=== PATIENT | female | born 1990 | race Caucasian/White ===

== ENCOUNTER 2016-06-02 06:30 | Inpatient (IN) | payer BC, MEDICAID ==
[2016-05-30 13:14] LABS: HEMATOCRIT 35.5 % (36.0-48.0); HEMOGLOBIN 10.7 g/dL (12-16); MCH 24.5 pg (26.0-34.0); MCHC 30.1 g/dL (31.0-37.0); MCV 81.2 fL (80.0-100.0); RBC 4.37 10x6/uL (4.00-5.40); RDW 16.2 % (11.5-14.5); WBC 8.8 10x3/uL (4.8-10.8)
[2016-05-30 13:32] LABS: APTT 31.2 SECONDS (22.8-39.4); INR 1.11 (0.85-1.17); PROTIME 14.2 SECONDS (11.6-15.0)
[2016-05-30 13:37] LABS: CALC OSMOLALITY 274 mosm/kg (275-300); CALCIUM 8.3 mg/dL (8.5-10.1); CARBON DIOXIDE 30.3 mmol/L (21.0-32.0); CHLORIDE - SERUM 101 mmol/L (98-107); CREATININE - SERUM 0.6 mg/dL (0.6-1.3); GLUCOSE 91 mg/dL (74-106); POTASSIUM - SERUM 4.5 mmol/L (3.5-5.1); SODIUM 138 mmol/L (136-145); UREA NITROGEN 11 mg/dL (7-18); eGFR NON AFRICAN AMERICAN > 90 mL/min (90-120)
[2016-06-02] VITALS (12 sets, daily range): BP systolic 72–94; BP diastolic 32–46; Ht 170.2 cm; Wt 53.6 kg
[~2016-06-02] VITALS: Ht 170.2 cm; Wt 53.6 kg
[~2016-06-02 06:30] MED LIST: ACIDOPHILUS LAC1 CAP PO; ADVIL200 MG PO; ATIVAN0.5 MG PO; BYSTOLIC2.5 MG PO; CELEXA20 MG PO; DAKIN'S 0.125%480 M1 TOPICAL; DITROPAN X10 MG/BOTT PO; ENDOCET 10-3251 TAB PO; FOLIC ACID1 MG PO; FUROSEMIDE20 MG PO; KEPPRA1000 MG PO; KLOR-CON 1010 MEQ PO; LEVOTHYROXINE100 MCG PO; OMEPRAZOLE20 M1 PO; PHENERGAN25 M1 PO; SANTYL30 GM TP; VITAMIN B-1000 MCG/M IM; VITAMIN D250000 UNIT PO
[2016-06-02 07:31] LABS: HCG SERUM NEGATIVE (NEGATIVE)
--- NOTE | 2016-06-02 07:31 | NUR ---
0700 PT STATES NO CHANGES TO HEALTH HISTORY ASSESSMENT SINCE INTERVIEWED ON 05/30/16. PT DENIES ANY SEIZURE ACTIVITY OVER THE WEEKEND. LAST BM: 06/01/16. UA REPORT FROM 05/30/16 DELIVERED BY PT. POSITIVE (+) FOR NITRATE. OR, MARYCHUY FERRARA R.N. CALLED & NOTIFIED. DR. SUNG NOT PRESENT IN OR YET JOSIAS Suarez TO NOTIFY DR. SUNG. Domi SHAHID R.N. 0725 CALL RECEIVED FROM JOSIAS Suarez TO Vianey MENDOZA R.N. STATES DR. SUNG SAID TO CONTINUE THAT SURGERY WILL BE DONE +/NITRATE OKAY. Domi SHAHID R.N.
--- NOTE | 2016-06-02 09:57 | NUR ---
6153 DR. SUNG FINISHES, DR. JIMENEZ IS PAGED
--- NOTE | 2016-06-02 10:11 | NUR ---
1011 DR. JIMENEZ ARRIVES FOR PORT PLACEMENT
--- NOTE | 2016-06-02 10:25 | NUR ---
NOTIFIED PT MOTHER IN 2500 PORT PLACEMENT AT PT REQUEST. NO OBJECTIONS MADE, MOTHER ASKS FOR PROCEDURE TIME AND SAYS OK
--- NOTE | 2016-06-02 11:03 | NUR ---
OK TO TRANSFER TO FLOOR IF SBP>80 PER ANESTHESIA
--- NOTE | 2016-06-02 13:44 | NUR ---
PATIENT IS RESTING QUIETLY WITH EYES CLOSED.
--- NOTE | 2016-06-02 14:01 | NUR ---
PAGED TO NOTIFY HIM OF PATIENT'S BLOOD PRESSURES.
--- NOTE | 2016-06-02 14:05 | NUR ---
NO BAKE MOLDER ASSISTED PATIENT TURNING TO HER LEFT SIDE, POSITIONED WITH A PILLOW.
--- NOTE | 2016-06-02 18:57 | OP ---
PATIENT NAME: SANTANA PADILLA MEDICAL RECORD: [id number] :90 LOCATION:D.MS [id number] ADMISSION DATE:06/02/16 SURGEON: RENNY SUNG MD DATE OF OPERATION: 06/02/2016 PREOPERATIVE DIAGNOSIS: 1. Chronic right hip dislocation. 2. Incomplete paraplegia with paresthesia. POSTOPERATIVE DIAGNOSES: 1. Chronic right hip dislocation. 2. Incomplete paraplegia with paresthesia. SURGEON: Renny Sung MD ANESTHESIA: General. PROCEDURE: Right hip Girdlestone arthroplasty. INTRAOPERATIVE COMPLICATIONS: None. SUMMARY OF PATHOLOGIC FINDINGS: The patient had a chronic dislocated right hip causing recurring buttock wounds from under pressure. OPERATIVE SUMMARY IN DETAIL: After obtaining the appropriate preoperative orthopedic surgery consent as well as anesthetic consultation, evaluation and clearance operating room and placed on the table in supine position. After general laryngeal mask was administered, the patient was placed in a left lateral decubitus position. All pressure points were well padded to include down leg peroneal pad, she was held firmly to the operating table using the vacuum pack suction system. Right lower extremity and hip were then prepped and draped in routine sterile fashion. Posterior approach was utilized and incision was made, taken down the level of the gluteus sulma to the level ____ external rotators. Hip capsule was incised and femoral neck cut was made and the femoral head was removed. Wound was copiously irrigated. The patient did have somewhat of a heriberto-acetabulum. Having completed this irrigation, IT band was closed with #2 Ethibond followed by #1 Vicryl, 2-0 Vicryl and skin ines. Sterile dressings were applied. At this point, the patient was then placed in the supine position and then prepped and draped for port by Dr. Maza and see separate dictation. Please note that all final needle and sponge counts were correct. TRANSINT:[id number] Voice Confirmation ID: [id number] DOCUMENT ID: [id number] PINEDA GOYAL, RENNY SANDOVAL at 1857 CC: [id number] DICTATION DATE: 06/02/16 1010 SENIOR EDITOR: 06/02/16 1327 ADM IN [address] [place] [address]
--- NOTE | 2016-06-02 19:04 | NUR ---
SPOKE WITH NURSE FROM [facility]. SHE STATED "WE JUST GOT THE URINE CULTURE BACK ON SANTANA PADILLA. SHE HAS ESBL IN HER URINE." SHE STATED SHE WILL FAX THE RESULTS.
--- NOTE | 2016-06-02 19:15 | NUR ---
RECIEVED SHIFT REPORT. PT IS LYING IN BED. ALERT AND ORIENTED AND ABLE TO VERBALIZE NEEDS. IV IS PATENT AND FLUIDS ARE RUNNING PER ORDER. PT IS ABLE TO TURN SELF IN BED. COLOSTOMY NOTED TO LEFT ABDOMEN. CATHTER ATTACHED TO RIGHT ABDOMEN. DRESSING TO RIGHT HIP C/D/I. DRESSING TO BUTTOCKS C/D/I. PT STATES PAIN IS 9/10 WITH CATTLE AND WHEAT FARMER PUMP. ISOLATION PRECAUTIONS IN PLACE. NO NEEDS ARE VERBALIZD AT THIS TIME. WILL CONTINUE TO MONITOR. SIDE RAILS ARE UP X 2. BED IS IN LOWEST POSITION. CALL LIGHT IS WITHIN REACH.
--- NOTE | 2016-06-02 19:30 | NUR ---
PUT PATIENT IN CONTACT ISOLATION. EXPLAINED TO PATIENT ABOUT THE ISOLATION PRECAUTIONS. PATIENT VERBALIZED UNDERSTANDING.
--- NOTE | 2016-06-02 22:00 | NUR ---
SHIFT ASSESSMENT COMPLETED. NIGHT MEDS GIVEN WITH NO PROBLEMS. PT SELF CLEANED CATHETER AREA. NO NEEDS ARE VOICED. WILL MONITOR. SIDE RAILS X 2. BED LOW. CALL LIGHT IN REACH.
[2016-06-03] VITALS: BP 78/40
[2016-06-03 04:00] VITALS: BP 86/42
[2016-06-03 05:39] LABS: HEMATOCRIT 29.3 % (36.0-48.0); HEMOGLOBIN 8.6 g/dL (12-16); MCH 23.7 pg (26.0-34.0); MCHC 29.4 g/dL (31.0-37.0); MCV 80.7 fL (80.0-100.0); MEAN PLATELET VOLUME 8.8 fL (7.4-10.4); RBC 3.63 10x6/uL (4.00-5.40); RDW 16.2 % (11.5-14.5); WBC 6.3 10x3/uL (4.8-10.8)
[2016-06-03 08:38] VITALS: BP 84/33
[2016-06-03 13:04] VITALS: BP 86/40
--- NOTE | 2016-06-03 15:06 | NUR ---
WOUND CARE: PT HAS HX OF PRESSURE INJURIES. HER ENTIRE BOTTOM SACRUM TO PERINIUM AND NEARLY HIP TO HIP IS A STAGE 4 PRESSURE INJURY. IT DOES APPEAR TO HAVE HEALED SOME EVIDENCED BY NEW PINK TISSUE AT [facility]. THIS WOUND IS BEING TREATED WITH 0.125 DAKINS SOLUTION WET TO DRY DRESSINGS/DAILY. AFTER PACKING WOUND AND LOOSELY FILLING UNDERMINING AND THE WOUND BED, IT IS COVERED WITH 4X4S AND ABD PADS. IT IS THEN SECURED WITH MEDIPORE TAPE. THERE IS A STAGE 3// 1CM X 1CM X 0.3CM ON LEFT OUTER ANKLE. SANTYL IS BEING APPLIED TO THIS WOUND DAILY. LEFT GROIN HAS AN OPEN AREA MEASURING 4CM X 1CM X 0.5CM. SANTYL IS BEING APPLIED DAILY TO THIS WOUND. RIGHT HIP DRESSING FROM SURGERY IS DRY AND INTACT. WOUND CARE WILL MONITOR.
--- NOTE | 2016-06-03 15:45 | NUR ---
* Is the patient Alert and Oriented? Yes 0 * Preadmission Environment Flat Knitter Half-Way 0 * [facility] * ADLs Partial Dependent 0 * Partial ADLs (Assistance needed) Ambulation Bathing Dressing Medication Management Toileting 0 * Equipment Hospital Bed Abdullahi Lift Ostomy Supplies Wheelchair 0 * Additional services required to return to the preadmission environment? Yes 0 * Can the patient safely return to the preadmission environment? Yes 0 * Has this patient been hospitalized within the prior 30 days at any hospital? No 06/03/2016 15:46 DCP: Discharge Planning Patient Name: SANTANA PADILLA Admission Status: Elective Accout number: [id number] Admission Date: 06-02-2016 : 1990 Admission Diagnosis: Attending: KARI Current LOS: 1 Anticipated DC Date: 06-05-2016 Planned Disposition: Primary Insurance: BLUE CROSS [facility] Discharge Planning Comments: CM met with patient to assess dc plans/needs. Patient states she has been a resident at [facility] since August of 2015. At dc, she plans to return there. Spoke with Kaity at facility - they are going to try to get insurance auth for a skilled bed when she discharges. Referral faxed. CM will follow. Local Announcer: Rebeca Park
[2016-06-03 17:07] VITALS: BP 87/44
[2016-06-03 18:54] LABS: APPEARANCE CLOUDY (CLEAR); BILIRUBIN NEGATIVE (NEGATIVE); COLOR YELLOW (YELLOW); GLUCOSE NEGATIVE (NEGATIVE); KETONE NEGATIVE (NEGATIVE); LEUKOCYTE ESTERASE 1+ (NEGATIVE); NITRITE POSITIVE (NEGATIVE); PROTEIN TRACE mg/dL (NEGATIVE); SPECIFIC GRAVITY 1.015 (1.005-1.020); UROBILINOGEN NORMAL (NORMAL)
[2016-06-03 18:55] LABS: BACTERIA MANY /hpf (NONE SEEN); RED CELLS - URINE 0-5 /hpf (0-5)
[2016-06-03 20:00] VITALS: BP 80/32
--- NOTE | 2016-06-03 20:56 | NUR ---
PATIENT RESTING IN BED. C/O BREAK THROUGH PAIN. PRN PERCOCET GIVEN ORDERED. SCHEDULED MEDS GIVEN. ASSESSMENT COMPLETED. DENIES ANY OTHER NEEDS AT THIS TIME. BED LOW. CALL LIGHT IN REACH
--- NOTE | 2016-06-03 22:20 | NUR ---
RESTING WITH EYES CLOSED, RESP WITH EASE, IV INFUSING WITH EASE, NO DISTRESS NOTED, FALL PRECAUTIONS IN PLACE, CL IN REACH
[2016-06-04] VITALS (13 sets, daily range): BP systolic 80–96; BP diastolic 38–54
[2016-06-04 04:29] LABS: HEMATOCRIT 27.3 % (36.0-48.0); MCHC 29.3 g/dL (31.0-37.0); MEAN PLATELET VOLUME 8.8 fL (7.4-10.4); RBC 3.33 10x6/uL (4.00-5.40); RDW 16.2 % (11.5-14.5); WBC 5.5 10x3/uL (4.8-10.8)
--- NOTE | 2016-06-04 07:30 | NUR ---
PATIENT RECEIVED IN LEFT LATERAL POSITION RESTING WITH EYES CLOSED. RESPIRATIONS EVEN AND UNLABORED. SIDE RAILS UP X2. BED IN LOW POSITION. CALL LIGHT IN REACH.
--- NOTE | 2016-06-04 09:23 | NUR ---
PATIENT ALERT IN HIGH CRAWFORD POSITION EATING BREAKFAST. TOLERATING WELL. SCHEDULED MEDICATION ADMINISTERED WELL PRN PERCOCET FOR PAIN 11/23. REFUSES TO HAVE DRESSINGS CHANGED AT THIS TIME. INSTRUCTED PATIENT TO LET NURSE KNOW WHEN SHE WAS READY. STATES UNDERSTANDING. ATTEMPTED TO INSTRUCT PATIENT ON USE INCENTIVE SPIROMETER. PATIENT STATES "I WON'T USE THAT." DENIES NEEDS. SIDE RAILS UP X2. BED IN LOW POSITION. CALL LIGHT AND BONDING AGENT BUTTON IN REACH.
--- NOTE | 2016-06-04 10:54 | NUR ---
SPOKE WITH SAL JOSEPH APN FOR DR. SUNG. MRS. PADILLA IS CONCERNED ABOUT HER PAIN CONTROL DURING HER BLOOD TRANSFUSION , SHE STATES " I TAKE PERCOCET ROUTINELY AND IT WILL NOT TOUCH THIS PAIN." ORDERS RECEIVED FOR DILAUDID 2 MG IVP TIMES ONE PRIOR TO BLOOD TRANSFUSION THE FARM EQUIPMENT MECHANIC CAN NOT RUN WITH THE BLOOD.
--- NOTE | 2016-06-04 11:50 | NUR ---
PRBC INITIATED PER ORDER. VITAL SIGNS STABLE. SIDE RAILS UP X3. BED IN LOW POSITION. CALL LIGHT IN REACH.
--- NOTE | 2016-06-04 11:55 | NUR ---
DRESSINGS TO BUTTOCK, LEFT ANKLE AND LEFT GROIN CHANGED PER ORDERS. WELL TOLERATED.
--- NOTE | 2016-06-04 14:15 | NUR ---
PRBC TRANSFUSION COMPLETE. VITAL SIGNS STABLE. TOLERATED WELL. SIDE RAILS UP X2. BED IN LOW POSITION. CALL LIGHT IN REACH.
--- NOTE | 2016-06-04 17:52 | NUR ---
ALERT IN BED TALKING ON PHONE. RATES PAIN /. PERCOCET PER PRN ORDER. SIDE RAILS UP X2. BED IN LOW POSITION. CALL LIGHT IN REACH.
--- NOTE | 2016-06-04 19:00 | NUR ---
PATIENT IN BED WATCHING TV. HOB 40 DEGREES. AAOX4. RR EVEN AND UNLABORED. 0 S/S OF DISTRESS. STATES PAIN IS A 9/10. LEFT INFUSAPORT PATENT WITH DRESSING CDI. UROSTOMY AND COLOSTOMY TO ABD. DRESSINGS TO BUTTOCKS, LEFT GROIN, AND LEFT ANKLE CDI. SISTER AT BEDSIDE. SRX2. BED LOW. CALL LIGHT WITHIN REACH.
--- NOTE | 2016-06-04 22:15 | NUR ---
ASSESSMENT COMPLETE. NIGHTTIME MEDS GIVEN. PERCOCET GIVEN FOR BREAKTHROUGH PAIN. WILL REASSESS.
--- NOTE | 2016-06-05 02:10 | NUR ---
PERCOCET GIVEN FOR BREAKTHROUGH PAIN. DIGITAL MEDIA PRODUCER SYRINGE CHANGED.
[2016-06-05 04:00] VITALS: BP 81/36
[2016-06-05 06:25] LABS: HEMATOCRIT 29.3 % (36.0-48.0); HEMOGLOBIN 8.7 g/dL (12-16); MCH 24.3 pg (26.0-34.0); MCHC 29.7 g/dL (31.0-37.0); MCV 81.8 fL (80.0-100.0); MEAN PLATELET VOLUME 8.7 fL (7.4-10.4); RBC 3.58 10x6/uL (4.00-5.40); RDW 15.9 % (11.5-14.5); WBC 5.5 10x3/uL (4.8-10.8)
[2016-06-05 06:35] LABS: CALC OSMOLALITY 275 mosm/kg (275-300); CALCIUM 7.7 mg/dL (8.5-10.1); CARBON DIOXIDE 29.4 mmol/L (21.0-32.0); CHLORIDE - SERUM 105 mmol/L (98-107); CREATININE - SERUM 0.5 mg/dL (0.6-1.3); GLUCOSE 110 mg/dL (74-106); POTASSIUM - SERUM 3.9 mmol/L (3.5-5.1); SODIUM 139 mmol/L (136-145); UREA NITROGEN 5 mg/dL (7-18); eGFR NON AFRICAN AMERICAN > 90 mL/min (90-120)
--- NOTE | 2016-06-05 07:25 | NUR ---
PATIENT RECEIVED ALERT IN HIGH CRAWFORD POSITION. NO SIGNS OF DISTRESS NOTED. REQUESTING JELLO X3. C/O SORE THROAT AND STATES THE JELLO IS THE ONLY THING THAT WILL HELP. DENIES FURTHER NEEDS. SIDE RAILS UP X2. BED IN LOW POSITION. CALL LIGHT IN REACH.
[2016-06-05 08:32] VITALS: BP 81/33
[2016-06-05] MEDS ORDERED: ELIQUIS2.5 MG PO (08:55)
[2016-06-05] MEDS ORDERED: DILAUDID8 MG PO (08:56)
--- NOTE | 2016-06-05 09:15 | NUR ---
PATIENT ALERT IN BED. NO SIGNS OF DISTRESS NOTED. SCHEDULED MEDICATION ADMINISTERED. PATIENT ANTICIPATING D/C TO FACILITY TODAY. REFUSES DRESSING CHANGES SINCE SHE IS TO D/C TODAY SHE WANTS HER NORMAL WOUND CARE NURSE TO CHANGE THEM. DENIES NEEDS. SIDE RAILS UP X2. BED IN LOW POSITION. CALL LIGHT IN REACH.
--- NOTE | 2016-06-05 10:38 | NUR ---
06/05/2016 10:32 DCP: Discharge Planning Patient Name: SANTANA PADILLA Encounter No: [id number] : 1990 Primary Insurance: BLUE CROSS [facility] Anticipated DC Date: 06-05-2016 Planned Disposition: [facility] Facility External Planned Provider: [facility] DCP follow-up note: DC order rec'd. Patient will transfer back to [facility] via ambulance to a custodial bed. Nursing to call report to [phone]. Patient in agreement with discharge plan. No changes to plan. Rebeca Park
--- NOTE | 2016-06-05 10:45 | NUR ---
INFUSAPORT FLUSHED AND DEACCESSED PER PROTOCOL. SITE COVERED WITH GAUZE AND BANDAID. WELL TOLERATED.
--- NOTE | 2016-06-05 11:50 | NUR ---
PATIENT D/C TO [facility] WITH [facility]. REPORT CALLED TO [facility]. NEGRITO RECEIVED REPORT
--- NOTE | 2016-06-13 13:21 | OP ---
PATIENT NAME: SANTANA PADILLA MEDICAL RECORD: [id number] :[birth year] LOCATION:D.MS [id number] ADMISSION DATE:06/02/16 SURGEON: SANTANA JIMENEZ MD DATE OF OPERATION: 06/02/2016 PREOPERATIVE DIAGNOSES: 1. Need for chronic IV access. 2. Paraplegia. 3. Recurrent hip dislocation. POSTOPERATIVE DIAGNOSES: 1. Need for chronic IV access. 2. Paraplegia. 3. Recurrent hip dislocation. PROCEDURE: Left subclavian vein PowerPort placement with fluoroscopic interpretation. SURGEON: Santana Jimenez MD. REPORT OF PROCEDURE: The patient's left chest was prepped and draped in sterile fashion. A needle was used to cannulate the left subclavian vein. The guidewire was advanced with ease. Fluoro was then used to note that the wire was in good position in the venous system. A skin incision was made in the left lateral chest and a subcutaneous pouch was made overlying the pectoral fascia and the catheter was then tunneled between this pouch and the wire exit site. The port was sutured to the pectoral fascia using interrupted 2-0 Prolenes times 2. The catheter was then cut with a beveled tip at 19 cm. The dilator trocar device was placed over the wire and the wire and dilator were removed. The catheter tip was advanced through the trocar and the trocar was removed. The catheter tip resting in good position in the superior vena cava. The catheter aspirated nonpulsatile dark blood and flushed easily with heparinized saline. The subcutaneous pouch was reapproximated with interrupted 3-0 Vicryls and the skin was closed with running subcutaneous 5-0 Monocryl. COMPLICATIONS: None. CONDITION: Stable. ANESTHESIA: General endotracheal. BLOOD LOSS: Minimal. TRANSINT:[id number] Voice Confirmation ID: [id number] DOCUMENT ID: [id number] SANTANA JIMENEZ MD at 1321 CC: [id number] DICTATION DATE: 06/02/16 1101 FEATURES EDITOR: 06/02/16 1307 DIS IN 06/05/16 [place] [address]
== END 2016-06-05 11:50 | DRG 498 ==
LOC: D.OPS 06:30 → D.PAN 10:15 → D.OPS 10:41 → D.MS 10:41 → D.OPS 11:00 → D.PAN 11:00 → EDSTATUS 11:00 → D.MS 12:15 → D.OPS 14:50 → D.MS 14:50
PROVIDERS: Anesthesiology; Surgery; ADMIT Orthopaedic Surgery
PROC: B5181ZA Fluoroscopy of Superior Vena Cava using Low Osmolar Contrast, Guidance (ICD-10-PCS; 2016-06-02)
PROC: 0QB60ZZ Excision of Right Upper Femur, Open Approach (ICD-10-PCS; principal; 2016-06-02 08:30)
PROC: 02HV33Z Insertion of Infusion Device into Superior Vena Cava, Percutaneous Approach (ICD-10-PCS; 2016-06-02 08:30)
DX: M24.451 Recurrent dislocation, right hip (principal); G82.22 Paraplegia, incomplete; G40.909 Epilepsy, unspecified, not intractable, without status epilepticus; K21.9 Gastro-esophageal reflux disease without esophagitis; R01.1 Cardiac murmur, unspecified; F32.9 Major depressive disorder, single episode, unspecified; F41.9 Anxiety disorder, unspecified; R82.71 Bacteriuria; B96.20 Unspecified Escherichia coli [E. coli] as the cause of diseases classified elsewhere; Z72.0 Tobacco use

== ENCOUNTER → 2016-08-01 11:06 | Outpatient (CLI) | payer BC, MEDICAID ==
[2016-06-02 11:43] VITALS: BMI 18.5
[~2016-08-01 11:06] MED LIST changes: +DILAUDID8 MG PO; +ELIQUIS2.5 MG PO
== END | disposition home or self-care (01) ==
LOC: D.OPS 07-31 11:30 → D.SP 07-31 14:00 → D.OPS 11:06
DX: T85.9XXA Unspecified complication of internal prosthetic device, implant and graft, initial encounter (principal)

== ENCOUNTER 2016-08-03 03:59 | Inpatient (IN) | payer BC, MEDICAID ==
[~2016-08-03] VITALS: Ht 170.2 cm; Wt 56.8 kg
--- NOTE | ~2016-08-03 | OP ---
PATIENT NAME: SANTANA PADILLA MEDICAL RECORD: [id number] :90 LOCATION:D.M2 D.2107 ADMISSION DATE:08/03/16 SURGEON: RENE COY MD DATE OF OPERATION: 08/12/2016 DATE OF OPERATION: 08/12/2016. PREOPERATIVE DIAGNOSES: 1. Bacteremia. 2. Infected port. 3. Osteomyelitis. POSTOPERATIVE DIAGNOSES: 1. Bacteremia. 2. Infected port. 3. Osteomyelitis with occlusion of the right basilic vein and very tight stenosis of the right cephalic vein. PROCEDURE: 1. Placement of a right cephalic vein midline. 2. Nonselective cephalic venogram with immediate surgeon interpretation. 3. Nonselective right basilic venogram without immediate surgeon's interpretation. 4. Removal of infected left infraclavicular subcutaneous port and vascular catheter. 5. Immediate surgeon interpretation of the ultrasonographic and fluoroscopic interpretation. SURGEON: Rene Coy MD. MACHINIST SET UP: None. BLOOD LOSS: Minimal. ANESTHESIA: General. COMPLICATIONS: None. The patient has an infected port. Dr. Costa has asked for the port to be removed. She would like to have a nonpermanent vascular access placed at this time because the patient does have a fungemia. OPERATIVE COURSE: The patient was conveyed to the operating room electively on 08/12/2016. General anesthesia was induced by the anesthesia staff. The right upper extremity was sterilely prepped and draped. It was abducted at 90 degrees to the patient's trunk. A Venice tourniquet was placed in the upper arm. Ultrasonographic images were obtained and one of these was placed in the chart. The surgeon interpreted the ultrasonographic images. No radiologist was present for this procedure. The ultrasonographic images and radiographic images were interpreted by the surgeon and are dictated within the body of this operative note. I identified a compressible basilic vein. The ultrasound transducer was placed in an axial orientation. I percutaneously accessed the basilic vein in an axial orientation. A guidewire passed for a short period of time, but as the basilic OPERATIVE REPORT [id number] SANTANA PADILLA vein joined the brachial vein to become the axillary vein in the chest, I would not pass any further. Through the needle, a venogram was performed. This revealed some back flow of dye from the basilic vein into the brachial vein. There was a tiny wisp of dye that went antegrade up the basilic vein and then stopped. Therefore, placement of a PICC line was not going to be a reasonable option in this case. I wanted to avoid placing a PICC catheter in the brachial vein for fear of injury to nervous structure. I identified the cephalic vein, which was compressible. It was placed in an axial orientation. The cephalic vein was percutaneously accessed with the guidewire advanced. Advanced to about the level of the shoulder, it would not advance any further. The guidewire was removed. I injected dye through the needle. The venogram revealed that there was a wisp of dye that advanced up the cephalic vein into the subclavian venous system; however, it was very narrow and it was going to require balloon angioplasty in order to advance a catheter through this very narrowed area. I elected instead to place a midline. I shortened the PICC catheter. The dilator introducer was placed over the guidewire. The dilator was removed. Over the guidewire, the shortened mid catheter was advanced. The peel-away introducer was removed. The mid catheter was then sutured in placed, and then also affixed to the underlying skin with the PICC adhesive device. I then injected some dye through the midline. It revealed that the midline was well placed, there was no extravasation of contrast and contract flowed freely through this narrowed area of the cephalic vein and into the subclavian venous system. Attention was then turned to removal of the left side of subcutaneous port and vascular catheter. This area was sterilely prepped and draped. I incised through the patient's scar. I dissected down to the port and vascular catheter. I cut up the sutures from the port to the underlying pseudo bursa. A pursestring suture was placed around the fibrous sheath into the vascular system. This was a 3-0 Vicryl suture. The port and vascular catheter were then removed in their entireties. The cultures were obtained within the port pocket. I cauterized the port pocket. The subdermis was approximated with interrupted 3-0 Vicryl sutures. A sterile dressing was applied. The patient was then extubated and conveyed to post-anesthesia care unit where she was in stable condition. The tip of the vascular catheter was sent for culture. TRANSINT:[id number] Voice Confirmation ID: [id number] DOCUMENT ID: [id number] RENE COY MD CC: Eve COSTA [id number] DICTATION DATE: 08/12/16 1733 PICKING MACHINE OPERATOR: 08/13/16 0128 ADM IN [facility] [address] [id number]
[2016-08-03 04:46] LABS: HEMATOCRIT 28.2 % (36.0-48.0); HEMOGLOBIN 8.1 g/dL (12-16); MCH 22.5 pg (26.0-34.0); MCHC 28.7 g/dL (31.0-37.0); MCV 78.3 fL (80.0-100.0); MEAN PLATELET VOLUME 9.5 fL (7.4-10.4); PLATELET COUNT 359 10x3/uL (130-400); RDW 17.6 % (11.5-14.5); WBC 28.9 10x3/uL (4.8-10.8)
[2016-08-03 05:02] LABS: ALBUMIN 1.6 g/dL (3.4-5.0); ANION GAP 11.2 mmol/L (8-16); BILIRUBIN - TOTAL 0.19 mg/dL (0.2-1.3); CALCIUM 8.4 mg/dL (8.5-10.1); CARBON DIOXIDE 29.1 mmol/L (21.0-32.0); CREATININE - SERUM 1.2 mg/dL (0.6-1.3); POTASSIUM - SERUM 3.3 mmol/L (3.5-5.1); PROTEIN - SERUM 7.2 g/dL (6.4-8.2)
[2016-08-03 05:11] LABS: BASOPHILS 1 % (0-2); EOSINOPHILS 2 % (0-7); LYMPHOCYTES 24 % (15-50); MONOCYTES 5 % (2-11); NEUTROPHILS 68 % (40-80)
[2016-08-03 05:12] LABS: APPEARANCE HAZY (CLEAR); BACTERIA MANY /hpf (NONE SEEN); BILIRUBIN NEGATIVE (NEGATIVE); COLOR YELLOW (YELLOW); EPITHELIAL CELLS NSEEN /hpf (0-5); GLUCOSE NEGATIVE (NEGATIVE); KETONE NEGATIVE (NEGATIVE); LEUKOCYTE ESTERASE 2+ (NEGATIVE); NITRITE POSITIVE (NEGATIVE); PROTEIN 1+ mg/dL (NEGATIVE); SPECIFIC GRAVITY 1.015 (1.005-1.020); UROBILINOGEN NORMAL (NORMAL); WHITE CELLS - URINE >50 /hpf (0-5)
[2016-08-03 05:12] LABS: PLATELET ESTIMATE NORMAL
[2016-08-03 07:23] VITALS: BP 91/37
--- NOTE | 2016-08-03 07:30 | NUR ---
ALERT AND ORIENTED X4. ARRIVE TO ROOM AT 0630. QUICK START COMPLETED BY ALEXEI ELAINE. COMPLAINS OF ABDOMINAL PAIN 12/23. INITIATE PAIN MANAGEMENT ORDERED. SELF CARES FOR COLOSTOMY. UROSTOMY DRAINING INTO DEGROOT BAG. DENIES SOB. ABLE TO REPOSITION UPPER BODY IN BED INDEPENDENTLY. CONTINUE PLAN OF CARE AND ADMISSION PROCESS. BED LOCKED AND LOW. CALL LIGHT IN REACH. TWO SIDERAILS UP.
[2016-08-03 12:09] VITALS: BP 87/35
[2016-08-03 16:10] VITALS: BP 87/41
[2016-08-03 18:21] VITALS: BP 91/37; BMI 18.8
--- NOTE | 2016-08-03 21:34 | NUR ---
REC'D. AT [facility]. OF SHIFT IN BED WATCHING TV.DRINKING PUNCH/EATING JELLO. C/O NAUSEA AND PAIN STILL.INSTRUCTED NOT TIME FOR NAUSEA OR PAIN MEDS. AT PRESENT TIME.WILL CONTINUE TO MONITOR FOR ANY CHGES. AND FOLLOW CURRENT PLAN OF CARE
[2016-08-03 21:38] VITALS: BP 89/56
--- NOTE | 2016-08-04 00:28 | NUR ---
ASSOCIATE DIRECTOR REGULATORY AFFAIRS AT BEDSIDE FOR VS. NEEDS ADDRESSED AT THIS TIME. CALL LIGHT IN REACH. WILL CONT TO MONITOR.
[2016-08-04 03:13] VITALS: BP 80/29
[2016-08-04 06:06] LABS: CARBON DIOXIDE 29.2 mmol/L (21.0-32.0); CHLORIDE - SERUM 105 mmol/L (98-107); GLUCOSE 84 mg/dL (74-106); SODIUM 141 mmol/L (136-145)
--- NOTE | 2016-08-04 06:13 | NUR ---
BLOOD PRESSURE 0515 PERCOCET CRUSHED AND GIVEN PER REQUEST. AT 0600 REQUESTING LOLA ENCOURAGED TO PLEASE TAKE DECREASE IN BLOOD PRESSURE READINGS SERIOUSLY 80/29.STATES DURING THE DAY SHIFT THEY ONLY MAKE ME WAIT 30 MINUTES BETWEEN IV AND PO PAIN MEDS.
[2016-08-04 06:20] LABS: CALC OSMOLALITY 279 mosm/kg (275-300); CREATININE - SERUM 0.6 mg/dL (0.6-1.3); POTASSIUM - SERUM 4.2 mmol/L (3.5-5.1); UREA NITROGEN 13 mg/dL (7-18); eGFR NON AFRICAN AMERICAN > 90 mL/min (90-120)
[2016-08-04 06:26] LABS: BASOPHILS 0.2 % (0-2); EOSINOPHILS 1.1 % (0-7); HEMATOCRIT 25.2 % (36.0-48.0); IMMATURE GRANULOCYTES 0.8 % (0-5); LYMPHOCYTES 27.2 % (15-50); MCH 22.3 pg (26.0-34.0); MCHC 27.8 g/dL (31.0-37.0); MEAN PLATELET VOLUME 9.5 fL (7.4-10.4); MONOCYTES 3.1 % (2-11); NEUTROPHILS 67.6 % (40-80); PLATELET COUNT 374 10x3/uL (130-400); RBC 3.14 10x6/uL (4.00-5.40)
[2016-08-04 06:46] VITALS: BP 85/49
[2016-08-04 06:49] LABS: WBC 11.6 10x3/uL (4.8-10.8)
[2016-08-04 06:50] LABS: MCV 80.3 fL (80.0-100.0)
--- NOTE | 2016-08-04 08:08 | NUR ---
AM ROUNDS - PT IS AWAKE AND ALERT. LEFT CHEST INFUSAPORT, NS @ 100CC/HR. PT IS A PARAPALIGIC. PT IS REQUESTING DILAUDID. EXPLAINED TO PT THAT HER BP IS VERY LOW AND IT CONCERNS ME. WILL CONTINUR TO MONITOR.
[2016-08-04 08:24] LABS: % SATURATION 39 % (15-55); IRON 29 ug/dl (35-150); TOTAL IRON BIND CAPACITY 74 ug/dl (260-445)
[2016-08-04 08:25] VITALS: BP 81/33
[2016-08-04 08:26] LABS: UNSAT IRON BIND CAPACITY 45 ug/dl (150-375)
[2016-08-04 13:03] VITALS: BP 81/34
--- NOTE | 2016-08-04 16:47 | NUR ---
SCD'S ON MAURO LE
[2016-08-04 17:08] VITALS: BP 90/43
[2016-08-04 21:27] VITALS: BP 88/49
--- NOTE | 2016-08-05 00:56 | NUR ---
NURSE ROUNDS 08/04/16 @ 22:00 - PT AWAKE, ALERT, ORIENTED, VISITOR AT BEDSIDE WHO IDENTIFIES HERSELF PTS WOUND NURSE AT [facility]. PT IS REQUESTING HER PRN DILAUDID. I DID ADMINISTER WITH THE CAREFUL CONSIDERATION OF PTS B/P RUNNING LOW. PT STATES SHE USUALLY DOES NOT GO ABOVE 90'S OVER 60'S, AND HAS BEEN LOW 60'S OVER 30'S. I DID GIVE PT 4 CONTAINERS OF APPLEJUICE PER HER REQUEST AND A GRAPE POPSICLE. PT DENIES ANY FURTHER NEEDS. WE DISCUSSED HER NEED FOR BLOOD, IN WHICH PT STATES SHE HAS HAD MANY TRANSFUSIONS WITHOUT ANY REACTIONS THUS FAR. I AM WAITING FOR ANTIBIOTICS TO COMPLETE BEFORE TRANSFUSING THE PRN PRBC'S. WILL CONTINUE TO MONITOR CLOSELY. BED LOW, CALL LIGHT IN REACH, SIDE RAILS X 2, HOB 30 DEGREES.
[2016-08-05 01:46] VITALS: BP 95/36
--- NOTE | 2016-08-05 02:22 | NUR ---
PT REQUESTING PAIN MEDICINE, WANTING DILAUDID. PTS B/P IS TOO LOW AT THIS TIME. PT IS REQUESTING TO HAVE IT RECHECKED. WILL DO THAT AND CONTINUE TO MONITOR CLOSELY. VANC IS ALMOST DONE INFUSING, SO WILL START BLOOD TRANSFUSION SOON.
--- NOTE | 2016-08-05 03:49 | NUR ---
PT AWAKE, ALERT, ORIENTED, CALL FOR ASSISTANCE, HER COLOSTOMY BAG HAD BUST. PT RECEIVED A COMPLETE BED BATH, LINEN CHANGE, GOWN CHANGE, SOILED SHORTS WERE PLACED IN A ZIP LOCK BAGGIE AND PLACED IN A PTS BELONGINGS BAG. PT HAS DEEP, TUNNELED SACRAL DECUBS THAT ALSO REQUIRED CLEAN DRESSING CHANGES. PT IS ABLE TO ASSIST GREATLY WITH HER OWN PERSONAL CARE, AND IS KNOWLEDGEABLE ABOUT HER MEDICATIONS AND WOUND CARE TX SHE RECEIVES FROM [facility]. PRN DILAUDED GIVEN HER B/P DID RISE TO AN ACCEPTABLE LEVEL. AFTER PT CARE WAS COMPLETE, THE FIRST UNIT OF PRBC'S WAS STARTED AT 0330 VIA PTS INFUSAPORT AFTER BLOOD CONSENT WAS SIGNED. PT STATES SHE HAS HAD MULTIPLE TRANSFUSIONS AND HAS NEVER HAD A REACTION. WILL CONTINUE TO MONITOR CLOSELY. STOOL COLLECTED PER ORDER. BED LOW, CALL LIGHT IN REACH, SIDE RAILS X 2, HOB 30 DEGREES.
[2016-08-05 06:24] VITALS: BP 107/49
--- NOTE | 2016-08-05 07:30 | NUR ---
AM ROUNDS- PT IN BED, JEN INSPECTOR OF WEIGHTS AND MEASURESMANAGING ATTORNEY NURSE AT BEDSIDE TO HANG VANCOMYCIN AT THIS TIME. PT DENIES ANY NEEDS, CALL LIGHT IN REACH, NAD NOTED, WILL CONTINUE TO MONITOR.
[2016-08-05 08:22] LABS: FOLATE (FOLIC ACID) - SERUM 5.7 ng/mL (>3.0)
[2016-08-05 09:00] VITALS: BP 112/70; BP 81/32
--- NOTE | 2016-08-05 10:00 | NUR ---
ADMINISTERED MORNING MEDICATIONS, IVPB VANC STILL INFUSING. PT IN BED, DENIES ANY NEEDS AT THIS TIME. CALL LIGHT IN REACH, NAD NOTED, WILL CONTINUE TO MONITOR.
--- NOTE | 2016-08-05 11:45 | NUR ---
Wound Care Consult: Pt is resident of [facility]. Noted numerous pressure injuries: 1- Left Ischial STAGE 4 PRESSURE INJURY 20cm x 20cm x 1.5cm x 3cm from 5-7 oclock. Muscle and tendon is exposed and bone can be felt. The wound bed is pale pink with macerated edges. There is large amount of serous drainage. 2- Right ischial STAGE 4 PRESSURE INJURY 9cm x 9cm x 2cm muscle and tendon exposed. Wound bed is archuleta colored with macerated edges. Large serous drainage. 3- Right lateral ankle DEEP TISSUE INJURY 2CM X 2CM 4- Right lateral foot DEEP TISSUE INJURY 2CM X 1CM 5- Right met head STAGE 3 PRESSURE INJURY 2CM X 2CM X 0.3CM 6- Right great toe STAGE 1 PRESSURE INJURY 1cm x 0.7cm Non-blanchable redness 7- Left lateral ankle UNSTAGEABLE PRESSURE INJURY 3.5cm x 3cm x 0.5cm x black escar. 8- Left lateral lower leg STAGE 3 PRESSURE INJURY 2cm x 2cm x 0.2cm Redressed all open wounds with 4x4s saturated with normal saline/covered with 4x4s and ABD pads on Ischial wounds/ secured with medipore tape and bilateral feet and ankles were wrapped with kerlix. Will order air overlay mattress. Pt needs to be turned (or reminded to turn) every 2 hours. Surgical consult has been placed by Dr. Conway. Wound care will continue to monitor.
[2016-08-05 12:30] VITALS: BP 152/59
--- NOTE | 2016-08-05 15:32 | NUR ---
SECOND UNIT OF PRBC'S STARTED INFUSING AT THIS TIME. BP IS A LITTLE LOW 88/44, ALL OTHER VITAL STABLE. PT STATES PAIN LEVEL OF 8/10, NOT ABLE TO HAVE PAIN MED YET. PT DENIES ANY OTHER NEEDS AT THIS TIME. CALL LIGHT IN REACH, NAD NOTED, WILL CONTINUE TO MONITOR.
[2016-08-05 16:05] VITALS: BP 95/41
--- NOTE | 2016-08-05 16:33 | NUR ---
ADMINISTERED 2MG OF DILAUDID FOR PAIN LEVEL OF 8/10, BP A LITTLE LOW WILL MONITOR. PT DENIES ANY OTHER NEEDS AT THIS TIME, CALL LIGHT IN REACH, NAD NOTED, WILL CONTINUE TO MONITOR.
--- NOTE | 2016-08-05 18:53 | NUR ---
SECOND UNIT OF PRBC'S DONE INFUSING AT THIS TIME, BP A STILL A LITTLE LOW, PT DENIES ANY OTHER NEEDS AT THIS TIME. CALL LIGHT IN REACH, SISTER AT BEDSIDE, NAD NOTED, WILL CONTINUE TO MONITOR.
[2016-08-05 21:07] VITALS: BP 88/50
[2016-08-06] VITALS (7 sets, daily range): BP systolic 76–120; BP diastolic 27–53; Ht 170.2 cm; Wt 56.8 kg
--- NOTE | 2016-08-06 05:59 | NUR ---
NURSE ROUNDS 08/05/16 21:00 - PT LYING IN BED, AWAKE, ALERT, ORIENTED, VISITING WITH HER SISTER AT BEDSIDE. PT REQUESTING PRN DILAUDID, OTHER ROBISON DENIES ANY NEEDS. CONTINUE TO MONITOR CLOSELY. BED LOW, CALL LIGHT IN REACH, SIDE RAILS X 2, HOB 40 DEGREES, BED ALARM ON.
--- NOTE | 2016-08-06 07:45 | NUR ---
PATIENT IS RESTING WITH BLANKETS PULLED UP TO HER NOSE. SHE NODDED HEAD WHEN SPOKEN TO. DENIES DISCOMFORT AT THIS TIME. SHE IS TURNED TO THE RIGHT SIDE. 1ST STEP OVERLAY BED IS AIRED UP. HER IVF ARE INFUSING TO HER LEFT SUBCLAVIAN PORT. REMAINS IN CONTACT ISOLATION.
--- NOTE | 2016-08-06 09:00 | NUR ---
PATIENT GIVEN HER MORNING MEDICATIONS. SHE REFUSES HER BREAKFAST AT THIS TIME AND HASN'T EATEN OR DRANK ANY OF IT TO THIS POINT. HER CATHETER IS PATENT WITH PALE URINE TO BEDSIDE COLLECTION BAG. RECEIVED NOTIFICATION THAT THE PATIENT IS TO GO FOR A WOUND DEBRIDEMENT IN SURGERY TODAY. INFORMED HER THAT SHE IS TO REMAIN NPO. SHE STATES THAT SHE DOESN'T WANT ANYONE EXCEPT HER WOUND CARE DOCTOR TO DEBRID HER WOUNDS. PAGED DR. SAEZ TO NOTIFY HIM.
--- NOTE | 2016-08-06 10:45 | NUR ---
ACCOMPANIED DR. ALBERTO FOR CONVERSATION WITH PATIENT REGARDING NEED FOR BONE BX TO IDENTIFY MICRORGANISMS PRESENT THAT ARE CAUSING HER INFECTION. PATIENT VOICES UNDERSTANDING FOR NEED, AGREES TO HAVE THE DEBRIDMENT. PAGED DR. SAEZ TO NOTIFY HIM. HE RETURNED CALL AND WAS NOTIFIED.
[2016-08-06 13:55] LABS: BASOPHILS 0.2 % (0-2); EOSINOPHILS 1.5 % (0-7); HEMATOCRIT 35.6 % (36.0-48.0); HEMOGLOBIN 10.6 g/dL (12-16); IMMATURE GRANULOCYTES 10.1 % (0-5); LYMPHOCYTES 30.3 % (15-50); MCH 23.9 pg (26.0-34.0); MCHC 29.8 g/dL (31.0-37.0); MCV 80.2 fL (80.0-100.0); MEAN PLATELET VOLUME 9.3 fL (7.4-10.4); MONOCYTES 3.8 % (2-11); NEUTROPHILS 54.1 % (40-80); PLATELET COUNT 370 10x3/uL (130-400); RBC 4.44 10x6/uL (4.00-5.40); RDW 17.1 % (11.5-14.5); WBC 8.9 10x3/uL (4.8-10.8)
[2016-08-06 14:11] LABS: CALC OSMOLALITY 280 mosm/kg (275-300); CALCIUM 7.7 mg/dL (8.5-10.1); CARBON DIOXIDE 28.6 mmol/L (21.0-32.0); CHLORIDE - SERUM 107 mmol/L (98-107); CREATININE - SERUM 0.7 mg/dL (0.6-1.3); GLUCOSE 85 mg/dL (74-106); POTASSIUM - SERUM 4.2 mmol/L (3.5-5.1); SODIUM 143 mmol/L (136-145); UREA NITROGEN 3 mg/dL (7-18); eGFR NON AFRICAN AMERICAN > 90 mL/min (90-120)
--- NOTE | 2016-08-06 14:17 | NUR ---
PATIENT OFF THE UNIT TO SURGERY.
--- NOTE | 2016-08-06 16:21 | NUR ---
MULTIPLE PILLOWS USED FOR POSITIONING
--- NOTE | 2016-08-07 00:04 | NUR ---
PERCOCET 1 TAB GIVEN FOR C/O PAIN.
--- NOTE | 2016-08-07 02:36 | NUR ---
RESTING ON LEFT SIDE, RESPERATIONS EVEN, NO S/S DISTRESS NOTED.
[2016-08-07 03:47] VITALS: BP 86/35
[2016-08-07 05:45] LABS: BASOPHILS 0.1 % (0-2); EOSINOPHILS 0.2 % (0-7); HEMATOCRIT 33.9 % (36.0-48.0); HEMOGLOBIN 10.2 g/dL (12-16); IMMATURE GRANULOCYTES 7.7 % (0-5); LYMPHOCYTES 18.6 % (15-50); MCH 24.2 pg (26.0-34.0); MCHC 30.1 g/dL (31.0-37.0); MCV 80.3 fL (80.0-100.0); MEAN PLATELET VOLUME 9.2 fL (7.4-10.4); MONOCYTES 2.8 % (2-11); NEUTROPHILS 70.6 % (40-80); PLATELET COUNT 428 10x3/uL (130-400); RBC 4.22 10x6/uL (4.00-5.40); RDW 17.5 % (11.5-14.5)
[2016-08-07 06:18] LABS: ALBUMIN 1.3 g/dL (3.4-5.0); ALKALINE PHOSPHATASE 166 U/L (46-116); ALT (SGPT) 18 U/L (10-68); BILIRUBIN - TOTAL 0.13 mg/dL (0.2-1.3); CALC OSMOLALITY 280 mosm/kg (275-300); CALCIUM 7.8 mg/dL (8.5-10.1); CARBON DIOXIDE 28.5 mmol/L (21.0-32.0); CHLORIDE - SERUM 108 mmol/L (98-107); CREATININE - SERUM 0.8 mg/dL (0.6-1.3); GLUCOSE 120 mg/dL (74-106); POTASSIUM - SERUM 3.7 mmol/L (3.5-5.1); PROTEIN - SERUM 5.8 g/dL (6.4-8.2); SODIUM 142 mmol/L (136-145); eGFR NON AFRICAN AMERICAN > 90 mL/min (90-120)
[2016-08-07 06:21] LABS: UREA NITROGEN 4 mg/dL (7-18)
--- NOTE | 2016-08-07 07:20 | NUR ---
PT SLEEPING NO S/S DISTRESS NOTED RESPIRATIONS EVEN AND UNLABORED WILL CONT TO MONITOR
[2016-08-07 08:34] VITALS: BP 84/49
--- NOTE | 2016-08-07 08:51 | OP ---
PATIENT NAME: SANTANA PADILLA MEDICAL RECORD: [id number] :[birth year] LOCATION:D. D.[id number] ADMISSION DATE:08/03/16 SURGEON: RENNY SAEZ MD DATE OF OPERATION: 08/06/2016 SURGEON: Dr. Renny Saez. PREOPERATIVE DIAGNOSES: 1. Bilateral ischial tuberosity osteomyelitis. 2. Sacral osteomyelitis. 3. Left lateral malleolus osteomyelitis. 4. Unstageable stage IV and beyond, posterior sacral decubitus. The patient has ____ 20 cm x 20 cm x 3 cm in depth tissue defect. The patient has a longstanding worsening sacral decubitus. The patient's bone, muscles and tendons are all exposed. There is no skin, there is no subcutaneous tissue, there is no remaining fascia. ANESTHESIA: General. COMPLICATIONS: None. Case was grossly contaminated. ESTIMATED BLOOD LOSS: 10 cc. OPERATIVE COURSE: After consent was obtained, the patient was taken to the operating room. She was intubated with endotracheal intubation. She was place into the prone position. A timeout was taken to confirm the correct patient and procedure. Next, the perineum and left ankle were prepped and draped in typical sterile fashion. At this time, the hammer and chisel were used to get cultures of the deep bone that was exposed, the bilateral ischial tuberosity as well as the sacrum and the left ankle. These cultures were sent in 4 separate containers for tissue culture and sensitivity. The wounds were cauterized. They were filled with bone wax. The patient was dressed with sterile Kerlix, ABDs and tape. At the end of the case, all needle and instrument counts were correct. No complications occurred. The patient was extubated and transferred to the PACU in stable condition. TRANSINT:[id number] Voice Confirmation ID: [id number] DOCUMENT ID: [id number] RENNY SAEZ MD at 0851 CC: [id number] DICTATION DATE: 08/06/16 1608 FITNESS CONSULTANT: 08/07/16 0141 ADM IN [place] [place] [address]
[2016-08-07 11:47] LABS: HCG URINE NEGATIVE (NEGATIVE)
[2016-08-07 11:53] VITALS: BP 81/40
[2016-08-07 11:59] LABS: APPEARANCE SLT CLOUDY (CLEAR); BACTERIA MANY /hpf (NONE SEEN); BILIRUBIN NEGATIVE (NEGATIVE); COLOR YELLOW (YELLOW); EPITHELIAL CELLS OCC /hpf (0-5); GLUCOSE NEGATIVE (NEGATIVE); KETONE SMALL mg/dL (NEGATIVE); LEUKOCYTE ESTERASE TRACE (NEGATIVE); MUCUS >1+ /lpf (NONE SEEN); NITRITE NEGATIVE (NEGATIVE); PROTEIN NEGATIVE (NEGATIVE); SPECIFIC GRAVITY 1.015 (1.005-1.020); UROBILINOGEN NORMAL (NORMAL); WHITE CELLS - URINE >50 /hpf (0-5)
[2016-08-07 15:32] VITALS: BP 88/41
--- NOTE | 2016-08-07 16:47 | NUR ---
PT STILL LAYING IN BED WITH COVERS PULLED OVER HER HEAD, HAS BEEN LIKE THIS ALL DAY. NO S/S DISTRESS NOTED. RESPIRATIONS EVEN AND UNLABORED. WILL CONT TO MONITOR
[2016-08-07 20:00] VITALS: BP 96/51
[2016-08-08] VITALS: BP 104/50
--- NOTE | 2016-08-08 02:03 | NUR ---
NURSE ROUNDS 08/07/16 22:00 - PT LYING IN BED, AWAKE, ALERT, ORIENTED, DENIES ANY NEEDS. CONTINUE TO MONITOR CLOSELY. BED LOW, CALL LIGHT IN REACH, SIDE RAILS X 2, HOB 30 DEGREES.
[2016-08-08 04:00] VITALS: BP 97/49
[2016-08-08 08:03] VITALS: BP 92/49
--- NOTE | 2016-08-08 08:04 | NUR ---
AM ROUNDS - PT IS AWAKE IN BED. LEFT CHEST INFUSAPORT WITH NS @ 125CC/HR. PT IS A & O. DEGROOT DRAINING CLEAR YELLOW. 1ST STEP OVERLAY MATTRESS. RIGTH UROSTOMY. LEFT COLOSTOMY. RIGHT FOOT AND LEFT LEG SORES. NO FUTER NEEDS AT THIS TIME. WILL CONTINUE TO MONITOR
[2016-08-08 11:48] VITALS: BP 93/45
--- NOTE | 2016-08-08 12:49 | NUR ---
Wound care/dressing changes: 1-Left ischial tuberosity: Stage 4 pressure injury. Muscle,tendon and bone exposed with large serous drainage. Edges are pale. No odor 20cm x 20cm x 1.5cm x 3cm from 5-7 oclock 2-Right ischial tuberosity: Stage 4 pressure injury. 9cm x 9cm x 2cm. Wound bed is pale pink/archuleta with large amount of serous drainage. 3-Right lateral ankle: DTI 2cm x 2cm 4-Right lateral foot DTI 2cm x 1cm 5- Right met head Stage 3 pressure injury 2cm x 2cm x 0.3cm 6-Right great toe Stage 1 pressure injury non-blanching 7-Left lateral ankle: Unstageable pressure injury/debrided surgically 2 days ago, but will still require use of Santyl. Removed dressings and cleansed wounds. Left lateral ankle and right met head were dressed with santyl in wound bed. Other wounds on legs/feet were covered with 4x4s and wrapped with kerlix. Left and right ischial tuberosities were dressed with 4x4s saturated with Dakins solution, covered with ABD pads and secured with medipore tape. Pt tolerated well
--- NOTE | 2016-08-08 13:55 | NUR ---
Patient Name: SANTANA PADILLA Admission Status: ER Accout number: [id number] Admission Date: 08-03-2016 : 1990 Admission Diagnosis:URINARY TRACT INFECTION, SITE NOT SPECIFIED Attending: ROBB Current LOS: 5 Anticipated DC Date: Planned Disposition: Nursing Facility [facility] Primary Insurance: [employer] CROSS FEP Discharge Planning Comments: CM MET ITH PATIENT TO ASSESS DISHCARGE PLANNING/NEEDS. PATIENT STATED SHE CONTINUES TO RESIDE AT [facility] AND PLANS TO RETURN THERE ON DISCHARGE. SPOKE WITH CARLOS AT [phone], WHO STATED THE PATIENT IS IN A LONG-TERM BED AND WILL PROBABLY BE RETURNING TO A LONG-TERM BED. DEPENDING ON STAFFING AT THE FACILITY, THE PATIENT MAY NEED AMBULANCE TRANSPORT UPON DISCHARGE. CM WILL FOLLOW. Coke Oven Patcher: Justa Larson Is the patient Alert and Oriented? Yes * How many steps to enter\exit or inside your home? 0 * PCP DR NONI NAIR * Pharmacy [facility] * Preadmission Environment [facility] * Facility Name [facility] * ADLs Partial Dependent * Partial ADLs (Assistance needed) Ambulation Bathing Dressing Eating Medication Management Toileting Transfers * Equipment Catheter Supplies Hospital Bed Ostomy Supplies Shower Chair Wheelchair Wound Supplies * List name and contact numbers for known caregivers / representatives who currently or will assist patient after discharge: BEN LARKIN [phone] * Additional services required to return to the preadmission environment? No * Can the patient safely return to the preadmission environment? Yes * Has this patient been hospitalized within the prior 30 days at any hospital? No
--- NOTE | 2016-08-08 15:26 | NUR ---
Nutrition Follow Up: Pt was unavailable for interview. Chart reviewed. Noted pt does not want eggs on tray. Pt is POD 2 I&D. Pt is eating 25% meal avg on a regular diet. +BM. Meds and labs reviewed. Rec continue current diet. Will put order in for no eggs on tray. Will send Adolph BID to promote wound healing. RD will continue to monitor pt progress.
[2016-08-08 15:38] VITALS: BP 101/53
--- NOTE | 2016-08-08 19:10 | NUR ---
ALERT, AWAKE WATCHING TV. IN CONTACT ISOLATION. DENIES ANY NEEDS. LT CHEST IP WITH NS INFUSING AT 124 ML/HR. DEGROOT INTACT/PATENT. ON 1ST STEP OVERLAY AIR MATTRESS. HAS CALL LIGHT IN REACH.
[2016-08-08 20:00] VITALS: BP 97/54
--- NOTE | 2016-08-08 20:56 | NUR ---
ADMIN PERCOCET FOR C/O "ACHING PAIN ALL OVER" RATED AT 8 ON NUMBER SCALE. REQUESTED SOME JELLO.
[2016-08-09] VITALS: BP 99/55
[2016-08-09 04:00] VITALS: BP 100/57
--- NOTE | 2016-08-09 06:22 | NUR ---
ADMIN SCHED MEDS. DENIES ANY OTHER NEEDS OR DISCOMFORTS.
--- NOTE | 2016-08-09 07:50 | NUR ---
AM ROUNDS - PT APPEARS TO BE SLEEPING WITH EQUAL AND NON LABORED BREATHING. SCDS ARE OFF. NS AT 125CC/HR INFUSING. PT ON CONTACT ISOLATION. WILL CONTINUE TO MONITOR
[2016-08-09 08:00] VITALS: BP 76/36
[2016-08-09 12:00] VITALS: BP 101/51
[2016-08-09 16:00] VITALS: BP 90/49
--- NOTE | 2016-08-09 18:36 | NUR ---
DRESSING CHANGE - COMPLETE. PT TOLERATED WELL. SKIN IN BUTT IS PINK/WHITE AND NON NECROTIC.
[2016-08-09 20:00] VITALS: BP 90/47
--- NOTE | 2016-08-09 22:06 | NUR ---
PT RESTING IN BED. HAS RECIEVED HER HS MED AND REQUESTED PAIN PILL. SHE IS ALERT/ORIENTED AND WATCHING TV. LEFT CHEST WALL IMPLANTED PORT WITH NS @ 125ML/HR INFUSING +ABT ORDERED. DRESSINGS IN PLACE TO LEFT AND RIGHT FOOT AND BUTTOCK. PT ON A 1ST STEP AIR OVERLAY AND HAS SCDS. SHE IS PARAPLEGIC WITH GOOD USE OF HER UPPER EXTEMITIES. SHE DOES SELF CARE TO A COLOSTOMY AND A UROSTOMY, WITH STAFF ASSISTANCE NEEDED. SEE SHIFT ASSESSMENT, MONITOR AND CPOC.
[2016-08-10] VITALS: BP 95/50
--- NOTE | 2016-08-10 00:25 | NUR ---
REQUESTED PAIN MED GIVEN. PT ALSO ITCHING, MEDICATED WITH ORDERED BENADRYL 25MG SIVP. MONITOR AND CPOC.
[2016-08-10 04:00] VITALS: BP 85/46
[2016-08-10 08:00] VITALS: BP 83/42
[2016-08-10 12:00] VITALS: BP 100/46
--- NOTE | 2016-08-10 15:06 | NUR ---
ALERT AND ORIENTED X4. RESTING IN BED. COLOSTOMY CARE COMPLETE INDEPENDENTLY. CONTINUE PAIN MANAGEMENT ORDERED. DENIES ANY NEEDS. CONTINUE PLAN OF CARE AND SAFETY PRECAUTIONS. BED LOCKED AND LOW. CALL LIGHT IN REACH. TWO SIDERAILS UP.
--- NOTE | 2016-08-10 17:43 | NUR ---
ALERT AND ORIENTED X4. SITTING UP IN BED. PAIN MANAGEMENT CONTINUED ORDERED. DENIES SOB. NO CHANGE. PREPARE HAND-OFF REPORT. CONTINUE PLAN OF CARE AND SAFETY PRECAUTIONS.
[2016-08-10 20:00] VITALS: BP 98/47
--- NOTE | 2016-08-10 22:55 | NUR ---
INITIAL ROUNDS COMPELTED AT 1915 HRS. PT REQUESTING BENADRYL. INFORMED NEXT DOSE NOT DUE UNTIL APPROX 2240 HRS. PT STATED OK. ASSESSMENT COMPLETED 1930 HRS. VSS. IV TO L CHEST INFUSAPORT WITH NS AT 125CC/HR. IV PATENT. LUNGS CTA. PT IS A PARAPALEGIC. DRESSING TO BILAT HEELS CLEAN, DRY AND INTACT. DRESSING TO BACKSIDE CLEAN, DRY AND INTACT. LEGS WITH CONTRACTURES. PT ON A 1ST STEP AIR OVERLAY MATTRESS. COLOSTOMY AND R UROSTOMY BAG NOTED. UROSTOMY BAG WITH YELLOW URINE. PM MEDS GIVEN. BENADRYL 25MG SIVP GIVEN AT 2144 HRS. PT CURRENTLY RESTING WITH EYES CLOSED. RESP EVEN AND REULAR. SR UP X2,CALL LIGHT WITHIN REACH.
--- NOTE | 2016-08-10 23:58 | NUR ---
DRESSING CHANGES TO BILAT HEELS AND HIPS COMPLETED. L OUTER HEEL APPROX 2.5CM IN DIAMETER AND 1/4CM DEEP. 2 SMALL AREAS APPROX 1CM AND 1/2 CM IN DIAMETER NOTED TO INNER R HEEL. HEEL WOUNDS CLEANED WITH MICROKLENZ, COVERED WITH SANTYL OINTMENT AND 4X4'S AND WRAPPED IN KERLEX. DRESSING TO BILAT BUTTOCKS DONE USING STERILE TECHNIQUE. R BUTTOCKS [id number] X 5CMAND 1CM DEEP. L BUTTOCKS APPROX 10 CM X 4CM X 2CM DEP. WET TO DRY WIT DAKIN'S SOLUTION, COVERED WTIH 4X4'S AND ABD PADS AND SSECURED WITH MEDIPORE TAPE. PT TOLERATED ACTIVITY WELL. WILL CONTINUE TO MONITOR. SR UP X2, CALL LIGHT WITHIN REACH.
[2016-08-11] VITALS: BP 107/62
[2016-08-11 04:00] VITALS: BP 96/54
--- NOTE | 2016-08-11 04:10 | NUR ---
PT AWAKE, NO DISTRESS NOTED. WILL CONTINUE TO MONITOR.
--- NOTE | 2016-08-11 06:11 | NUR ---
VSS THROUGHOUT NIGHT. PT STATES PERCOCET HELPS CONTROL PAIN. NEEDS MET; WILL CONTINUE TO MONITOR.
--- NOTE | 2016-08-11 09:22 | NUR ---
PT REQ AND REC'D PRN PAIN MEDICATION AND ZOFRAN WITH AM MEDS. WCTM.
[2016-08-11 09:41] VITALS: BP 92/47
[2016-08-11 12:23] VITALS: BP 104/53
[2016-08-11 17:06] VITALS: BP 110/60
--- NOTE | 2016-08-11 20:20 | NUR ---
ALERT/AWAKE TALKING TO VISITORS. ADMIN SCHED MEDS AND PERCOCET PO PER REQUEST FOR C/O PAIN AND ZOFRAN FOR C/O NAUSEA. NO OTHER NEEDS VOICED. LEFT CHEST IP WITH NS INFUSING AT 125/ML/HR. ON 1ST STEP MATTRESS. HAS CALL LIGHT IN REACH.
[2016-08-11 20:33] VITALS: BP 103/54
--- NOTE | 2016-08-11 23:10 | NUR ---
C/O "ITCHING ALL OVER". ADMIN BENADRYL 25MG IV PER REQUEST. NO OTHER NEEDS VOICED.
[2016-08-12 01:51] VITALS: BP 97/51
[2016-08-12 05:52] LABS: BASOPHILS 0.2 % (0-2); EOSINOPHILS 3.1 % (0-7); HEMATOCRIT 36.8 % (36.0-48.0); HEMOGLOBIN 10.8 g/dL (12-16); IMMATURE GRANULOCYTES 2.5 % (0-5); LYMPHOCYTES 43.1 % (15-50); MCH 24.5 pg (26.0-34.0); MCHC 29.3 g/dL (31.0-37.0); MCV 83.6 fL (80.0-100.0); MONOCYTES 4.9 % (2-11); NEUTROPHILS 46.2 % (40-80); PLATELET COUNT 469 10x3/uL (130-400); WBC 9.4 10x3/uL (4.8-10.8)
[2016-08-12 06:13] LABS: CALC OSMOLALITY 279 mosm/kg (275-300); CARBON DIOXIDE 32.9 mmol/L (21.0-32.0); CHLORIDE - SERUM 106 mmol/L (98-107); CREATININE - SERUM 0.8 mg/dL (0.6-1.3); GLUCOSE 78 mg/dL (74-106); POTASSIUM - SERUM 3.9 mmol/L (3.5-5.1); SODIUM 142 mmol/L (136-145); UREA NITROGEN 8 mg/dL (7-18); eGFR NON AFRICAN AMERICAN > 90 mL/min (90-120)
[2016-08-12 06:17] VITALS: BP 93/50
--- NOTE | 2016-08-12 07:00 | NUR ---
PT WAS RECEIVED IN BED AWAKE AND ORIENTED X 4 AT THE BEGINNING OF THIS SHIFT. SHE IS ON CONTACT ISOLATION PRECAUTIONS AND A 1ST STEP MATTRESS. SHE IS NPO SINCE MIDNIGHT FOR PICC LINE PROCEDURE TODAY. LEFT CHEST INFUSAPORT AT THIS TIME. VITAL SIGNS WNL. NO SIGNS OF ANY DISCOMFORT OR DISTRESS AT THIS TIME. CALL LIGHT IS IN REACH.
[2016-08-12 08:00] VITALS: BP 114/64
[2016-08-12 11:58] VITALS: BP 97/51
--- NOTE | 2016-08-12 13:03 | NUR ---
pre-op med given at this time.
[2016-08-12 16:11] VITALS: BP 100/65
--- NOTE | 2016-08-12 18:00 | NUR ---
PT WENT FOR THE PICC LINE PLACEMENT AND CAME BACK WITH A PICC LINE IN HER RIGHT UPPER ARM AND THE LEFT CHEST INFUSAPORT WAS DC'D. NS AT 125ML'S RESTARTED. PT HAS BEEN GIVEN PERCOCET 10MG AT 1021 AND AGAIN AT 1645. BENADRYL 25MG WAS GIVEN AT 1125 PER REQUEST AND ZOFRAN WAS GIVEN AT 1646 PER REQUEST. COLOSTOMY AND UROSTOMY APPLICANCE PATENT AND DRAINING WELL.
--- NOTE | 2016-08-12 20:43 | NUR ---
PT LYING IN BED, AWAKE, ALERT, ORIENTED, CLEARLY AGITATED AND WHINING/WHIMPERING ABOUT BEING IN INCREASED PAIN R/T HER RECENT PORT REMOVAL AND PICC PLACEMENT. PT WAS ALSO C/O THE BANDAGE COVERING THE INCISION SITE FROM PORT REMOVAL CAUSING REDNESS AND DISCOMFORT, SO I CHANGED IT. PTS NEWLY PLACED RIGHT UPPER ARM PICC IS PATENT, AND DRESSING IS CLEAN, DRY AND INTACT. PT IS WANTING DILAUDID FOR BETTER PAIN CONTROL. I DID TEACHING ON PAIN CONTROL R/T INCISIONAL SITE, EXPLAINED THAT WE EXPECT IT TO BE SORE, THE INCISION SITE ITSELF IS ALSO CLEAN, DRY AND INTACT WITH NO OOZING, REDNESS, DRAINING OR BLEEDING. THERE IS OBVIOUS IRRITATION FROM THE ADHESIVE BUT NOT THE WOUND ITSELF. I DID ADMINISTER PTS PRN PERCOCET, IN WHICH SHE STATES DOES NOT HELP AT ALL. PT IS ALSO ASKING FOR HER PRN BENADRYL FOR ITCHING, BUT IT IS TOO EARLY. I OFFERED PT AN ICEPACK TO PLACE ON PORT SITE FOR COMFORT, BUT SHE REFUSED. I DID GIVE PT HER PRN ATIVAN TO HELP HER RELAX. WILL MONITOR CLOSELY. BED LOW, CALL LIGHT IN REACH, SIDE RAILS X 2, HOB 35 DEGREES, BED ALARM ON.
[2016-08-12 21:21] VITALS: BP 98/63
[2016-08-13 01:26] VITALS: BP 94/51
--- NOTE | 2016-08-13 02:34 | NUR ---
PT HAS BEEN RESTING COMFORTABLY, DENIES ANY NEEDS. CONTINUE TO MONITOR CLOSELY. BED LOW, CALL LIGHT IN REACH, SIDE RAILS X 2, HOB 35 DEGREES.
[2016-08-13 04:59] VITALS: BP 94/43
--- NOTE | 2016-08-13 05:56 | NUR ---
PT STATES THE PRN PERCOCET HAS NOT HELPED WITH INCISIONAL PAIN R/T HAVING HER PORT REMOVED AND IS REQUESTING DILAUDID. WILL DISCUSS WITH DAYSHIFT NURSE. PT DENIES ANY OTHER NEEDS. PT HAS BEEN TEARFUL WHEN IN PAIN. CONTINUE TO MONITOR CLOSELY. BED LOW, CALL LIGHT IN REACH, SIDE RAILS X 2, HOB 30 DEGREES.
[2016-08-13 06:38] LABS: ALBUMIN 1.9 g/dL (3.4-5.0); ALKALINE PHOSPHATASE 140 U/L (46-116); ALT (SGPT) 20 U/L (10-68); BILIRUBIN - TOTAL 0.15 mg/dL (0.2-1.3); CALC OSMOLALITY 274 mosm/kg (275-300); CALCIUM 8.2 mg/dL (8.5-10.1); CARBON DIOXIDE 30.8 mmol/L (21.0-32.0); CHLORIDE - SERUM 103 mmol/L (98-107); CREATININE - SERUM 0.7 mg/dL (0.6-1.3); POTASSIUM - SERUM 4.3 mmol/L (3.5-5.1); SODIUM 138 mmol/L (136-145); UREA NITROGEN 8 mg/dL (7-18); eGFR NON AFRICAN AMERICAN > 90 mL/min (90-120)
[2016-08-13 06:40] LABS: GLUCOSE 119 mg/dL (74-106)
[2016-08-13 08:00] VITALS: BP 95/55
--- NOTE | 2016-08-13 08:13 | NUR ---
AM ROUNDING- RECEIVED REPORT FROM ACID CONDITIONING WORKER NURSE ALEXEI LI. PT IS CURRENTLY SITTING UP IN BED WITH EYES OPEN RESTING. IN CONTACT ISOLATION FOR MULTIPLE PATHOGENS (PER REPORT). RIGHT UPPER ARM PICC SEEN WITH NS RUNNING AT 125CC. ON ROOM AIR. NO MONITOR. COLOSTOMY SEEN TO LEFT SIDE OF ABDOMEN. UROSTOMY SEEN TO RIGHT SIDE OF ABDOMEN. ON FIRST STEP OVERLAY MATTRESS. PER REPORT PT REFUSES SCDS. NO NEED AT CURRENT TIME. WILL CONTINUE TO MONITOR AND CONTINUE WITH PLAN OF CARE.
--- NOTE | 2016-08-13 09:40 | NUR ---
1831- PAGED DR. NAIR TO INFORM HIM THAT PTS PERCOCET FELL OFF THE EMAR AND THAT PT IS C/O PAIN NOW AND IS NEEDING SOMETHING FOR PAIN. WILL AWAIT CALLBACK AND CONTINUE TO MONITOR. 9698- DR. NAIR CALLED BACK. INFORMED HIM THAT PTS PERCOCET FELL OFF THE EMAR AND PT IS WANTING SOMETHING FOR PAIN. DR. NAIR STATES TO RESTART PEROCET. WILL DO ORDERED AND CONTINUE TO MONITOR.
[2016-08-13 11:57] VITALS: BP 99/56
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
--- NOTE | 2016-08-13 15:34 | NUR ---
PAGED DR. COY REGARDING PT WANTING SOMETHING STRONGER FOR PAIN. PT STATES DR. COY TOLD HER THAT HE WOULD GET HER SET UP WITH A "PAIN PUMP" WHEN DR. COY MADE ROUNDS ON PT THIS AM. PT STATES SHE DID NOT HAVE TO HAVE A PUMP BUT WOULD LIKE SOMETHING STRONGER FOR PAIN SUCH DILAUDID THAT THEY GAVE HER WHEN SHE FIRST CAME IN AND IT HELPED. RECEIVED CALLBACK FROM DR. CHOI OFFICE. SPOKE WITH DR. ANNELIESE MCKEON RIGHT BESIDE MIKE. RELAYED THIS INFORMATION TO MIKE WHO THEN INFORMED DR. COY. NEW ORDERS RECEIVED (DILAUDID 1MG Q4H). WILL PUT IN ORDERS AND CONTINUE TO MONITOR.
[2016-08-13 15:44] VITALS: BP 110/72
--- NOTE | 2016-08-13 18:18 | NUR ---
PT IS CURRENTLY LAYING IN BED (ON FIRST STEP OVERLAY MATTRESS) ON BACK WITH EYES OPEN RESTING. PT JUST RECEIVED DILAUDID AND BENADRYL ( ORDERED) FOR PAIN AND ITCHING. NO NEED AT CURRENT TIME. WILL CONTINUE TO MONITOR.
[2016-08-13 19:00] VITALS: BP 84/47
--- NOTE | 2016-08-13 20:51 | NUR ---
PT LYING IN BED IN A STUPOR INITIALLY, FINALLY ROUSABLE AND CONVERSIVE. PT DENIES ANY ACUTE NEEDS. CONTINUE TO MONITOR CLOSELY. BED LOW, CALL LIGHT IN REACH, SIDE RAILS X 2, HOB 15 DEGREES.
[2016-08-14] VITALS: BP 97/56
[2016-08-14 04:00] VITALS: BP 97/59
--- NOTE | 2016-08-14 05:17 | NUR ---
PT AWAKE, ALERT, ORIENTED, DENIES ANY NEEDS AT THIS TIME. 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 PT STATED THAT SHE WANTS TO GET INTO SOCIAL WORK SO THAT SHE CAN WORK WITH [employer]/DEMENTIA PTS. PT STATES SHE DOES HAVE FPC GOALS THAT SHE WILL BEGIN WORKING TOWARDS AFTER HER WOUNDS HEAL. CONTINUE TO MONITOR CLOSELY. BED LOW, CALL LIGHT IN REACH, SIDE RAILS X 2, HOB 20 DEGREES.
--- NOTE | 2016-08-14 08:06 | NUR ---
ASSESSMENT DONE. DENIES NEEDS.
[2016-08-14 08:22] VITALS: BP 100/57
--- NOTE | 2016-08-14 09:06 | NUR ---
RESTS IN ISOLATION ROOM. CALL LIGHT IN REACH. WILL MONITOR NEEDS.
--- NOTE | 2016-08-14 10:44 | NUR ---
Nutrition follow-up: Diet: Regular PO intake 75-100% of meals Preferences being honored Labs reviewed Wt: 120# Pt in isolation for multiple pathogens. Will continue to provide food choices with selective menus and honor food peferences. RDN following.
[2016-08-14 12:26] VITALS: BP 107/62
[2016-08-14 16:30] VITALS: BP 97/57
--- NOTE | 2016-08-14 17:52 | NUR ---
WITHOUT CHANGES OR DISTRESS NOTED AT THIS TIME. DENIES NEEDS.
[2016-08-14 19:00] VITALS: BP 100/63
--- NOTE | 2016-08-14 22:48 | NUR ---
PT AWAKE, ALERT, ORIENTED, DENIES ANY ACUTE NEEDS. CONTINUE TO MONITOR CLOSELY. BED LOW, CALL LIGHT IN REACH, SIDE RAILS X 2, HOB 20 DEGREES.
[2016-08-15] VITALS: BP 88/56
--- NOTE | 2016-08-15 02:32 | NUR ---
PT AWAKE, ALERT, ORIENTED, CALLING HOURLY FOR MEDS OR SNACKS. PT DENIES ANY ACUTE NEEDS AT THIS TIME AND STATES SHE IS GOING TO TRY AND SLEEP. CONTINUE TO MONITOR CLOSELY. BED LOW, CALL LIGHT IN REACH, SIDE RAILS X 2, HOB 30 DEGREES.
[2016-08-15 04:00] VITALS: BP 88/50
--- NOTE | 2016-08-15 07:39 | NUR ---
ASSESSMENT DONE. DENIES NEEDS.
[2016-08-15 07:56] VITALS: BP 88/46
--- NOTE | 2016-08-15 09:21 | NUR ---
RESTS IN ISOLATION ROOM. IV PATENT. IRIS NEEDS AT THIS TIME. WILL MONITOR.
[2016-08-15 12:44] VITALS: BP 88/44
--- NOTE | 2016-08-15 14:19 | NUR ---
Patient Name: SANTANA PADILLA Encounter No: [id number] : 1990 Primary Insurance: [employer] CROSS FEP Anticipated DC Date: 08-15-2016 Planned Disposition: Nursing Facility [facility] Cert External [facility] DCP follow-up note: CM SPOKE TO DR. ALBERTO WHO INFORMED CM OF PT'S IV MEDICATION NEED FOR DISCHARGE. DR. NAIR HAS NOT YET DISCHARGED PT. CM CALLED [facility], , PROVIDED INFORMATION RELATED TO IV AND ORAL ANTIBIOTIC NEED FOR DISCHARGE BACK TO NURSING FACILITY. CM FAXED UPDATE TO [facility] AT [phone]. YASMIN WILL EVALUATE PT'S MEDICATION NEEDS AND LET CM KNOW IF [facility] CAN PROVIDE THE IV MEDICATION Q8 NEEDED FOR PT'S RETURN. Zachary Brown, CASE MANAGEMENT Appended by Zachary Brown on 08/15/2016 14:10: CM RECEIVED CALL FROM [facility] OF [facility], THEY CAN ACCEPT PT BACK TODAY AND CAN PROVIDE ANTIBIOTICS FOR DISCHARGE TODAY. PT WILL RETURN TO [facility] INSURANCE WILL NOT PAY FOR SKILLED CARE. CM PAGED DR. NAIR WHO NOTIFIED CM HE WOULD DISCHARGE PT SHORTLY. CM NOTIFIED PT WHO WAS IN AGREEMENT WITH DISCHARGE PLAN, DENIES NEED OF CM ASSISTANCE TO CALL FAMILY OR FRIENDS. FOR DISCHARGE, CM TO FAX DISCHARGE INFORMATION TO [facility], . NURSE REPORT TO BE CALLED TO [facility], . [facility] TO PROVIDE VAN TRANSPORTATION IF AVAILABLE. ZACHARY BROWN, CASE MANAGEMENT
[2016-08-15] MEDS ORDERED: MAXIPIME 2 GM/D52 G1 IV (14:47)
[2016-08-15] MEDS ORDERED: DIFLUCAN100 MG PO (14:48)
[2016-08-15] MEDS ORDERED: FLORAJEN3 CAPS460 MG PO (14:50)
[2016-08-15] MEDS ORDERED: NYSTATIN1 PWD TOPICAL (14:51)
--- NOTE | 2016-08-15 15:50 | NUR ---
REPORT CALLED TO [place] AT [facility]
--- NOTE | 2016-08-15 15:56 | NUR ---
DC TO [facility] PER [facility]
== END 2016-08-15 15:56 | DRG 492 ==
LOC: D.ER 03:59 → D.M2 05:08
PROVIDERS: Anesthesiology; Emergency Medicine; Student in an Organized Health Care Education/Training Program; Surgery; ADMIT Family Medicine
PROC: 0QBK0ZZ Excision of Left Fibula, Open Approach (ICD-10-PCS; 2016-08-06)
PROC: 0QB30ZZ Excision of Left Pelvic Bone, Open Approach (ICD-10-PCS; 2016-08-06)
PROC: 0QB20ZZ Excision of Right Pelvic Bone, Open Approach (ICD-10-PCS; 2016-08-06)
PROC: 0QB10ZZ Excision of Sacrum, Open Approach (ICD-10-PCS; principal; 2016-08-06 13:00)
PROC: 05HD33Z Insertion of Infusion Device into Right Cephalic Vein, Percutaneous Approach (ICD-10-PCS; 2016-08-12)
PROC: B54MZZA Ultrasonography of Right Upper Extremity Veins, Guidance (ICD-10-PCS; 2016-08-12)
PROC: 0JPTXXZ Removal of Tunneled Vascular Access Device from Trunk Subcutaneous Tissue and Fascia, External Approach (ICD-10-PCS; 2016-08-12)
PROC: B51M1ZZ Fluoroscopy of Right Upper Extremity Veins using Low Osmolar Contrast (ICD-10-PCS; 2016-08-12)
DX: M86.8X7 Other osteomyelitis, ankle and foot (principal); L89.154 Pressure ulcer of sacral region, stage 4; N39.0 Urinary tract infection, site not specified; G82.20 Paraplegia, unspecified; T80.218A Other infection due to central venous catheter, initial encounter; M86.8X0 Other osteomyelitis, multiple sites; Z91.14 Patient's other noncompliance with medication regimen; F17.200 Nicotine dependence, unspecified, uncomplicated; G40.909 Epilepsy, unspecified, not intractable, without status epilepticus; D64.9 Anemia, unspecified; K21.9 Gastro-esophageal reflux disease without esophagitis; D63.8 Anemia in other chronic diseases classified elsewhere; F41.9 Anxiety disorder, unspecified; F32.9 Major depressive disorder, single episode, unspecified; B37.9 Candidiasis, unspecified; B96.20 Unspecified Escherichia coli [E. coli] as the cause of diseases classified elsewhere; B96.5 Pseudomonas (aeruginosa) (mallei) (pseudomallei) as the cause of diseases classified elsewhere

== ENCOUNTER 2016-08-16 08:26 | Emergency (ER) | payer BC, MEDICAID ==
[2016-08-06 13:34] VITALS: BMI 18.8
[~2016-08-16 08:26] MED LIST changes: +DIFLUCAN100 MG PO; +FLORAJEN3 CAPS460 MG PO; +MAXIPIME 2 GM/D52 G1 IV; +NYSTATIN1 PWD TOPICAL
[2016-08-16 10:03] LABS: BASOPHILS 0.5 % (0-2); EOSINOPHILS 0.4 % (0-7); HEMATOCRIT 39.3 % (36.0-48.0); HEMOGLOBIN 11.8 g/dL (12-16); IMMATURE GRANULOCYTES 0.5 % (0-5); LYMPHOCYTES 22.9 % (15-50); MCV 83.3 fL (80.0-100.0); MEAN PLATELET VOLUME 8.9 fL (7.4-10.4); MONOCYTES 4.7 % (2-11); PLATELET COUNT 428 10x3/uL (130-400); RBC 4.72 10x6/uL (4.00-5.40); RDW 20.7 % (11.5-14.5); WBC 11.5 10x3/uL (4.8-10.8)
[2016-08-16 10:09] LABS: APPEARANCE CLEAR (CLEAR); BILIRUBIN NEGATIVE (NEGATIVE); COLOR YELLOW (YELLOW); GLUCOSE NEGATIVE (NEGATIVE); HCG URINE NEGATIVE (NEGATIVE); KETONE NEGATIVE (NEGATIVE); LEUKOCYTE ESTERASE TRACE (NEGATIVE); NITRITE NEGATIVE (NEGATIVE); PROTEIN NEGATIVE (NEGATIVE); UROBILINOGEN NORMAL (NORMAL)
[2016-08-16 10:11] LABS: BACTERIA FEW /hpf (NONE SEEN); EPITHELIAL CELLS 0-5 /hpf (0-5); MUCUS <1+ /lpf (NONE SEEN)
[2016-08-16 10:31] LABS: ALBUMIN 2.2 g/dL (3.4-5.0); ALKALINE PHOSPHATASE 184 U/L (46-116); ALT (SGPT) 44 U/L (10-68); BILIRUBIN - TOTAL 0.53 mg/dL (0.2-1.3); CALC OSMOLALITY 279 mosm/kg (275-300); CALCIUM 8.8 mg/dL (8.5-10.1); CARBON DIOXIDE 31.4 mmol/L (21.0-32.0); CHLORIDE - SERUM 100 mmol/L (98-107); CREATININE - SERUM 0.7 mg/dL (0.6-1.3); GLUCOSE 122 mg/dL (74-106); POTASSIUM - SERUM 3.7 mmol/L (3.5-5.1); PROTEIN - SERUM 7.4 g/dL (6.4-8.2); SODIUM 141 mmol/L (136-145); UREA NITROGEN 8 mg/dL (7-18); eGFR NON AFRICAN AMERICAN > 90 mL/min (90-120)
== END 2016-08-16 13:36 | disposition home or self-care (01) ==
LOC: D.ER 08:26
PROVIDERS: Emergency Medicine
DX: R11.10 Vomiting, unspecified (principal); Z93.3 Colostomy status

== ENCOUNTER 2016-08-18 12:28 | Observation (INO) | payer BC, MEDICAID ==
[~2016-08-18] VITALS: Ht 170.2 cm; Wt 57.2 kg
--- NOTE | ~2016-08-18 | OP ---
PATIENT NAME: SANTANA PADILLA MEDICAL RECORD: [id number] :89 LOCATION:D.MS [id number] ADMISSION DATE:08/18/16 SURGEON: KEYANA COY MD DATE OF OPERATION: 08/19/2016 PREOPERATIVE DIAGNOSES: 1. Decubitus ulcers. 2. Need of IV antibiotics with nonfunctioning midline. 3. Inability to place a PICC catheter in the upper extremities. POSTOPERATIVE DIAGNOSES: 1. Decubitus ulcers. 2. Need of IV antibiotics with nonfunctioning midline. 3. Inability to place a PICC catheter in the upper extremities. PROCEDURE: 1. Placement of right infraclavicular PowerPort under fluoroscopic guidance. 2. Immediate surgeon fluoroscopic interpretation of the images. SURGEON: Keyana Coy MD ELECTRONICS SPECIALIST: None. BLOOD LOSS: Minimal. ANESTHESIA: General. COMPLICATIONS: None. The surgeon interpreted the radiographic images. No radiologist was present for this procedure. Static images were obtained and are kept in the PACS system. OPERATIVE COURSE: The patient was conveyed to the operating room electively on 08/19/2016. General anesthesia was induced by the anesthesia staff. The right upper chest was sterilely prepped and draped. A transverse incision was accomplished inferior to the right clavicle. Sharp dissection was carried down to the pectoralis fascia. A subcutaneous pocket was created in a caudad direction. I excised some of the subcutaneous adipose tissue from between pocket and the skin to allow for easier access. I dissected in the deltopectoral groove. There was not a cephalic vein of a size that could accommodate the PowerPort catheter. Therefore, through the pocket, I percutaneously accessed the right subclavian vein in an antegrade fashion. This was visualized under fluoroscopy. A dilator sheath was then advanced. The dilator and wire were removed. Through the sheath, the PowerPort catheter was advanced. It was advanced to the cavoatrial junction. The catheter was shortened. It was attached to the PowerPort. The locking device was firmly engaged. The PowerPort was then sutured into a 3-point fixation to the underlying pectoralis fascia with 3-0 Prolenes to prevent the port from flipping. I irrigated in the port pocket with normal saline. The subdermis was approximated with interrupted 3-0 Vicryls. The skin was approximated with a running intracuticular 4-0 Vicryl. Fluoroscopic image was obtained over the chest that revealed that there was no radiographic evidence of complication. There is no apparent kinking or twisting of the catheter. The tip of the catheter was at the cavoatrial junction. OPERATIVE REPORT [id number] SANTANA PADILLA I then percutaneously accessed the port and left the access. It flushed easily and aspirated dark, nonpulsatile blood. A sterile dressing was applied. The patient was then extubated and conveyed to post-anesthesia care unit where she was in stable condition. TRANSINT:[id number] Voice Confirmation ID: [id number] DOCUMENT ID: [id number] KEYANA COY MD CC: Eve ALBERTO and NONI NAIR MD [id number] DICTATION DATE: 08/19/16 1436 TRACK SUBWAY REPAIR SUPERVISOR: 08/19/16 8677 DIS IN 08/19/16 [facility] [address] [place] [address]
--- NOTE | 2016-08-18 16:22 | NUR ---
RECIEVED TO ROOM 2236 FROM [facility] NPO AFTER MN FOR POWER PORT PLACEMENT TOMMORROW PT IS INCOMPLETE PARAPLEGIC FROM [facility] HAS DRESSING TO BUTTOCKS WITH FOUL ODOR NOTED. PT AWAKE AND ALERT ORIENTED X 3 LUNGS CLEAR BILATERALLY HAS BSA X 4 QUADS ABDOMEN FLAT AND NON TENDER DRESSING TO BUTTOCKS SATURATED WILL CHANGE PER ORDER.
--- NOTE | 2016-08-18 19:35 | NUR ---
RECIEVED SHIFT REPORT. PT IS LYING IN BED. ALERT AND ORIENTED AND ABLE TO VERBALIZE NEEDS. PT HAS NO IV ACCESS AT THIS TIME. PT DENIES ANY PAIN AT THIS TIME. PT HAS A COLOSTOMY AND UROSTOMY THAT SHE STATES SHE CARES FOR HERSELF. DRESSING TO BUTTOCKS C/D/I. PT REQUIRES MINIMAL ASSISTANCE TURNING IN BED FOR COMFORT AND SKIN CARE. NO NEEDS ARE VERBALIZED AT THIS TIME. WILL CONTINUE TO MONITOR. SIDE RAILS ARE UP X 2. BED IS IN LOWEST POSITION. CALL LIGHT IS WITHIN REACH.
--- NOTE | 2016-08-18 20:15 | NUR ---
ADMIT ASSESSMENT COMPLETED AT THIS TIME. PT STATUS REMAINS UNCHANGED AT THIS TIME. NO NEEDS ARE VOICED. WILL MONITOR. SIDE RAILS X 2. BED LOW. CALL LIGHT IN REACH.
[2016-08-19] VITALS: BP 88/44
[2016-08-19 04:00] VITALS: BP 81/39
[2016-08-19 05:15] VITALS: BP 86/45; BMI 19.7
--- NOTE | 2016-08-19 08:00 | NUR ---
pt assessment complete awake and alert paraplegic urostomy and colostomy noted will monitor.
--- NOTE | 2016-08-19 08:27 | NUR ---
IV ACCESS-22 GAUGE INSERTED IN RIGHT HAND, THUMB AREA. JENNY NAGEL RN
[2016-08-19 08:48] VITALS: BP 94/50
--- NOTE | 2016-08-19 12:00 | NUR ---
WITHOUT DISTRESS AT PRESENT.LIGHT IN REACH
[2016-08-19 12:35] VITALS: BP 93/59
[2016-08-19 13:45] VITALS: Ht 170.2 cm; Wt 57.2 kg
--- NOTE | 2016-08-19 13:58 | NUR ---
PATIENT IS A PARAPALEGIC HAS COLOSTOMY BAG AND URINE DRIAN BAG ALSO, SAFETY MEASURES TAKEN ON POSITION ALL AREAS PADDED AND SECURED, HADLEY.
--- NOTE | 2016-08-19 14:07 | NUR ---
PATIENT ALSO LEGS ARE VERY CONTORATED, AND ATROPHY NOTED WELL, DRESSING NOTED ON HIPS SOME BRUISING NOTED ON ARMS AND LEGS, SCARS NOTED ON RIGHT CHEST FROM PREVIOUS PORT AND ALSO RIGHT ARM PREVIOUS PICC LINE, HADLEY.
[2016-08-19 15:14] VITALS: BP 90/48
--- NOTE | 2016-08-19 16:00 | NUR ---
RECIEVED BACK TO ROOM FROM RECOVERY ROOM VIA BED AWAKE AND ALERT PAIN CONTROLLED. POWER PROT NOTED TO RIGHT UPPER CHEST ACESSED ONE INCH WHITAKER NEEDLE PRESENT. SURGICAL DRESSING INTACT.
[2016-08-19] MEDS ORDERED: MAXIPIME1 GM IV (17:31)
--- NOTE | 2016-08-19 18:00 | NUR ---
STERLE DRESSING APPLIED PER STERILE TECNIQUE WITH BIOPATCH IN PLACE PT OT BE DISCHARGED TO [facility] VIA AMBULANCE.
--- NOTE | 2016-08-19 22:23 | NUR ---
CALLED [facility] AT THIS TIME PER PT REQUEST. RECIEVED IN REPORT THAT THEY WERE SUPPOSED TO BE HER FOR PT BETWEEN [phone]. [facility] STATES THEY HAD NO RECORD OF PT TO BE PICKED UP. INFORMATION GIVEN AND WAS INFORMED THAT THEY WOULD HAVE AN AMBULANCE TO PICK PT UP IN ABOUT 15-20 MINUTES. WILL RELAY THIS INFORMATION TO PT.
--- NOTE | 2016-08-19 23:00 | NUR ---
PT TAKEN VIA AMBULANCE AT THIS TIME TO [facility].
== END 2016-08-19 23:00 ==
LOC: D.OPS 12:28 → D.MS 16:00 → OBSVTIME 16:00 → D.MS 16:00
PROVIDERS: ADMIT Family Medicine
DX: T82.868A Thrombosis due to vascular prosthetic devices, implants and grafts, initial encounter (principal); Y83.8 Other surgical procedures as the cause of abnormal reaction of the patient, or of later complication, without mention of misadventure at the time of the procedure; L89.894 Pressure ulcer of other site, stage 4; G82.20 Paraplegia, unspecified; Z86.73 Personal history of transient ischemic attack (TIA), and cerebral infarction without residual deficits; F32.9 Major depressive disorder, single episode, unspecified; F41.9 Anxiety disorder, unspecified; K21.9 Gastro-esophageal reflux disease without esophagitis; G40.909 Epilepsy, unspecified, not intractable, without status epilepticus; D64.9 Anemia, unspecified; Z91.19 Patient's noncompliance with other medical treatment and regimen; M86.172 Other acute osteomyelitis, left ankle and foot; M86.151 Other acute osteomyelitis, right femur; M46.28 Osteomyelitis of vertebra, sacral and sacrococcygeal region; B37.9 Candidiasis, unspecified; B96.5 Pseudomonas (aeruginosa) (mallei) (pseudomallei) as the cause of diseases classified elsewhere; B96.4 Proteus (mirabilis) (morganii) as the cause of diseases classified elsewhere

== ENCOUNTER 2016-09-11 04:07 | Emergency (ER) | payer BC, MEDICAID ==
[2016-08-19 13:45] VITALS: BMI 19.7
[~2016-09-11 04:07] MED LIST changes: +MAXIPIME1 GM IV
== END 2016-09-11 06:30 | disposition home or self-care (01) ==
LOC: D.ER 04:07
DX: M54.9 Dorsalgia, unspecified (principal); W06.XXXA Fall from bed, initial encounter; Y93.89 Activity, other specified; Y92.89 Other specified places as the place of occurrence of the external cause

== ENCOUNTER 2016-10-13 07:03 | Emergency (ER) | payer BC, MEDICAID ==
[2016-08-19 13:45] VITALS: BMI 19.7
[2016-10-13 08:58] LABS: BASOPHILS 0.3 % (0-2); EOSINOPHILS 3.5 % (0-7); HEMATOCRIT 38.1 % (36.0-48.0); HEMOGLOBIN 11.8 g/dL (12-16); IMMATURE GRANULOCYTES 0.4 % (0-5); LYMPHOCYTES 44.1 % (15-50); MCV 83.9 fL (80.0-100.0); MEAN PLATELET VOLUME 8.7 fL (7.4-10.4); MONOCYTES 6.6 % (2-11); NEUTROPHILS 45.1 % (40-80); PLATELET COUNT 356 10x3/uL (130-400); RBC 4.54 10x6/uL (4.00-5.40); RDW 17.5 % (11.5-14.5); WBC 7.9 10x3/uL (4.8-10.8)
[2016-10-13 08:59] LABS: HCG URINE NEGATIVE (NEGATIVE)
[2016-10-13 09:16] LABS: APPEARANCE CLOUDY (CLEAR); BACTERIA MODERATE /hpf (NONE SEEN); BILIRUBIN NEGATIVE (NEGATIVE); COLOR YELLOW (YELLOW); EPITHELIAL CELLS 0-5 /hpf (0-5); GLUCOSE NEGATIVE (NEGATIVE); KETONE NEGATIVE (NEGATIVE); LEUKOCYTE ESTERASE 2+ (NEGATIVE); NITRITE POSITIVE (NEGATIVE); PROTEIN TRACE mg/dL (NEGATIVE); SPECIFIC GRAVITY 1.005 (1.005-1.020); UROBILINOGEN NORMAL (NORMAL)
[2016-10-13 09:17] LABS: AMORPHOUS SEDIMENT >1+ /lpf (NONE SEEN); MUCUS <1+ /lpf (NONE SEEN)
[2016-10-13 09:23] LABS: ALKALINE PHOSPHATASE 181 U/L (46-116); ALT (SGPT) 49 U/L (10-68); BILIRUBIN - TOTAL 0.34 mg/dL (0.2-1.3); CALC OSMOLALITY 274 mosm/kg (275-300); CALCIUM 8.5 mg/dL (8.5-10.1); CARBON DIOXIDE 27.6 mmol/L (21.0-32.0); CHLORIDE - SERUM 102 mmol/L (98-107); CREATININE - SERUM 0.7 mg/dL (0.6-1.3); GLUCOSE 95 mg/dL (74-106); MAGNESIUM - SERUM 2.4 mg/dL (1.8-2.4); PROTEIN - SERUM 7.9 g/dL (6.4-8.2); SODIUM 138 mmol/L (136-145); UREA NITROGEN 10 mg/dL (7-18); eGFR NON AFRICAN AMERICAN > 90 mL/min (90-120)
== END 2016-10-13 10:33 | disposition home or self-care (01) ==
LOC: D.ER 07:03
PROVIDERS: Emergency Medicine
DX: R10.9 Unspecified abdominal pain (principal); G82.20 Paraplegia, unspecified; N39.0 Urinary tract infection, site not specified; D64.9 Anemia, unspecified

== ENCOUNTER 2017-01-04 20:58 | Inpatient (IN) | payer BC, MEDICAID ==
[~2017-01-04] VITALS: Ht 170.2 cm; Wt 76.4 kg
[2017-01-04 21:34] LABS: APPEARANCE CLOUDY (CLEAR); COLOR YELLOW (YELLOW); GLUCOSE NEGATIVE (NEGATIVE); KETONE NEGATIVE (NEGATIVE); NITRITE NEGATIVE (NEGATIVE); PROTEIN 1+ mg/dL (NEGATIVE); UROBILINOGEN NORMAL (NORMAL)
[2017-01-04 21:35] LABS: BILIRUBIN 2+ (NEGATIVE)
[2017-01-04 21:37] LABS: BACTERIA MANY /hpf (NONE SEEN); EPITHELIAL CELLS 0-5 /hpf (0-5); WHITE CELLS - URINE >50 /hpf (0-5)
[2017-01-04 21:38] LABS: MUCUS >1+ /lpf (NONE SEEN)
[2017-01-04 22:15] LABS: BASOPHILS 0.1 % (0-2); EOSINOPHILS 0.2 % (0-7); HEMATOCRIT 36.8 % (36.0-48.0); HEMOGLOBIN 11.4 g/dL (12-16); IMMATURE GRANULOCYTES 0.3 % (0-5); LYMPHOCYTES 13.7 % (15-50); MCH 24.9 pg (26.0-34.0); MCV 80.5 fL (80.0-100.0); MEAN PLATELET VOLUME 8.6 fL (7.4-10.4); NEUTROPHILS 80.7 % (40-80); PLATELET COUNT 424 10x3/uL (130-400); RBC 4.57 10x6/uL (4.00-5.40); RDW 16.4 % (11.5-14.5); WBC 9.8 10x3/uL (4.8-10.8)
[2017-01-04 22:26] LABS: ALBUMIN 2.1 g/dL (3.4-5.0); ALKALINE PHOSPHATASE 159 U/L (46-116); ALT (SGPT) 25 U/L (10-68); BILIRUBIN - TOTAL 0.33 mg/dL (0.2-1.3); CALC OSMOLALITY 273 mosm/kg (275-300); CALCIUM 8.9 mg/dL (8.5-10.1); CARBON DIOXIDE 28.6 mmol/L (21.0-32.0); CHLORIDE - SERUM 101 mmol/L (98-107); CREATININE - SERUM 0.8 mg/dL (0.6-1.3); GLUCOSE 124 mg/dL (74-106); POTASSIUM - SERUM 3.5 mmol/L (3.5-5.1); PROTEIN - SERUM 8.1 g/dL (6.4-8.2); SODIUM 137 mmol/L (136-145); UREA NITROGEN 11 mg/dL (7-18); eGFR NON AFRICAN AMERICAN > 90 mL/min (90-120)
[2017-01-05] VITALS: BP 122/50
[2017-01-05 02:18] VITALS: BP 122/50; BMI 22.1
[2017-01-05] MEDS ORDERED: BYSTOLIC2.5 MG PO (02:34)
[2017-01-05] MEDS ORDERED: PERCOCET 10/3251 TA1 PO (02:37)
[2017-01-05] MEDS ORDERED: TRINESSA1 TAB PO (02:41)
[2017-01-05] MEDS ORDERED: VALIUM 2 MG TAB2 MG PO (02:42)
[2017-01-05] MEDS ORDERED: FUROSEMIDE20 MG PO (02:44)
[2017-01-05] MEDS ORDERED: REQUIP0.5 MG PO (02:46)
[2017-01-05] MEDS ORDERED: MULTIPLE VITAMI1 TA1 PO (02:47)
[2017-01-05] MEDS ORDERED: DITROPAN X10 MG/BOTT PO (02:48)
[2017-01-05] MEDS ORDERED: K-TAB10 MEQ PO (02:50)
--- NOTE | 2017-01-05 02:54 | NUR ---
PT ARRIVED VIA STRETCHER FROM ER AT 0055 HRS. NO DISTRSS NOTED. DENIED AY DISCOMFORT. CHICKEN NOODLE SOUP GIVEN PER REQUEST. IV TO R INFUSAPORT SL. SCABS TO 1ST AND 2ND TOES OF R FOOT NOTED. PT IS A PRAAPALEGIC. FOOT DROP NOTED. SORE TO L OUTER ANKLE 2CM X3CM AND SORE TO R INNER ANKLE 1CM X 1.5CM NOTED. COVERED WITH 4X4'S AND KERLIX. L HIP DECUBITUS 12CM X 6 CM X 3CM AND R HIP DECUBITUS 10CM X 2CM X 4CM NOT. WET TO DRY DRESSINGS DONE WITH STERILE SALINE. COVEREED WITH ABD PADS AND SECURED WITH HYPAFIX TAPE. PT TOLERATED WELL. DEGROOT DRAINAGE BAD ATTACHED TO UROSTOMY. L COLOSTOMY NOTED. ADMISSION ASSESSMENT,HISTORY AND HOME MED LIST COMPLETED. PT HAS C/O PAIN AND NAUSEA. REFUSES ORDER ZOFRAN AND NORCO. STATES ZOFRAN DOES NOT WORK AND WON'T TAKE NORCO DUE TO PREVIOUS ADDICTION PROBLEM. PT WANTS IV DILAUDID AND IM PHENERGAN. DR KOREY STACY.
--- NOTE | 2017-01-05 03:22 | NUR ---
DR NAIR RETURNS PAGE. INFORMED OF PT'S COMPLAINT. NEW ORDERS RECEIVED AND NOTED.
[2017-01-05 04:00] VITALS: BP 110/41
--- NOTE | 2017-01-05 04:45 | NUR ---
PT STAESPAINA ND NAUSEA LEVEL NOW 4/10. REQUESTING APPLE JUICE. WILL CONTINUE TO MONITOR.
--- NOTE | 2017-01-05 07:15 | NUR ---
RECIEVED REPORT ONPATIENT, PATIENT IS ALERT AND ORIENTED AT THIS TIME. PATIENT HAS A R CHEST IP INFUSING WITH A ZOFRAN DRIP AT 4.7ML/HR. PATIENT COMPLAINS OF BACK PAIN 5/10, WILL GIVE DILUADID. PATIENT DENIES ANY OTHER NEEDS AT THIS TIME. BED LOW AND LOCKED. CALL LIGHT IN REACH. CPOC
[2017-01-05 08:00] VITALS: BP 106/52
--- NOTE | 2017-01-05 09:15 | NUR ---
MORNING MEDICATIONS GIVEN WITH NO ISSUES. PATIENT DENIES ANY NEEDS. CPOC
--- NOTE | 2017-01-05 11:56 | NUR ---
1MG OF DILUADID GIVEN FOR PAIN 7/10 IN BACK. WILL MONITOR
--- NOTE | 2017-01-05 12:25 | NUR ---
PATIENT SITTING UP IN BED EATING LUNCH . DENIES ANY NEEDS. CPOC
[2017-01-05 13:39] VITALS: Ht 170.2 cm; Wt 76.4 kg
--- NOTE | 2017-01-05 14:13 | NUR ---
PATIENT REFUSING TO WEAR SCDS AT THIS TIME.
--- NOTE | 2017-01-05 15:55 | NUR ---
PATIENT TEMP SPIKED TO 102.5, PAGED DR NAIR. CPOC
[2017-01-05 16:00] VITALS: BP 105/50
--- NOTE | 2017-01-05 16:15 | NUR ---
TYLENOL GIVEN FOR FEVER. CPOC
--- NOTE | 2017-01-05 16:39 | NUR ---
Wound care consult: Pt is from [facility] and has numerous pressure ulcers. 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 Current treatment is wet to dry dressings using Dakins solution, covering with dry 4x4 and ABD pads and securing with hyperfix tape. There is an open chronic wound in fold of left groin. Maxorb AG is applied and secured with tape. Left lateral ankle has 1.5cm x 2cm x 0.4cm healing stage 4 pressure injury. Right medial ankle 1cm x 1cm x 0.5cm healing stage 3 pressure injury. Right medial great toe has scabbed area. Pt is being treated at [facility] wound clinic as follows: Dakins solution wet to dry dressings to buttocks/ Santyl ointment to wounds on ankles. Maxorb AG to wound on left groin. Wound care will continue monitoring.
--- NOTE | 2017-01-05 18:23 | NUR ---
PATIENT COLOSTOMY BAG CHANGED, APPLICATION CHANGED. PATIENT DENIES ANY NEEDS AT THIS TIME. CPOC
[2017-01-05 19:00] VITALS: BP 120/49
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
[2017-01-06] VITALS (7 sets, daily range): BP systolic 95–118; BP diastolic 21–62
--- NOTE | 2017-01-06 06:00 | NUR ---
PT RESITNG WITH NO DISTRESS. VOICING NO NEEDS. CPOC. CALL LIGHT IN REACH.
--- NOTE | 2017-01-06 07:15 | NUR ---
RECIEVED REPORT ONPATIENT, PATIENT IS SLEEPING AT THIS TIME, NAD NOTED. CHEST RISES AND FALLS EQUALLY. PATIENT HAS A R CHEST IP INFUSING WITH ZOFRAN AT 4.7ML/HR. PATIENT BED IS LOW AND LOCKED AT THIS TIME. CALL LIGHT IS IN REACH. CPOC
--- NOTE | 2017-01-06 08:30 | NUR ---
RECHECKED PATIENT BP 105/60. CPOC
--- NOTE | 2017-01-06 09:00 | NUR ---
MORNING MEDICATIONS GIVEN WITH NO ISSUES. CPOC
--- NOTE | 2017-01-06 10:51 | NUR ---
PATIENT RESTING IN BED, DENIES ANY NEEDS AT THIS TIME. CPOC
--- NOTE | 2017-01-06 12:00 | NUR ---
PATIENT SITTING UP IN BED, EATING LUNCH. DENIES ANY NEEDS AT THIS TIME. WILL CONT TO MONITOR PATIENT. BED LOW AND LOCKED. CALL LIGHT IN REACH. CPOC.
--- NOTE | 2017-01-06 12:35 | NUR ---
PATIENT GIVEN DILUADID 1MG FOR PAIN 6/10 IN BACK. WILL CONT TO MONITOR. CPOC
--- NOTE | 2017-01-06 16:58 | NUR ---
DRESSING CHANGE TO BUTTOCK, GREEN DRAINAGE NOTED, SOAKED THROUGH PINK PAD. WET TO DRY USING DAIKINS, 4X4 GAUZE AND ABD PAD. ANKLE DRESSINGS CHANGED USING MAXSORB AND SANTLE. WRAPPED WITH KERLIX. DRESSINGS ARE CDI. CPOC
--- NOTE | 2017-01-06 18:00 | NUR ---
PATIENT EATING DINNER AT THIS TIME. DENIES ANY NEEDS. CPOC
[2017-01-07 02:07] VITALS: BP 106/48
--- NOTE | 2017-01-07 05:22 | NUR ---
PT LYING IN BED, HOB 40 DEGREES, AWAKE, ALERT, ORIENTED, DENIES ANY NEEDS. PT IS LOOKING AT HER CELL PHONE AT THIS TIME. CONTINUE TO MONITOR CLOSELY. BED LOW, CALL LIGHT IN REACH, SIDE RAILS X 2.
[2017-01-07 05:25] VITALS: BP 86/36
[2017-01-07 06:29] LABS: BASOPHILS 0.1 % (0-2); EOSINOPHILS 0.6 % (0-7); HEMATOCRIT 33.1 % (36.0-48.0); HEMOGLOBIN 10.1 g/dL (12-16); IMMATURE GRANULOCYTES 0.4 % (0-5); MCH 24.3 pg (26.0-34.0); MCHC 30.5 g/dL (31.0-37.0); MCV 79.6 fL (80.0-100.0); MEAN PLATELET VOLUME 8.6 fL (7.4-10.4); MONOCYTES 1.8 % (2-11); NEUTROPHILS 91.1 % (40-80); RBC 4.16 10x6/uL (4.00-5.40); RDW 16.4 % (11.5-14.5); WBC 11.9 10x3/uL (4.8-10.8)
[2017-01-07 06:45] LABS: PLATELET COUNT 292 10x3/uL (130-400)
[2017-01-07 06:58] LABS: CALC OSMOLALITY 269 mosm/kg (275-300); CALCIUM 8.3 mg/dL (8.5-10.1); CHLORIDE - SERUM 98 mmol/L (98-107); CREATININE - SERUM 0.8 mg/dL (0.6-1.3); GLUCOSE 135 mg/dL (74-106); POTASSIUM - SERUM 4.1 mmol/L (3.5-5.1); SODIUM 135 mmol/L (136-145); UREA NITROGEN 7 mg/dL (7-18); eGFR NON AFRICAN AMERICAN > 90 mL/min (90-120)
[2017-01-07 07:01] LABS: CARBON DIOXIDE 27.6 mmol/L (21.0-32.0)
--- NOTE | 2017-01-07 07:17 | NUR ---
RECIEVED REPORT ONPATIENT, PATIENT IS SLEEPING AT THIS TIME, NAD NOTED. CHEST RISES AND FALLS EQUALLY. PATIENT HAS A R CHEST IP INFUSING WITH ZOFRAN AT 4.7ML/HR. BED IS LOW AND LOCKED. CALL LIGHT IN REACH. WILL CONT TOMONITOR PATIENT. CPOC
[2017-01-07 08:00] VITALS: BP 91/41
--- NOTE | 2017-01-07 09:03 | NUR ---
PATIENT IS SLEEPING, WILL GIVE MORNINGMEDS WHEN PATIENT WAKES UP. CPOC
--- NOTE | 2017-01-07 11:21 | NUR ---
PATIENT GIVEN 1MG OF DILUADID FOR PAIN 8/10 IN BACK. PATIENT DENIES ANY OTHER NEEDS. CPOC
[2017-01-07 12:00] VITALS: BP 99/43
--- NOTE | 2017-01-07 13:34 | NUR ---
PATIENT GONE TO NUCLEAR MEDICINE FOR BONE SCAN
--- NOTE | 2017-01-07 14:00 | NUR ---
PATIENT BACK FROM NUCLEAR MEDICINE. CPOC
--- NOTE | 2017-01-07 15:05 | NUR ---
DILUADID 1 MG GIVEN FOR PAIN 8/10 IN BACK AND SHOULDER. CPOC
--- NOTE | 2017-01-07 16:12 | NUR ---
PATIENT GONE TO NUCLEAR MEDICINE AGAIN FOR SECOND SCAN. CPOC
--- NOTE | 2017-01-07 16:40 | NUR ---
PATIENT BACK TO ROOM, DENIES ANY NEEDS. CPOC
--- NOTE | 2017-01-07 17:45 | NUR ---
PATIENT SITTING UP IN BED, EATING DINNER. DENIES ANY NEEDS. CPOC
--- NOTE | 2017-01-07 18:34 | NUR ---
INFORMED PATIENT IT IS SHIFT CHANGED. DENIES ANY NEEDS AT THIS TIME. CPOC
[2017-01-07 22:06] VITALS: BP 99/33
[2017-01-08 01:54] VITALS: BP 100/53
--- NOTE | 2017-01-08 04:24 | NUR ---
PATIENT'S DILAUDID D/Cd FROM MAY, PER DR NAIR CONTINUE THIS ORDER. PATIENT IS ALERT AND STATES PAIN AT A 7, MEDICATION GIVEN FOR PAIN. CALL LIGHT IN REACH.
--- NOTE | 2017-01-08 05:17 | NUR ---
CALL LIGHT IN REACH, WILL CONTINUE WITH PLAN OF CARE.
[2017-01-08 06:17] VITALS: BP 90/34
[2017-01-08 08:00] VITALS: BP 93/44
--- NOTE | 2017-01-08 08:04 | NUR ---
AM ROUNDS - PT IN BED AND APPEARS TO BE SLEEPING AT THIS TIME WITH EQUAL AND NON LABORED BREATHING. PT IS ON CONTACT ISO. LEFT CHEST INFUSAPORT, ZOFRAN AT 4.7CC/HR. BED AT LOWEST POSITION. CALL HOFF IN USE/REACH. SIDE RAILS UP X2. WILL CONTINUE TO MONITOR.
[2017-01-08 12:00] VITALS: BP 120/68
[2017-01-08 16:00] VITALS: BP 105/59
--- NOTE | 2017-01-08 19:30 | NUR ---
RESTING ON LEFT SIDE. DENIES ANY NEEDS. L CHEST PORT WITH ZOFRAN INFUSING AT 4.7ML/HR. ASSESSMENTS COMPLETED FOR NURSING FLOWSHEET. DOES NOT WANT SCD'S ON. IN CONTACT ISOLATION FOR ESBL, ECOLI IN URINE.
[2017-01-08 20:00] VITALS: BP 104/66
--- NOTE | 2017-01-08 21:25 | NUR ---
ADMIN SCHED MEDS AND DILAUDID IV PER REQUEST FOR C/O NECK AND SHOULDER PAIN LEVEL 8 ON NUMBER SCALE, DESCRIBED ACHING. REQUESTED SOME FOOD HEATED UP.
[2017-01-09] VITALS: BP 103/56
--- NOTE | 2017-01-09 01:50 | NUR ---
ADMIN DILAUDID 1MG IV PER REQUEST FOR C/O NECK/SHOULDER PAIN. REQUESTED A SODA AND ICE.
[2017-01-09 04:00] VITALS: BP 118/70
[2017-01-09 06:28] LABS: BASOPHILS 0.1 % (0-2); EOSINOPHILS 1.1 % (0-7); HEMATOCRIT 32.6 % (36.0-48.0); HEMOGLOBIN 9.9 g/dL (12-16); IMMATURE GRANULOCYTES 0.4 % (0-5); LYMPHOCYTES 18.2 % (15-50); MCH 24.3 pg (26.0-34.0); MCHC 30.4 g/dL (31.0-37.0); MCV 79.9 fL (80.0-100.0); MEAN PLATELET VOLUME 8.7 fL (7.4-10.4); MONOCYTES 3.2 % (2-11); RBC 4.08 10x6/uL (4.00-5.40); RDW 16.6 % (11.5-14.5)
[2017-01-09 06:29] LABS: PLATELET COUNT 358 10x3/uL (130-400); WBC 8.2 10x3/uL (4.8-10.8)
[2017-01-09 06:58] LABS: C-REACTIVE PROTEIN 12.9 mg/dL (0.0-0.9); CALC OSMOLALITY 267 mosm/kg (275-300); CALCIUM 8.5 mg/dL (8.5-10.1); CHLORIDE - SERUM 98 mmol/L (98-107); CREATININE - SERUM 0.8 mg/dL (0.6-1.3); GLUCOSE 124 mg/dL (74-106); POTASSIUM - SERUM 3.8 mmol/L (3.5-5.1); SODIUM 135 mmol/L (136-145); eGFR NON AFRICAN AMERICAN > 90 mL/min (90-120)
[2017-01-09 07:02] LABS: UREA NITROGEN 5 mg/dL (7-18)
[2017-01-09 07:38] LABS: ERYTHROCYTE SEDIMENTATION RATE 105 mm/hr (0-20)
--- NOTE | 2017-01-09 08:06 | NUR ---
AM ROUNDS - PT IN BED AND APPEARS TO BE SLEEPING WITH EQUAL AND NON LABORED BREATHING. PT IS ON ROOM AIR. BED AT LOWEST POSITION. CALL HOFF IN USE/REACH. SIDE RAILS UP X2. WILL CONTINUE TO MONITOR
[2017-01-09 08:56] VITALS: BP 90/42
[2017-01-09 11:39] VITALS: BP 105/49
--- NOTE | 2017-01-09 13:10 | NUR ---
Patient Name: SANTANA PADILLA Admission Status: ER Accout number: [id number] Admission Date: 01-04-2017 : 1990 Admission Diagnosis:FEVER, UNSPECIFIED Attending: NONI NAIR Current LOS: 5 Anticipated DC Date: Planned Disposition: Nursing Facility [facility] Primary Insurance: [email or web address] [facility] PLANNED EXTERNAL PROVIDER: [facility], [employer] [facility] Discharge Planning Comments: * Is the patient Alert and Oriented? Yes 0 * How many steps to enter\exit or inside your home? NONE 0 * PCP DR. NAIR 0 * Pharmacy [facility] 0 * Preadmission Environment [facility] 0 * Facility Name [facility] 0 * ADLs Partial Dependent 0 * Partial ADLs (Assistance needed) Bathing Dressing Medication Management Toileting Transfers 0 * Equipment Catheter Supplies Hospital Bed Ostomy Supplies Shower Chair Wheelchair Wound Supplies 0 * Other Equipment ALL MEDICAL EQUIPMENT PROVIDED BY NURSING FACILITY 0 * List name and contact numbers for known caregivers / representatives who currently or will assist patient after discharge: YOLANDA PADILLA, MOTHER, 0 * Community resources currently utilized None 0 * Please name any agencies selected above. NONE 0 * Additional services required to return to the preadmission environment? No 0 * Can the patient safely return to the preadmission environment? Yes 0 * Has this patient been hospitalized within the prior 30 days at any hospital? No 0 CM MET WITH PT IN ROOM TO DISCUSS DISCHARGE PLANNING AND NEEDS. PT REPORTS LIVING AT [facility]. PT REPORTS HAVING ALL NEEDED EQUIPMENT THERE AND WILL BE GOING BACK TO [facility] AT DISCHARGE. PT REPORTS SHE CAN RIDE IN THE RESIDENTIAL [facility]AN FOR TRANSPORTATION BACK. CM SPOKE TO YASMIN OF [facility], , WHO VERIFIED POLICE INSPECTOR CARE STATUS AT [facility]. CM FAXED HOSPITAL UPDATE TO [facility] [phone]. FOR DISCHARGE, NURSE REPORT TO BE CALLED TO [facility], , FAX DISCHARGE INFORMATION TO [facility] AT [phone]. [facility] TO ARRANGE VAN TRANSPORTATION. Rubber Goods Supervisor: Zachary Geiger
--- NOTE | 2017-01-09 13:58 | NUR ---
Nutrition Follow Up: Pt was asleep at the time of RD visit. Interview deferred. Spoke with nursing and she said that pt continues to state that she is not hungry. Per RN pt reports that she is in pain. Asked nursing to contact [facility] with any food preferences. Pt is eating 43% meal avg on a regular diet. She is receiving Adolph BID. No BM since admit. Labs reviewed. Meds noted including MV, Lasix. Rec continue current diet. Pt may benefit from an appetite stimulant. RD following.
[2017-01-09 15:42] VITALS: BP 116/49
--- NOTE | 2017-01-09 19:35 | NUR ---
ALERT/AWAKE LYING ON LEFT SIDE. C/O NECK/SHOULDER PAIN LEVEL 5 ON NUMBER SCALE. REQUESTED PAIN MEDICATION. IN CONTACT ISOLATION FOR ESBL AND ECOLI IN URINE. ASSESSMENTS COMPLETED. REFUSED SCD'S. HAS CALL LIGHT IN REACH.
[2017-01-09 21:06] VITALS: BP 100/26
[2017-01-10] VITALS (7 sets, daily range): BP systolic 90–116; BP diastolic 35–71
--- NOTE | 2017-01-10 01:30 | NUR ---
ADMIN DILAUDID IV PER REQUEST FOR PAIN. NO OTHER NEEDS VOICED.
--- NOTE | 2017-01-10 07:00 | NUR ---
RECEIVED REPORT. ASSUMED CARE OF PATIENT. CALL LIGHT WITHIN REACH. RESTING WITH EYES CLOSED, EASILY AROUSED. NO DISTRESS.
--- NOTE | 2017-01-10 09:30 | NUR ---
MEDICATED FOR PAIN . NO DISTRESS.
--- NOTE | 2017-01-10 13:40 | NUR ---
MEDICATED FOR PAIN AT THIS TIME. NO DISTRESS.
--- NOTE | 2017-01-10 14:30 | NUR ---
WOUND CARE COMPLETE AT THIS TIME. TOLERATED WOUND CARE WELL. NO DISTRESS.
--- NOTE | 2017-01-10 17:50 | NUR ---
MEDICATED FOR PAIN AT THIS TIME. NO DISTRESS.
--- NOTE | 2017-01-10 18:02 | NUR ---
PAGED TO INQUIRE IF THERE IS ANY THING ELSE WE CAN ADMINISTER TO HELP WITH VOMITING BILE COLORED EMESIS.
--- NOTE | 2017-01-10 18:08 | NUR ---
PATIENT COMPLAIN OF BEING NAUSEATED AND REFUSED PM MEAL TRAY. PATIENT CONSUMED LARGE CHOCOLATE SHAKE AT 1655. RESTING IN BED WITH EYES OPEN, ATTENTION TOWARD CELLPHONE AT THIS TIME. NO DISTRESS.
--- NOTE | 2017-01-10 21:45 | NUR ---
ADMIN SCHED MEDS AND DILAUDID IV PER REQUEST FOR C/O SHOULDER AND BACK PAIN LEVEL 8 ON NUMBER SCALE. REQUESTED SNACK OF APPLESAUCE AND MILK.
[2017-01-11] VITALS (7 sets, daily range): BP systolic 86–112; BP diastolic 31–55
--- NOTE | 2017-01-11 02:15 | NUR ---
ADMIN DILAUDID IV PER REQUEST FOR C/O SHOULDER/BACK PAIN. REQUESTED SOME APPLESAUCE AND MILK.
--- NOTE | 2017-01-11 05:54 | NUR ---
C/O PAIN, MEDICATED WITH DILAUDID 1MG SIVP. ALSO GAVE AM MEDS. IV ZOSYN COMPLETED AND IV ZOFRAN INFUSING.
--- NOTE | 2017-01-11 06:45 | NUR ---
PT AWAKE/ALERT. IVF/ZOAFRAN DRIP INFUSING. NO DISTRESSS. CPOC.
--- NOTE | 2017-01-11 07:58 | NUR ---
ASSESSMENT DONE. DENIES NEEDS
--- NOTE | 2017-01-11 09:39 | NUR ---
RESTS IN ISOLATION ROOM. IRIS NEEDS AT THIS TIME. WILL CONT. PLAN OF CARE.
--- NOTE | 2017-01-11 17:17 | NUR ---
WITHOUT CHANGES OR DISTRESS NOTED AT THIS TIME. DENIES NEEDS.
--- NOTE | 2017-01-11 20:00 | NUR ---
PT RESTING IN BED WITH NO DISTRESS. ALERT/ORIENTED. IV ZOFRAN @ 4.7ML/HR AND NS @ KVO BOTH INFUSING TO LEFT IMPLANTED PORT. PT HAS A COLOSTOMY TO LEFT SIDE OF ABDOMEN AND UROSTOMY TO RIGHT SIDE. SEE SHIFT ASSESSMENT. CPOC.
--- NOTE | 2017-01-11 22:30 | NUR ---
PT STATES LEAKAGE FROM HER COLOSTOMY. PROVIDED NEW BAG/WAFER AND PT PROVIDED HER OWN CARE WITH ONLY MINIMAL ASSISTANCE FROM NURSE.
--- NOTE | 2017-01-12 | NUR ---
MEDICATED WITH DILAUDID FOR LEFT HIP PAIN. DILAUDID SIVP. PT AWAKE AND WATCHING TV ON HER PHONE. CHRONIC LEFT HIP PAIN.
--- NOTE | 2017-01-12 04:25 | NUR ---
PT AWAKE, C/O LEFT HIP PAIN. NEWLY PLACE COLOSTOMY BAG INTACT. MEDICATED WITH DILAUDID 1 MG SIVP AND ALSO GAVE AM MEDS. NO OTHER NEEDS. PT NOW TRYING TO GET COMFORTABLE TO SLEEP.
[2017-01-12 05:20] VITALS: BP 95/15
[2017-01-12 05:37] LABS: BASOPHILS 0.3 % (0-2); EOSINOPHILS 2.7 % (0-7); HEMATOCRIT 33.5 % (36.0-48.0); HEMOGLOBIN 9.9 g/dL (12-16); IMMATURE GRANULOCYTES 1.4 % (0-5); LYMPHOCYTES 27.4 % (15-50); MCH 24.1 pg (26.0-34.0); MCHC 29.6 g/dL (31.0-37.0); MCV 81.5 fL (80.0-100.0); MEAN PLATELET VOLUME 8.9 fL (7.4-10.4); MONOCYTES 5.6 % (2-11); NEUTROPHILS 62.6 % (40-80); RBC 4.11 10x6/uL (4.00-5.40); RDW 17.1 % (11.5-14.5); WBC 9.1 10x3/uL (4.8-10.8)
[2017-01-12 05:42] LABS: PLATELET COUNT 483 10x3/uL (130-400)
[2017-01-12 05:55] LABS: ERYTHROCYTE SEDIMENTATION RATE 98 mm/hr (0-20)
[2017-01-12 06:02] LABS: ALBUMIN 1.9 g/dL (3.4-5.0); ALKALINE PHOSPHATASE 204 U/L (46-116); ALT (SGPT) 49 U/L (10-68); C-REACTIVE PROTEIN 10.6 mg/dL (0.0-0.9); CALC OSMOLALITY 271 mosm/kg (275-300); CALCIUM 8.8 mg/dL (8.5-10.1); CARBON DIOXIDE 30.8 mmol/L (21.0-32.0); CHLORIDE - SERUM 99 mmol/L (98-107); CREATININE - SERUM 0.8 mg/dL (0.6-1.3); GLUCOSE 111 mg/dL (74-106); POTASSIUM - SERUM 3.6 mmol/L (3.5-5.1); PROTEIN - SERUM 7.2 g/dL (6.4-8.2); SODIUM 137 mmol/L (136-145); UREA NITROGEN 5 mg/dL (7-18); eGFR NON AFRICAN AMERICAN > 90 mL/min (90-120)
--- NOTE | 2017-01-12 07:40 | NUR ---
AM ROUNDS - PT IN BED AND APPEARS TO BE SLEEPING WITH EQUAL AND NON LABORED BREATHING. PT IS ON ROOM AIR. LEFT CHEST PORT, NS AT KVO (10CC/HR) AND ZOFRAN AT 4.7 CC/HR. PT IS ON CONTACT ISOLATION. BED AT LOWEST POSITION. CALL HOFF IN USE/REACH. SIDE RAILS UP X2. WILL CONTINUE OT MONITOR
[2017-01-12 08:23] VITALS: BP 86/34
[2017-01-12 11:55] VITALS: BP 93/43
--- NOTE | 2017-01-12 13:33 | NUR ---
PT IS IN BED WITH NO NEEDS AT THIS TIME. WILL CONTINUE TO MONITOR
[2017-01-12 15:53] VITALS: BP 114/43
[2017-01-12 19:00] VITALS: BP 103/47
--- NOTE | 2017-01-12 19:45 | NUR ---
ROUNDING NOTE: PT IS LAYING DOWN IN BED AT CHANGE OF SHIFT. PT IS A,A,OX3. PT HAS NS AT 10CC/HR AND A ZOFRAN DRIP AT 4.7/HR TO RIGHT CHEST PORT. PT IS A PARAPLEGIC WHO IS SELF CARE FOR TURNING AND POSITIONING. PT HAS A LARGE PRESSURE ULCER ON HER SACRAL AREA. DAILY DRESSING CHANGE DONE ON DAYS. PT'S LEGS ARE CONTRACTED AND SHE CANNOT LAY ON HER RIGHT SIDE DUE TO HIP PAIN, SO SHE ALTERNATES FROM HER BACK TO HER LEFT SIDE. ENCOURAGED PT TO KEEP TURNING AND POSITIONING TO KEEP PRESSURE OFF HER BACKSIDE MUCH POSSIBLE TO PROMOTE HEALING. PT IS ON CONTACT ISOLATION FOR ESBL IN URINE. SHE HAS RIGHT UROSTOMY AND A LEFT COLOSTOMY. PT IS REQUESTING PAIN MEDS, WILL ADD TO NIGHT TIME MED PASS PER REQUEST. WILL CONT TO MONITOR.
[2017-01-13] VITALS: BP 124/36
[2017-01-13 04:00] VITALS: BP 99/36
--- NOTE | 2017-01-13 05:30 | NUR ---
PT HAS RECEIVED PRN PAIN MEDS Q4 HOURS PER PATIENT REQUEST FOR HER SEVERE RIGHT HIP AND BACK PAIN. CONTINUES ON ZOFRAN DRIP, DENIES NAUSEA. WILL CONTINUE TO MONITOR.
[2017-01-13 08:35] VITALS: BP 81/50
--- NOTE | 2017-01-13 09:00 | NUR ---
AM MEDS GIVEN AT THIS TIME. ALSO ADMINISTERED 0.5MG OF DILAUDID FOR PAIN LEVEL OF 7/10, PT REFUSED COLACE. PT DENIES ANY OTHER NEEDS AT THIS TIME. CALL LIGHT IN REACH, NAD NOTED, WILL CONTINUE TO MONITOR.
--- NOTE | 2017-01-13 10:27 | NUR ---
Nutrition follow-up: Visited with pt during meal rounds. Pt is not eating much due to nausea, vomiting. Pt also states she is not drinking the Adolph; does not like the taste. Pt is requesting [place] Instant Breakfast; RDN will see if we can get it today. Labs reviewed Wt: 140# RDN will continue to encourage increased po intake. Following.
--- NOTE | 2017-01-13 10:50 | NUR ---
IVBP OF CEFEPIME HUNG AT THIS TIME. PT IN BED, WANTS TO WAIT TO DO DRESSING CHANGE. WILL TRY AGAIN LATER TODAY AFTER LUNCH. PT DENIES ANY NEEDS AT THIS TIME. CALL LIGHT IN REACH, NAD NOTED, WILL CONTINUE TO MONITOR.
[2017-01-13 12:02] VITALS: BP 97/57
--- NOTE | 2017-01-13 13:00 | NUR ---
ADMINISTERED 1MG OF DIALUDID FOR PAIN LEVEL OF 6/10. ALSO PROVIDED DRESSING CHANGE TO BILAT HEELS. AND BOTTOM. PT TOLERATED PROCEDURE WELL, DENIES ANY NEEDS AT THIS TIME. CALL LIGHT IN REACH, NAD NOTED. WILL CONTINUE PLAN OF CARE.
--- NOTE | 2017-01-13 17:28 | NUR ---
ADMINISTERED 1MG OF DILAUDID FOR PAIN LEVEL OF 8/10. ALSO EMPTIED DEGROOT. PT DENIES ANY OTHER NEEDS AT THIS TIME. CALL LIGHT IN REACH, NAD NOTED, WILL CONTINUE TO MONITOR.
--- NOTE | 2017-01-13 18:37 | NUR ---
PT REQUESTED A CUP AND SOME MILK, WILL PROVIDED PT WITH REQUESTED ITEMS. PT DENIES ANY OTHER NEEDS AT THIS TIME. NAD NOTED, CALL LIGHT IN REACH.
[2017-01-13 21:28] VITALS: BP 93/45
[2017-01-14 01:06] VITALS: BP 96/54
--- NOTE | 2017-01-14 02:30 | NUR ---
PT'S COLOSTOMY BAG LEAKING. OBTAINED SUPPLIES TO CHANGE OSTOMY AND ASSISTED PT TO CHANGE HER COLOSTOMY. PT TOLERATED WELL. WILL CONT TO MONITOR.
[2017-01-14 05:07] VITALS: BP 96/47
--- NOTE | 2017-01-14 08:04 | NUR ---
AM ROUNDS - PT IS IN BED AND AWAKE AT THIS TIME. RIGHT CHEST INFUSAPORT, NS AT KVO AND ZOFRAN AT 4.7VV/HR. PT IS ON ROOM AIR. PT REFUSES SCD. CONTACT ISOLATION. BED AT LOWEST POSITIO. CALL HOFF IN USE/REACH. SIDE RAILS UP X2. NO NEEDS AT THIS TIME. WILL CONTINUE TO MONITOR
[2017-01-14 08:34] VITALS: BP 95/57
[2017-01-14 12:44] VITALS: BP 123/78
[2017-01-14 16:19] VITALS: BP 122/98
--- NOTE | 2017-01-14 17:52 | NUR ---
PT IN BED AND APPEARS TO BE SLEEPING WITH EQUAL AND NON LABORED BREATHING. WILL CONTINUE TO MONITOR
--- NOTE | 2017-01-14 18:39 | NUR ---
UNABLE TO GET TO CHANGE CVL DRESSING TODAY, THURSDAY,. WILL REPORT TO SALES REPRESENTATIVE TRAINEE.
--- NOTE | 2017-01-14 18:46 | NUR ---
CONCENTS FOR A LEFT HIP GIRDLESTONE PROCEDURE, BLOOD AND ANESTHESIA SIGNED AND IN CHART. NPO AFTER NIDNIGHT SIGN PLACED ON DOOR ADN EXPLAINED TO PT. WILL CONTINUE TO MONITOR
--- NOTE | 2017-01-14 20:43 | NUR ---
PT AWAKE, ALERT, ORIENTED, LYING IN BED, REQUESTING PRN PAIN MEDICATION. PT IS ALSO C/O HAVING TO FREQUENTLY CHANGE HER COLOSTOMY BAD R/T DIARRHEA THAT SHE R/T TO THE ANTIBIOTICS. PT HAS ASKED FOR AN ANTIDIARRHEAL FOR THIS. NO OTHER NEEDS AT THIS TIME. PT IS AWARE THAT SHE IS NPO AFTER MIDNIGHT. WILL CONTINUE TO MONITOR CLOSELY. BED LOW, CALL LIGHT IN REACH, SIDE RAILS X 2, HOB 30 DEGREES. PT ALSO REFUSES TO WEAR SCD'S, STATING THEY CAUSE HER DISCOMFORT.
[2017-01-14 21:42] VITALS: BP 108/49
--- NOTE | 2017-01-15 04:36 | NUR ---
CLERICAL ASSISTANT AT BEDSIDE TO OBTAIN VITALS, WILL CONTINUE TO MONITOR. CALL LIGHT IN REACH.
[2017-01-15 06:37] LABS: BASOPHILS 0.1 % (0-2); EOSINOPHILS 1.1 % (0-7); HEMATOCRIT 38.7 % (36.0-48.0); HEMOGLOBIN 11.7 g/dL (12-16); IMMATURE GRANULOCYTES 2.3 % (0-5); LYMPHOCYTES 16.1 % (15-50); MCH 24.3 pg (26.0-34.0); MCHC 30.2 g/dL (31.0-37.0); MCV 80.5 fL (80.0-100.0); MEAN PLATELET VOLUME 8.6 fL (7.4-10.4); MONOCYTES 3.4 % (2-11); PLATELET COUNT 467 10x3/uL (130-400); RBC 4.81 10x6/uL (4.00-5.40); RDW 17.3 % (11.5-14.5); WBC 14.4 10x3/uL (4.8-10.8)
[2017-01-15 06:59] LABS: ALBUMIN 2.3 g/dL (3.4-5.0); ALKALINE PHOSPHATASE 181 U/L (46-116); ALT (SGPT) 37 U/L (10-68); CALC OSMOLALITY 272 mosm/kg (275-300); CALCIUM 8.7 mg/dL (8.5-10.1); CARBON DIOXIDE 30.1 mmol/L (21.0-32.0); CHLORIDE - SERUM 99 mmol/L (98-107); CREATININE - SERUM 0.8 mg/dL (0.6-1.3); GLUCOSE 104 mg/dL (74-106); POTASSIUM - SERUM 3.8 mmol/L (3.5-5.1); PROTEIN - SERUM 7.6 g/dL (6.4-8.2); SODIUM 138 mmol/L (136-145); UREA NITROGEN 5 mg/dL (7-18); eGFR NON AFRICAN AMERICAN > 90 mL/min (90-120)
--- NOTE | 2017-01-15 08:04 | NUR ---
AM ROUNDS - BE IN BED AND APPEARS TO BE SLEEPING WITH EQUAL AND NON LABORED BREATHING. PT ON ROOM AIR. RIGHT CHEST INFUSAPOET, NS AT KVO, ZOFRAN AT 4.7CC/HR. PT IS ON CONTACT ISOLATION. BED AT LOWEST POSITION. CALL HOFF IN USE/REACH. SIDE RAILS UP X2. WILL COTNIUE TO MONITOR
[2017-01-15 08:53] VITALS: BP 101/55
[2017-01-15 11:57] VITALS: BP 100/55
--- NOTE | 2017-01-15 13:14 | NUR ---
PT REQUESTED PAIN MEDICATION. PAIN MED HAS FALLEN OFF. DR. NAIR CALLED AND MEDICATION DILUADID RE ORDERED AND 1 MG GIVEN IV VIA PORT IN R CHEST.
[2017-01-15 15:09] VITALS: BP 91/47
--- NOTE | 2017-01-15 18:52 | NUR ---
PT IN BED WATCHING SOMETHING ON HER PHONE. NO NEEDS AT THIS TIME. DRESSING CHANGES TO BILAT FEET AND BUTT WERE NOT CHANGED TODAY DO TO TIME RESTAINTS. WILL PASS TO [employer]. WILL CONTINUE TO MONITOR
--- NOTE | 2017-01-15 19:03 | NUR ---
PROCEDURE HAS BEEN CHANGED TO TOMORROW. PER [facility], CONCENTS FOR PROCEDURES ARE GOOD FOR 30 DAYS UNLESS THERE ARE ANY CHANGES. VERBALLY VERIFIED WITH PT THAT SHE STILL WANTS PROCEDURE. PT STATES YES. [id number] ARE SIGNED AND IN CHART FROM YESTERDAY. WILL CONTINUE TO MONITOR
[2017-01-15 21:18] VITALS: BP 112/62
--- NOTE | 2017-01-16 00:50 | NUR ---
NURSE ROUNDS 21:00 01/15/17 - PT LYING IN BED, AWAKE, ALERT, ORIENTED, REQUESTING HER PRN PAIN MEDICATION, NO OTHER NEEDS. CONTINUE TO MONITOR CLOSELY. BED LOW, CALL LIGHT IN REACH, SIDE RAILS X 2, HOB 35-40 DEGREES. PT REFUSES SCD'S.
[2017-01-16 01:16] VITALS: BP 91/48
--- NOTE | 2017-01-16 02:30 | NUR ---
PTS BILATERAL HIP/BUTTOCK DRESSINGS CLEANED AND CHANGED WITH DAKINS WET TO DRY DRESSING ORDERED, BILATERAL ANKLE DRESSINGS CLEANED, TX WITH SANTYL, AND CHANGED ORDERED. PT REFUSES TO HAVE HER GROIN TX, SHE STATES THE WOUND IS NOW COMPLETELY HEALED. BED/LINEN CHANGED AND CLEAN GOWN PLACED ON PT. PT DID ALSO CHANGE HER COLOSTOMY BAG AT THIS TIME. PT DECLINED HIBI-CLENS WASH AT THIS TIME, STATING DAYSHIFT TOLD HER IT WAS BETTER TO WAIT LATER IN THE MORNING PRIOR TO HER SURGERY R/T TO PT SWEATING SO MUCH. NO OTHER NEEDS. PT REMAINS NPO AT THIS TIME. CONTINUE TO MONITOR CLOSELY. BED LOW, CALL LIGHT IN REACH, SIDE RAILS X 2, HOB 30 DEGREES.
[2017-01-16 04:49] VITALS: BP 90/36
[2017-01-16 08:00] VITALS: BP 90/40
--- NOTE | 2017-01-16 11:28 | NUR ---
AM ROUNDS - PT IN BED AND AWAKE.. NO NEEDS. RIGHT CHEST INFUSAPORT, NS AT KVO AND ZOFRAN AT 4.7. PT IS NPO AT THIS TIME DO TO A FURTURE PROCEDURE. PT IS ON ROOM AIR. LEFT COLOSTOMY, SELF CARE AND A RIGHT UROSTOMY. BED AT LOWEST POSITION. CALL HOFF IN USE/REACH. SIDE RAILS UP X2. WILL COTINUE TO MONITOR
[2017-01-16 12:00] VITALS: BP 102/52
--- NOTE | 2017-01-16 13:22 | NUR ---
Nutrition Follow Up: Pt stated that she has continued to have increased nausea and poor appetite. She said that she is drinking CIB and would eat blueberry yogurt if sent. RD discussed Proteinex with pt (as pt has refused Adolph, Ensure, Boost, Mighty Shakes) and pt agreed to this if sent. Pt is eating 12% meal avg on a regular diet. Pt currently NPO for surgery. +BM 01/14/17. Wt loss noted. Labs reviewed. Meds noted including MV, B12, Lasix. Rec continue current diet. Rec Proteinex 30 ml BID. Will send CIB and blueberry yogurt with meals. Will continue to honor food preferences. RD following.
--- NOTE | 2017-01-16 13:37 | NUR ---
PT LEFT FLOOR VIA BED TO PROCEDURE
--- NOTE | 2017-01-16 16:53 | NUR ---
Patient Name: SANTANA PADILLA Admission Status: ER Accout number: [id number] Admission Date: 01-04-2017 : 1990 Admission Diagnosis:FEVER, UNSPECIFIED Attending: NONI NAIR Current LOS: 12 Anticipated DC Date: Planned Disposition: Nursing Facility [facility] Primary Insurance: [email or web address] [facility] PLANNED EXTERNAL PROVIDER: [facility] MEDICAID BED Discharge Planning Comments: CM SPOKE TO YASMIN OF [facility], , WHO REQUESTED FAXED UPDATE; CM FAXED HOSPITAL UPDATE TO [facility] [phone]. FOR DISCHARGE, NURSE REPORT TO BE CALLED TO [facility], , FAX DISCHARGE INFORMATION TO [facility] AT [phone]. AMBULANCE TRANSPORT Kettle Girl: Zachary Geiger
[2017-01-16 21:01] VITALS: BP 102/62
[2017-01-16 23:53] LABS: BASOPHILS 0.1 % (0-2); EOSINOPHILS 0.8 % (0-7); HEMATOCRIT 36.7 % (36.0-48.0); HEMOGLOBIN 11.4 g/dL (12-16); IMMATURE GRANULOCYTES 1.9 % (0-5); LYMPHOCYTES 16.4 % (15-50); MCH 25.3 pg (26.0-34.0); MCHC 31.1 g/dL (31.0-37.0); MCV 81.4 fL (80.0-100.0); MEAN PLATELET VOLUME 8.6 fL (7.4-10.4); MONOCYTES 3.9 % (2-11); NEUTROPHILS 76.9 % (40-80); PLATELET COUNT 442 10x3/uL (130-400); RBC 4.51 10x6/uL (4.00-5.40); RDW 16.2 % (11.5-14.5); WBC 14.2 10x3/uL (4.8-10.8)
[2017-01-17] VITALS (7 sets, daily range): BP systolic 85–110; BP diastolic 43–64
[2017-01-17 05:10] LABS: HEMATOCRIT 35.7 % (36.0-48.0); MCH 25.1 pg (26.0-34.0); MCHC 30.8 g/dL (31.0-37.0); MCV 81.3 fL (80.0-100.0); MEAN PLATELET VOLUME 8.6 fL (7.4-10.4); RBC 4.39 10x6/uL (4.00-5.40); RDW 16.3 % (11.5-14.5)
[2017-01-17 05:12] LABS: WBC 18.2 10x3/uL (4.8-10.8)
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
--- NOTE | 2017-01-17 07:58 | NUR ---
0718-ROUNDING MADE WITH [facility] NURSE. REPORT GIVEN AT BEDSIDE. DRESSING SEEN TO LEFT ENTIRE HIP AREA, ON MENSES. LEFT COLOSTOMY SEEN, RIGHT UROLSTOMY SEEN WITH JUST DEGROOT CATH GOING INTO THE BARROW DRAINING TO DEGROOT CATH BAG. ON ROOM AIR. RIGHT IP SEEN WITH DAYCARE PROVIDER DILAUDID FOR PAIN CONTROL. SLIGHT REDNESS SEEN TO CHEECKS, INSTRUCTED TO COUGH AND DEEP BREATH. WILL MONITOR.
--- NOTE | 2017-01-17 09:30 | NUR ---
PATIENT STATES THAT SHE WANTS HER DRESSING CHANGE PAST LUNCH.
--- NOTE | 2017-01-17 14:28 | NUR ---
1332-ALL WOUNDS DONE ORDERED EXCEPT USED NS INSTEAD OF THE DAKIN'S POST SURGERY TO LEFT HIP AREA. COMPLETE BED BATH AND LINEN CHANGE ALSO DONE.
--- NOTE | 2017-01-17 16:10 | NUR ---
PATIENT REPORTS TO HAVE A "SLIGHT" NAP. DENIES NEEDS AT PRESENT TIME. WILL CONTINUE TO MONITOR.
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
--- NOTE | 2017-01-17 20:36 | NUR ---
BEDTIME MEDS GIVEN. SOMA FOR SPASMS. WAS PLANNING TO PATCH RIGHT EYE, BUT PT NOW SAYS IT IS BETTER AND NOT TO PATCH IT. SHE DID STILL WANT THE BENADRYL 25MG SIVP FOR THE ALLERGIC FLAREUP IN THE RIGHT EYE.
--- NOTE | 2017-01-17 22:00 | NUR ---
REQUEST FOR DILAUDID BOLUS FOR BREAKTHROUGH PAIN. GIVEN 1MG VIA WIRE SPLICER AT THIS TIME.
--- NOTE | 2017-01-18 01:00 | NUR ---
CALLED TO ROOM TO ASSESS PT'S SACRAL/COCCYX WOUND DRESSING. DRESSING HAS BECOME UNPACKED AND IS TRICKLING BLOOD FROM ONE SMALL AREA, PLUS PT IS ON HER MENSTRUAL CYCLE AND THERE IS BLOOD SOAKING THROUGH THE DRESSING. REMOVED ALL OLD DRESSING AND WET TO DRY DRESSING TO ENTIRE SACRUM/COCCYX AREA, PLUS ABD PAD TO VAGINAL OPENING FOR HER MENSES AND THEN ADDITIONAL ABD PADS SECURED TO AREA FOR DRESSING. PT DEVELOPED A BACK SPASM WHILE PROCESS BEING CARRIED OUT AND WAS GIVEN A MASSAGE WITH LOTION TO HER BACK. SHE WAS ALMOST IN TEARS DURING THE SPASM. BOLUS 1MG GAS ANALYST DILAUDID GIVEN. PT THEN PROVIDED CARE WITH NURSE ASSISTANCE TO HER UROSTOMY DEGROOT. SHE FELT IT WAS CLOGGING UP WITH MUCOUS AND DEGROOT WAS FLUSHED UNTIL URINE FLOWED FREELY. THEN PT DECIDED SHE WANTED TO SHAMPOO HER HAIR WITH THE HAIR CAPS. NUMERICAL CONTROL ROUTER OPERATOR NOW IN ROOM ASSISTING PATIENT.
[2017-01-18 05:00] VITALS: BP 92/52
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
[2017-01-18 06:38] LABS: BASOPHILS 0.1 % (0-2); EOSINOPHILS 1.6 % (0-7); HEMATOCRIT 32.6 % (36.0-48.0); HEMOGLOBIN 9.8 g/dL (12-16); IMMATURE GRANULOCYTES 3.2 % (0-5); MCH 24.7 pg (26.0-34.0); MCHC 30.1 g/dL (31.0-37.0); MCV 82.1 fL (80.0-100.0); MEAN PLATELET VOLUME 9.1 fL (7.4-10.4); MONOCYTES 6.4 % (2-11); NEUTROPHILS 66.7 % (40-80); PLATELET COUNT 404 10x3/uL (130-400); RBC 3.97 10x6/uL (4.00-5.40); RDW 16.6 % (11.5-14.5); WBC 14.7 10x3/uL (4.8-10.8)
[2017-01-18 06:47] LABS: ALBUMIN 1.6 g/dL (3.4-5.0); ALKALINE PHOSPHATASE 117 U/L (46-116); ALT (SGPT) 23 U/L (10-68); BILIRUBIN - TOTAL 0.23 mg/dL (0.2-1.3); CALC OSMOLALITY 280 mosm/kg (275-300); CALCIUM 7.9 mg/dL (8.5-10.1); CARBON DIOXIDE 23.7 mmol/L (21.0-32.0); CHLORIDE - SERUM 105 mmol/L (98-107); CREATININE - SERUM 0.7 mg/dL (0.6-1.3); GLUCOSE 150 mg/dL (74-106); POTASSIUM - SERUM 3.4 mmol/L (3.5-5.1); PROTEIN - SERUM 6.3 g/dL (6.4-8.2); SODIUM 140 mmol/L (136-145); UREA NITROGEN 9 mg/dL (7-18); eGFR NON AFRICAN AMERICAN > 90 mL/min (90-120)
--- NOTE | 2017-01-18 07:46 | NUR ---
IN CONTACT ISOLATION AT THIS TIME. RIGHT IP WITH DRY INTACT DRESSING SEEN WITH NS INFUSING AT 10 CC/HR ALONG WITH ZOFRAN DRIP AT 4.7 CC/HR AND DEGREE CLERK DILAUDID 0.8/10/ NO LO. PER FIRE WATCHER, PATIENT HAS RECEIVED SEVERAL BOSES OF PAIN MEDS AND WENT THOUGH 2 SYRINGES OF DILAUDID. LEFT COLOSTOMT, RIGHT UROLSTOMY OF DEGROOT CATH INTO RED KOTLIK TO DEGROOT BAG. LAY ON RIGHT SIDE, DRY INTACT DRESSINGS TO LEFT HIP AREA AND BUTTOCK. ON MENSES. WILL MONITOR.
[2017-01-18 08:00] VITALS: BP 89/65
--- NOTE | 2017-01-18 11:54 | NUR ---
1150-CALLED TO ROOM WITH PATIENT BREAKING OUT IN REDNESS AND FACE SLIGHTLY SWELLING SEEN. REDNESS TO ARMS AND UPPER CHEST. BENADRYL 25 MG GIVEN OREDERED. PATIENT IS ALSO WANTING A BOLUS OF HER RODEO PERFORMER, GIVEN.
[2017-01-18 12:00] VITALS: BP 85/44
--- NOTE | 2017-01-18 14:03 | NUR ---
PATIENT TO CHANGE OUT HER COLOSTOMY BAG AGAIN, THIS WAS CHANGED YESTERDAY. PINK FOAM BOOTIES PLACED TO BILATERAL ANKLES PAST CHANGING OUT DRESSINGS TO THESE AREAS. PATIENT IS INSTRUCTED IN IS USAGE, GETS IT TO 2500 WITHOUT TOO MUCH TROUBLE. INSTRUCTED IN X 10 EVERY HOUR WHILE AWAKE.
[2017-01-18 16:00] VITALS: BP 82/49
--- NOTE | 2017-01-18 16:14 | NUR ---
HOT PLATE PRESS OPERATOR DOSE CHANGED AND EXPLAINED TO PATIENT. THIS IS VERIFIED BY ALEXEI CORRIGAN. PATIENT TO ALSO ASK FOR SOME BENADRYL. GIVEN.
--- NOTE | 2017-01-18 20:00 | NUR ---
PT AWAKE/ALERT. HER DILAUDID COBOL APPLICATION DEVELOPER IS MAXED OUT FOR THIS 4 HOUR TIME PERIOD AND PT IS AGITATED. SAYING "THIS IS NOT GOING TO WORK". RIGHT IMPLANTED PORT WITH ZOFRAN @ 4.7ML/HR AND NS @ KVO FOR ABT + DILAUDID COBOL APPLICATION DEVELOPER. PT NOW SAYING SHE NEEDS BENADRYL AND VALIUM. BOTH FEET DRESSINGS WERE DONE TODAY. PT STATES HER SACRAL DRESSING WAS PARTIALLY DONE A COUPLE OF TIMES DUE TO BLEEDING FROM HER MENSES BREAKING THROUGHT THE DRESSING. WILL MONITOR.
[2017-01-18 20:49] VITALS: BP 89/51
--- NOTE | 2017-01-18 21:05 | NUR ---
BEDTIME MED GIVEN. BENADRYL IV FOR EYE SWELLING/ITCHING. NEW DILAUDID TECHNICIAN SUBMARINE CABLE EQUIPMENT VIAL UP AND 1MG BOLUS GIVEN AT THIS TIME. VALIUM 5MG BY MOUTH FOR SPASMS AND IMMODIUM 2MG BY MOUTH ALL GIVEN AT PT REQUEST. NO DRESSING NEEDS AT THIS TIME. WILL MONITOR.
[2017-01-19 01:18] VITALS: BP 85/43
--- NOTE | 2017-01-19 02:15 | NUR ---
PT AWAKE AND WANTING BENADRYL FOR SKIN REDNESS RELATED TO WHAT SHE BELIEVES IS AN ALLERGY TO THE LAUNDRY SOAP. PT ALSO REQUESTING BOLUS OF DILAUDID FOR PAIN. SURGICAL DRESSING TO LEFT HIP IS COMING OFF. SECURED THIS DRESSING. CHECKED SACRAL/COCCYX/BUTTOCK DRESSING AND IT IS INTACT WITH THE ONLY AREA NEEDING TO BE REDONE IS WHERE SHE IS DRAINING MENSTRUAL CYCLE BLOOD. CARE PROVIDED/NEW CHUX. PT NOW RESTING. WILL MONITOR.
--- NOTE | 2017-01-19 04:49 | NUR ---
BLOOD COLLECTED FROM PORT AND SENT FOR AM LABS. PT WANTING MORE IV BENADRYL. INFORMED PT IT WAS AVAILABLE EVERY 4 HOURS, SO IT IS TOO EARLY NOW. PT C/O DIVINITY PROFESSOR PUMP BEING "LOCKED OUT" AGAIN. PUMP IS WORKING AND PT DID 2 PUSHES ON IT WHILE NURSE WAS IN ROOM AND EACH PUSH SUCCESSFULLY DELIVERED 0.5MG OF DILAUDID. REMINDED PT THAT HER CAP IS A TOTAL OF 4MG EVERY 4 HOURS TOTAL. TO SPREAD OUT HER DOSES TO PROMOTE OPTIMAL COMFORT.
[2017-01-19 05:09] LABS: BASOPHILS 0.2 % (0-2); EOSINOPHILS 2.2 % (0-7); HEMATOCRIT 31.2 % (36.0-48.0); HEMOGLOBIN 9.5 g/dL (12-16); IMMATURE GRANULOCYTES 4.9 % (0-5); LYMPHOCYTES 25.9 % (15-50); MCH 24.9 pg (26.0-34.0); MCHC 30.4 g/dL (31.0-37.0); MCV 81.9 fL (80.0-100.0); MEAN PLATELET VOLUME 8.7 fL (7.4-10.4); MONOCYTES 6.6 % (2-11); NEUTROPHILS 60.2 % (40-80); PLATELET COUNT 376 10x3/uL (130-400); RBC 3.81 10x6/uL (4.00-5.40); WBC 14.7 10x3/uL (4.8-10.8)
[2017-01-19 05:15] LABS: CALC OSMOLALITY 274 mosm/kg (275-300); CALCIUM 8.4 mg/dL (8.5-10.1); CARBON DIOXIDE 27.9 mmol/L (21.0-32.0); CHLORIDE - SERUM 102 mmol/L (98-107); CREATININE - SERUM 0.6 mg/dL (0.6-1.3); GLUCOSE 156 mg/dL (74-106); POTASSIUM - SERUM 3.7 mmol/L (3.5-5.1); SODIUM 137 mmol/L (136-145); UREA NITROGEN 7 mg/dL (7-18); eGFR NON AFRICAN AMERICAN > 90 mL/min (90-120)
[2017-01-19 05:25] VITALS: BP 81/38
--- NOTE | 2017-01-19 07:46 | NUR ---
AM ROUNDS- PT IN BED, ASKING FOR BENADRYL, WILL PROVIDED PT WITH SOME BENADRYL. RESP EVEN AND UNLABORED, RT CHEST INFUSAPORT INFUSING NS AT 10, ZOFRAN AT 4.7, AND DILAUDID PROVIDER NETWORK ANALYST. UROSTOMY DRAINING TO GRAVITY , PT DENIES ANY NEEDS AT THIS TIME. CALL LIGHT IN REACH, NAD NOTED, WILL CONTINUE TO MONITOR.
--- NOTE | 2017-01-19 08:19 | NUR ---
AM MEDS GIVEN ALSO ADMINISTERED 25MG OF BENADRYL PER PT REQUEST. SAL JOSEPH APN WITH DR. SUNG AT BEDSIDE TO ASSESS PT. ORDERS GIVEN TO CHANGE LT HIP DRESSING SINCE DRESSING IS COMING OFF. PT IN BED, FIXING TO EAT BREAKFAST. DENIES ANY OTHER NEEDS AT THIS TIME. CALL LIGHT IN REACH, NAD NOTED, WILL CONTINUE TO MONITOR.
[2017-01-19 08:39] VITALS: BP 97/64
--- NOTE | 2017-01-19 09:29 | NUR ---
DILAUDID ENVIRONMENTAL AIDE SYRINGE CHANGED AT THIS TIME. ALSO GAVE 1MG BOLUS FOR PAIN LEVEL OF 8/10, PT STATED " I AM HAVING BACK SPASMS". PT DENIES ANY OTHE NEEDS AT THIS TIME. CALL LIGHT IN REACH, NAD NOTED, WILL CONTINUE TO MONITOR.
--- NOTE | 2017-01-19 10:45 | NUR ---
Patient Name: SANTANA PADILLA Encounter No: [id number] : 1990 Primary Insurance: [employer] Anticipated DC Date: Planned Disposition: Nursing Facility [facility] Cert External Planned Provider: [facility], [employer]ATHER[employer] EQUIPMENT REPAIRER CARE MEDICAID BED DCP follow-up note: CM RECEIVED CALL FROM CARLOS OF [facility], , WHO REQUESTED FAXED UPDATE; CM FAXED HOSPITAL UPDATE TO [facility] [phone]. FOR DISCHARGE, NURSE REPORT TO BE CALLED TO [facility], , FAX DISCHARGE INFORMATION TO [facility] AT [phone]. AMBULANCE TRANSPORT Director Of Financial Aid: Zachary Geiger
--- NOTE | 2017-01-19 12:52 | NUR ---
Nutrition follow-up: Diet: Regular as tolerated with CIB, blueberry yogurt, whole milk x 2 on all trays. Pt is drinking the carnation instant breakfast but is only eating ~16% average of last 7 meals. Colostomy working. Pt is refusing all nutritional supplements. Has agreed to Proteinex; however, it is not charted that she is taking it. Will continue to provide food choices with selective menus and honor all food preferences. RDN following.
[2017-01-19 13:37] VITALS: BP 83/46
--- NOTE | 2017-01-19 14:00 | NUR ---
BOLUS OF 1MG GIVEN AT THIS TIME. DRESSING CHANGE PROVIDED TO LT HIP AND BILAT HEELS AND BUTTOCKS. PT HAD ME APPLY SANTYL TO BUTTOCKS WOUND. PT TOLERATED PROCEDURE WELL, DENIES ANY OTHER NEEDS AT THIS TIME. CALL LIGHT IN REACH, NAD NOTED, WILL CONTINUE TO MONITOR.
[2017-01-19 16:04] VITALS: BP 108/65
--- NOTE | 2017-01-19 17:13 | NUR ---
ADMINISTERED 25MG OF BENADRYL, PT C/O OF RT EYE HURTING AND STATED " EARLIER IT WAS DRAINING YELLOW DISCHARGE". EYE ASSESSED AT THIS TIME. ONLY NOTED REDNESS TO EYE, NO DRAINAGE NOTED. DR. BAL AT BEDSIDE TO ASSESS PT.
--- NOTE | 2017-01-19 18:35 | NUR ---
HUNG CEFEPIME IVPB AT THIS TIME. ALSO ADMINISTERED 1MG BOLUS FOR PAIN LEVEL OF 8/10. PT DENIES ANY OTHER NEEDS AT THIS TIME. CALL LIGHT IN REACH, NAD NOTED.
--- NOTE | 2017-01-19 19:30 | NUR ---
PT IN BED WITH HOB UP FOR COMFORT. WATCHING TV. NO O2. RIGHT CHEST INFUSAPORT. CONTACT ISOLATION. COLOSTOMY. UROSTOMY. ALERT & ORIENTED. DRESSING'S ON BUTTOCKS, LEFT HIP, AND HEELS ARE C/D/I. BED IN LOWEST POSITION AND CALL LIGHT WITHIN REACH.
--- NOTE | 2017-01-19 19:39 | NUR ---
DILAUDID PERSONAL ATTENDANT SYRINGE CHANGED AT THIS TIME. WASTED 2MG.
--- NOTE | 2017-01-19 19:40 | NUR ---
DILAUDID CEMENT TESTER ASSISTANT SYRINGE CHANGED AT THIS TIME. WASTED 2ML.
[2017-01-19 21:02] VITALS: BP 84/42
--- NOTE | 2017-01-19 21:35 | NUR ---
ADMINISTERED 1MG BOLUS FOR PAIN LEVEL OF 9/10. CL IN REACH.
[2017-01-20 00:30] VITALS: BP 89/49
--- NOTE | 2017-01-20 01:21 | NUR ---
ADMINISTERED 1MG OF DILAUDID BOLUS.
--- NOTE | 2017-01-20 05:38 | NUR ---
ADMINISTERED 1MG OF BOLUS FOR A PAIN LEVEL OF 9/10.
[2017-01-20 08:07] VITALS: BP 114/70
--- NOTE | 2017-01-20 09:30 | NUR ---
ALERT AND ORIENTED X4. RESTING IN BED. CONTACT ISOLATION CONTINUED. SHELTER MONITOR BOLUS 1mg OF DILAUDID GIVEN IV ORDERED FOR PAIN MANAGEMENT. 25mg BENADRYL GIVEN IV FOR SKIN IRRITATION ORDERED. DENIES ANY OTHER NEEDS. BED LOCKED AND LOW. CALL LIGHT IN REACH. TWO SIDERAILS UP. IN ROOM.
[2017-01-20 13:38] VITALS: BP 93/49
--- NOTE | 2017-01-20 19:58 | NUR ---
PT IN BED RESTING QUIETLY. BED IN LOW POSITION, CALL LIGHT WITHIN REACH. WILL CTM.
--- NOTE | 2017-01-20 21:32 | NUR ---
PT REQUESTED BOLUS DOSE OF DILAUDID FOR BREAKTHROUGH PAIN. PT GIVEN 1 MG BOLUS.
[2017-01-20 21:53] VITALS: BP 107/60
--- NOTE | 2017-01-21 01:41 | NUR ---
PT REQUESTED BOLUS DOSE OF DILAUDID. STATED SHE IS HAVING PAIN AND CANT GO TO SLEEP. 1 MG BOLUS DOSE GIVEN.
[2017-01-21 02:37] VITALS: BP 109/71
[2017-01-21 05:16] VITALS: BP 197/96; BP 93/47
[2017-01-21 09:29] VITALS: BP 94/54
[2017-01-21 11:40] VITALS: BP 81/45
[2017-01-21 15:31] VITALS: BP 88/50
--- NOTE | 2017-01-21 15:39 | NUR ---
ALERT AND ORIENTED X4. RESTING IN BED. RT CHEST INFUSAPORT DRESSING CHANGED. BENADRYL GIVEN IV ORDERED FOR SKIN IRRITATION. PAIN MANAGED WITH DILAUDID HOME SALES SERVICE PROFESSIONAL SET PER ORDER. DENIES ANY NEEDS. UROSTOMY BAG DRAINING BY GRAVITY. COLOSTOMY BAG CLEAN DRY INTACT. BED LOCKED AND LOW. CALL LIGHT IN REACH. ASSIST REPOSITIONING IN BED. TWO SIDERAILS UP.
--- NOTE | 2017-01-21 17:13 | NUR ---
ALERT AND ORIENTED X4Q. DILAUDID BOLUS 1mg IV GIVEN PER PATIENT REQUEST. DENIES ANY OTHER NEEDS. CONTINUE PLAN OF CARE AND SAFETY PRECAUTIONS.
--- NOTE | 2017-01-21 19:26 | NUR ---
DILAUDID TRAFFIC CONTROL OFFICER RENEWED BY ALEXEI LAWRENCE PER .
--- NOTE | 2017-01-21 19:28 | NUR ---
PT C/O RIGHT EYE. PT ASKS FOR A BOLUS. PT DENIES ANY OTHER NEEDS. NO S/S OF DISTRESS. PT IS AAO. BED LOW AND CALL LIGHT IN REACH. WILL CPOC
--- NOTE | 2017-01-21 20:59 | NUR ---
BOLUS GIVEN TO PT, PT C/O 10 PAIN. PT ALSO ASK FOR PRN BENADRYL. BOTH GIVEN, NEW SYRINGE OF HYDROMORPHONE PUT INTO SHADE BANDER. PT DENIES ANY OTHER NEEDS AT THIS TIME. STATES SHE IS GOING TO SLEEP. PT HAS NO S/S OF DISTRESS. WILL CPOC
[2017-01-21 21:32] VITALS: BP 134/70
--- NOTE | 2017-01-22 00:05 | NUR ---
PT REQUESTED ANOTHER BOLUS. STATES PAIN IS 8/10. PT C/O RIGHT EYE AND SAYS PUS IS COMING OUT OF EYE. TOLD PT IT COULD BE THE EYE DROPS I PUT IN HER EYE PREVIOUSLY. SHE STATES SHE THINKS ITS INFECTED. TOLD PT SHE SHOULD KEEP HER HANDS OUT OF HER EYE. SAID SHE SHOULD CONTINUE ANTIBIOTICS AND KEEP IT CLEAN AND IT WILL HEAL. SHE VERBALIZED UNDERSTANDING. PT DENIES ANY OTHER NEEDS. NO S/S OF DISTRESS. WILL CPOC
--- NOTE | 2017-01-22 01:42 | NUR ---
PT ASKING IF ITS TIME FOR ANOTHER BOLUS. INFORMED PT IT IS NOT AVALIBLE UNTIL AFTER 0305. PT DENIES ANY OTHER NEEDS. NO S/S OF DISTRESS. WILL CPOC
[2017-01-22 02:45] VITALS: BP 90/48
--- NOTE | 2017-01-22 04:19 | NUR ---
CHANGED SYRINGE IN [employer]MC STORAGE ARCHITECT/ GAVE A BOLUS. PT PAIN WAS 10/10. WILL NOW CHANGE PT DRSG.
--- NOTE | 2017-01-22 04:20 | NUR ---
CHANGED PT BOTTOM DRSG AND LEFT HIP DRSG. CLEANED BOTTOM WITH WOUND FAMILY PHYSICIAN AND PUT AN ABD PAD. ALL DRSG NOW CDI. CLEANED PT UP AND CHANGED GOWN AND LINEN. PT NOW CLEAN. REPOSITONED. PT HAS HEEL PROTECTORS ON. PT DENIES ANY NEEDS. NO S/S OF DISTRESS. WILL CPOC
[2017-01-22 04:42] VITALS: BP 121/65
--- NOTE | 2017-01-22 07:23 | NUR ---
BOLUS OF HYDROMORPHONE GIVEN. PT C/O 12/23 PAIN. ASKS FOR A BENADRYL SOON ITS AVALIBLE. PT DENIES ANY OTHER NEEDS. NO S/S OF DISTRESS. WILL CPOC
--- NOTE | 2017-01-22 07:42 | NUR ---
AM ROUNDING DONE WITH PATIENT RECEIVING ANOTHER PAIN MEDICATION BOLUS AT 0720 PER PREVIOUS NURSE. NS INFUSING TO RIGHT IP AT 10 CC/HR ALONG WITH RN CLINICAL DILAUDID FOR PAIN CONTROL. LEFT COLOSTOMY SEEN ALONG WITH RIGHT UROSTOMY (DEGROOT CATH INTO FREEDOM SITE). LEFT HIP AND BUTTOCK DRESSING SEEN C/D/I AND WAS CHANGED LAST SHIFT. BILATERAL ANKLE DRESSING SEEN C/D/I AND WILL BE CHANGED TODAY. ZOFRAN DRIP INFUSING AT 4.7 CC/HR ALSO WITH FLUIDS. IN CONTACT ISOLATION.
[2017-01-22 09:45] VITALS: BP 108/63
--- NOTE | 2017-01-22 11:30 | NUR ---
NEW PIECE DYE WORKER DILAUDID SYRINGE CHANGED OUT. BOLUS OF 1 MG GIVEN PER PATIENT REQUEST.
[2017-01-22 12:30] VITALS: BP 95/49
--- NOTE | 2017-01-22 13:19 | OP ---
PATIENT NAME: SANTANA PADILLA MEDICAL RECORD: [id number] :[birth year] LOCATION:D. D.[id number] ADMISSION DATE:01/04/17 SURGEON: RENNY SUNG MD DATE OF OPERATION: 01/16/2017 PREOPERATIVE DIAGNOSES: 1. Osteomyelitis of the left hip and acetabulum. 2. Chronic paraplegia, C6-C7. 3. Chronic wound breakdown. POSTOPERATIVE DIAGNOSES: 1. Osteomyelitis of the left hip and acetabulum. 2. Chronic paraplegia, C6-C7. 3. Chronic wound breakdown. PROCEDURE: Girdlestone arthroplasty of the left hip. SURGEON: Renny Sung MD ANESTHESIA: General. INTRAOPERATIVE COMPLICATIONS: Essentially none. The patient was a very hard Girdlestone to do because she had essentially flexed into a very anteverted and a flexed position. Please note that cultures were taken. The bone was sent for decal and permanent specimen. Estimated blood loss was approximately 700 cc. OPERATIVE SUMMARY IN DETAIL: After obtaining the appropriate preop orthopedic surgery consents as well as anesthetic consultation, evaluation and clearance, the patient was brought to the operating room and placed on the operating table in supine position. After general laryngeal mask was administered, the patient was placed in a right lateral decubitus position. All pressure points were well padded to include down leg peroneal pad as well as axillary roll. The patient was held firmly to the operating table using vacuum pack suction system. Right lower extremity and hip were prepped and draped in routine sterile fashion. Curvilinear incision made over the greater trochanter, taken down the level of the greater trochanter, and release of the residual gluteus medius and minimus were taken down to the femoral neck, fluoroscopy was utilized for verification of the appropriate location. At this point, the femoral neck was dislocated and excised in its entirety. Cultures were taken off the scrapings of the acetabular residual cartilage. Copious curettage was then followed by pulsatile lavage irrigation. Having completed this, the residual IT band was closed with #1 Vicryl followed by #1 Vicryl, 2-0 Vicryl, and skin ines for final skin closure. Sterile dressings were applied. The patient was awakened and taken to recovery room in stable condition. Two units of blood were given both intra and postoperatively. All final needle and sponge counts were correct. TRANSINT:[id number] Voice Confirmation ID: [id number] DOCUMENT ID: [id number] 01/21/2017 Edited to correct date of service, dmm. OPERATIVE REPORT [id number] SANTANA PADILLA MD, RENNY SANDOVAL at 1319 CC: [id number] DICTATION DATE: 01/16/17 1655 YIELD ENGINEER: 01/16/172022 ADM IN [facility] [address] [id number]
--- NOTE | 2017-01-22 13:34 | NUR ---
SAW FLOWSHEET WITH TEMP. 101.3. WAS NOT INFORMED OF THIS. 650 MG TYLENOL GIVEN PER ORDERES. PATIENT WANTING MORE COLA, 2 CANS GIVEN PER REQUEST.
--- NOTE | 2017-01-22 14:11 | NUR ---
DRESSINGS TO BILATERAL ANKLES CHANGED. INNER RIGHT ANKLE WITH DRY WOUND BED. ON OUTER RIGHT ANKLE IS A DARK AREA (DEEP TISSUE INJURY) WITH SOME REDNESS SEEN TO IT. ALSO LEFT OUT ANKLE WOUND CHANGED WITH DRY WOUND BED. TOP OF LEFT FOOT/ANKLE AREA WITH THE SAME DARK AREA (DEEP TISSUE INURY) AND REDNESS AROUND THIS AREA. MAXORB PLACED OVER THESE DARK AREAS, SANTLY USED IN WOUND BEDS, COVERED ALL WITH CLEAN 4 X 4, MARIAH, AND MEDIPORE TAPE. DATED. INSTRUCTED IN PATIENT TO NOT USE THE PINK FOAM BOOTIES THAT WERE ON HER.
--- NOTE | 2017-01-22 14:19 | NUR ---
Nutrition Follow Up: Pt is eating 9% meal avg on a regular diet. She is receiving blueberry yogurt, whole milk x 2 and CIB on all trays. Pt has refused all other supplements. Meds and labs reviewed. Pt would benefit from nutritional support via PEG as she continues not meeting est nutritional needs. Rec continue current diet. Will continue to honor food preferences. Rec an appetite stimulant. RD following.
--- NOTE | 2017-01-22 16:36 | NUR ---
REQUESTING BOLUS OF PAIN MEDICATION PAST RIGHT UPPER ARM MIDLINE PLACED. GIVEN.
[2017-01-22 16:51] VITALS: BP 83/32
--- NOTE | 2017-01-22 17:19 | NUR ---
PATIENT STATES THAT SHE IS NOT GOING TO EAT HER SUPPER TRAY FROM DIETARY, SHE REPORTS THAT SHE IS GOING TO ORDER A PIZZA.
--- NOTE | 2017-01-22 19:20 | NUR ---
PT RESTING IN BED. NS AT 10, ZOFRAN AT 4.7, METAL FABRICATOR HELPER HYDROMORPHONE INFUSING TO RIGHT UPPER ARM MIDLINE. PT DENIES ANY NEEDS AT THIS TIME. NO S/S OF DISTRESS. NAME AND DATE PLACED ON BOARD. WILL CPOC
[2017-01-22 20:00] VITALS: BP 98/49
--- NOTE | 2017-01-22 20:17 | NUR ---
BOLUS OF HYDROMORPHONE REQUESTED. PT ASLO ASKS FOR BENADRYL. PT DENIES ANY OTHER NEEDS. PT ON PHONE ORDERING FOOD. NO S/S OF DISTRESS. WILL CPOC
--- NOTE | 2017-01-22 20:19 | NUR ---
COLOSTOMY BAG CHANGED. PT HAS MODERATE AMOUNT OF LOOSE STOOL. DENIES ANY HELP CHANGING BED. NO OTHER NEEDS. WILL CPOC
[2017-01-23] VITALS: BP 108/68
--- NOTE | 2017-01-23 00:27 | NUR ---
BOLUS OF HYDROMORPHONE GIVEN TO PT. PT AAO. SITTING UP IN BED. BP IS 108/68 HR 120. PT HAS NO S/S OF DISTRESS OR OVER SEDATION. PT IS INFORMED THAT SHE IS NPO UNTIL AFTER HER PROCEDURE. EDUCATED ON CVL. CONSENTS SIGNED. PT DENIES ANY QUESTIONS OR CONCERNS. DENIES ANY OTHER NEEDS. WILL CPOC
--- NOTE | 2017-01-23 03:30 | NUR ---
BOLUS REQUESTED. BP 120/82. C/O SEVERE PAIN AND STARTS CRYING AND GRABBING THE RAIL TO HER RIGHT AND SHAKING. HEAT PACK GIVEN TO PT TO DECREASE PAIN. PT DENIES ANY OTHER NEEDS AT THIS TIME. NO S/S OF DISTRESS. WILL CPOC
--- NOTE | 2017-01-23 05:48 | NUR ---
PT HAD A LARGE BM, NEW COLOSTOMY PUT ON AFTER PT CLEANED. SAME NEW BAG EARLIER. PT NEVER CHANGED IT WHEN GIVEN TO HER. LINEN AND GOWN CHANGED. CLEANED PT UP. PT DENIES ANY OTHER NEEDS. NO S/S OF DISTRESS. WILL CPOC
--- NOTE | 2017-01-23 06:48 | NUR ---
BOLUS GIVEN. PT LAYING ON RIGHT SIDE. PT DENIES ANY NEEDS. STATES SHE WISHES SHE COULD HAVE A BENADRYL. INFORMED PT THATS NOT DUE TILL AFTER 729. PT HAS NO S/S OF DISTRESS. WILL CPOC
--- NOTE | 2017-01-23 07:30 | NUR ---
IN CONTACT ISOLATION. ON ROOM AIR. NPO FOR SURGERY TODAY. RIGHT IP SEEN WITH SALINE LOCK AND INTACT DRESSING. RIGHT MIDLINE SEEN WITH NS INFUSING AT 10 CC/HR, ZOFRAN DRIP AT 4.7 CC/HR, AND PILE DRIVING SETTER DILAUDID. LEFT COLOSTOMY, RIGHT UROSTOMY DRAINING TO DEGROOT BAG. DRESSING TO LEFT HIP AND BUTTOCK, INTACT. BILATERAL ANKLE DRESSINGS SEEN INTACT. WILL MONITOR.
[2017-01-23 08:38] VITALS: BP 92/53
--- NOTE | 2017-01-23 08:42 | NUR ---
COMPLAINTS OF "ITCHING". NO RASH SEEN. REQUEST BENADRLY 25 MG GIVEN ORDERED. NPO FOR SURGERY.
--- NOTE | 2017-01-23 10:17 | NUR ---
REQUESTING BOLUS OF PAIN MEDICATION PAST SRYRINGE CHANGED. 1 MG GIVEN WITH Wolfgang EGAN RN IN ROOM WITH ME.
--- NOTE | 2017-01-23 10:21 | NUR ---
BILATERAL HIP DRESSINGS CHANGED ALONG WITH LINEN CHANGE.
[2017-01-23 12:30] VITALS: BP 104/51
--- NOTE | 2017-01-23 12:49 | NUR ---
DRESSINGS TO BILATERAL ANKLES CHANGED. ON RIGHT 2ND TOE, THERE IS NO NAIL AND IT IS BLEEDING. I ASKED THE PATIENT WHAT HAPPEN TO IT AND SHE SAID IT WAS LIKE THIS. I TOLD HER IT WAS NOT LIKE THIS YESTERDAY. MAXORB AND 4 X 4 PLACED OVER GREAT TOE AND 2ND TOE. WRAPPED WITH MARIAH AND TAPED. ALL DRESSING ARE DATED.
--- NOTE | 2017-01-23 13:18 | NUR ---
SURGERY TO CALL FOR PRE-OP. I CALLED AND TALKED TO TONI IN SURGERY AND TOLD HER I HAD NO ORDERS. SHE STATES THAT SHE WILL HAVE THEM PUT SOME ORDERS IN.
--- NOTE | 2017-01-23 13:25 | NUR ---
TO OR VIA BED.
--- NOTE | 2017-01-23 16:15 | NUR ---
TO RIGHT CVL, I FLUSHED EACH LUMEN THEY WERE NOT CLAMPED AND PLACED ORGANGE CAPS ON THEM.
[2017-01-23 16:20] VITALS: BP 95/45
--- NOTE | 2017-01-23 16:21 | NUR ---
1615-RECEIVED VIA BED BACK FROM RECOVERY ROOM WITH RIGHT CVL, FLUSHED WELL AND FLUIDS AND ZOFRAN RUNNING. ASKED PATIENT TO HOLD OFF ON USING SHREDDING MACHINE KNIFE CHANGER UNTIL BLOOD PRESSURE UP. REPORTS TO UNDERSTANDING.
--- NOTE | 2017-01-23 17:42 | NUR ---
NOTIFIED DR LAI OF B/P RANGING FROM /[phone]. NEW ORDERS RECEIVED.
--- NOTE | 2017-01-23 18:18 | NUR ---
PATIENT IS PUSHING THE VITAL SIGN MACHINE TO CHECK HER OWN BLOOD PRESSURE WHICH IS MESSING UP OWN TIMES POST OP. I AGAIN INSTRUCTED THE PATIENT TO NOT DO THIS BUT SHE STATES THAT SHE IS GOING TO BE CHECKING IT.
--- NOTE | 2017-01-23 18:50 | NUR ---
WENT ION TO GIVE THE BENADRYL PER PATIENT REQUEST AND FOUND THE NORMAL SALINE AND OPEN HEARTH WORKER, ZOFRAN DRIP INFUSING TO THE CVL. I HAD NOT PLACED IT THERE AND THE ROLLER CLAMP WAS NEXT TO THE CVL, I ASKED THE PATIENT WHO DID THIS AND SHE STATES "IT MUST OF BEEN THAT WAY WHEN I CAME BACK FROM SURGERY". I INFORMED HER THAT IT WAS NOT THAT WAY I SALINE LOCK'D HER CVL WHEN SHE CAME BACK FROM SIURGERY. I ASKED HER TO PLEASE DO NOT TOUCH THE LINES AGAIN.
--- NOTE | 2017-01-23 19:30 | NUR ---
BED SIDE REPORT RECEIVED IN DOORWAY. PT HAS NS @ 10, ZOFRAN AT 4.7 AND A CHEMIST ENZYMES PUMP INFUSING TO RIGHT UPPER ARM MIDLINE. PT HAS A NEW CVL IN RIGHT NECK. PT BED LOW AND CALL LIGHT IN REACH. PT DENIES ANY NEEDS AT THIS TIME. NO S/S OF DISTRESS. WILL CPOC
[2017-01-23 20:00] VITALS: BP 100/58; BP 140/60
--- NOTE | 2017-01-23 23:56 | NUR ---
PT HAS A TEMP OF 100.3 ORAL. TYLENOL GIVEN. PT C/O PAIN IN ALL OF LEFT ARM AND LEFT NECK. PAIN IN BACK. PT DENIES ANY NEEDS AT THIS TIME. NO S/S OF DISTRESS. WILL CPOC
[2017-01-24] VITALS: BP 75/33; BP 91/53
--- NOTE | 2017-01-24 04:27 | NUR ---
RIGHT UPPERARM MIDLINE OUT. PT CALLED ME TO ROOM. WHEN WALKING IN PT HELD RIGHT ARM OUT AND SAID "IT CAME OUT!! I DIDNT TAKE IT OUT, I DONT KNOW WHAT HAPPENED. IT DIDNT FEEL GOOD COMING OUT SO WHY WOULD I DO IT ON PURPOSE!!" THIS WAS ALL SAID EVEN THOUGH I DIDNT ASK WHAT HAPPENED YET OR ASK IF SHE DID IT. PT HAD BEEN MESSING WITH THE BANDGE ALL NIGHT. PULLING UP CORNERS AND SAYING IT WAS COMING OFF BECAUSE OF SWEAT. WHEN I CAME IN ROOM TO FIND THE MIDLINE OUT PT HAD UNHOOKED THE IV PUMP FROM THE MIDLINE. I TURNED OFF ALL PUMPS. REPORTED TO CHARGE NURSE. IN MY OPINION PT PULLED OUT MIDLINE; ALTHOUGH, I CAN NOT PROVE IT. I FEEL SHE DID IT TO USE THE CVL ON HER NECK. PT ALSO CHANGING COLOSTOMY BAG BY HER SELF. GETTING CLEAN LINEN. PT USES 3 BLANKETS WHICH ARE CHANGED EVERY DAY. ( OR AT LEAST THE LAST 3 NIGHTS BRIANA WORKED WE HAVE GOT NEW ONES) PT CLEANED AND CLEAN LINEN AND GOWN NOW ON PT. PT SITTING UP IN BED. DENIES ANY NEEDS AT THIS TIME. NO S/S OF DISTRESS. WILL CPOC
--- NOTE | 2017-01-24 07:30 | NUR ---
REPORT RECEIVED. PT DENIES NEEDS AT THIS TIME, RR EVEN AND UNLABORED. WILL CTM.
[2017-01-24 07:46] VITALS: BP 90/42
--- NOTE | 2017-01-24 10:00 | NUR ---
PAGED DR. NAIR REGARDING USE OF CVL. IN REPORT, THE OFF GOING NURSE EXPLAINED THAT WE ARE NOT TO USE THE CVL EXCEPT FOR BLOOD DRAW. WILL AWAIT DR. TREADWELL CALL.
--- NOTE | 2017-01-24 10:15 | NUR ---
PT EXPRESSED EXTREME AGITATION OVER HER MORPHINE VENDOR MANAGER BEING D/C. GAVE PRN PAIN MEDS. PAGED DR. NAIR REGARDING USE OF CVL. WE ARE TO BE USING CVL FOR LABS ONLY, NOT FOR IV ABX. NO OTHER ACCESS AT THIS TIME. WILL AWAIT CALL BACK.
[2017-01-24 11:23] VITALS: BP 76/32
--- NOTE | 2017-01-24 12:00 | NUR ---
PAGED DR. NAIR AGAIN REGARDING CVL USAGE. WILL AWAIT CALL BACK.
--- NOTE | 2017-01-24 13:32 | NUR ---
INITIATED PTS IVPB ANBX AND NS TO RUN KVO BEHIND IT. INFUSING VIA R.IJ CVL, VIA WHITE LUMEN OF TRIPLE LUMEN. BIOPATCH IN PLACE, DRSG ADHERED TO SKIN AND SWAB CAPS IN USE. DISCARDED ALL PREVIOUS TUBING AND HUNG NEW TUBING AND DATED IT ALL PER POLICY WITH SWAB CAPS ON ALL ENDING OF TUBING. WASTED PTS DILAUDID FROM ENVIRONMENTAL WEB CRAWLER PUMP IT WAS D/C EARLIER THIS AM. APPARENTLY DURING SHIFT REPORT IT WAS REPORTED FROM [facility] THAT WE WERENT SUPPOSE TO USE TRIPLE LUMEN CVL OR THAT THEY WERE UNSURE HOWEVER NO ORDERS ARE DOCUMENTED OR REASONING ON WHY, XRAY CONFIRMED PLACEMENT AND PT HAS NO OTHER ACCESS AND REFUSES TO BE STUCK, PAGED X3 AND NO RESPONSE SO WENT ON WITH PTS TX IF PROBLEM ARISES OR HE CALLS BACK STATING NO USE OF CVL THEN ORDER WILL BE PLACED AND WE WILL RESORT TO OTHER OPTIONS IF ABLE. PT VERBALIZED UNDERSTANDING AND STATES SHE WILL NOT TOUCH HER R.IJ AND CALL IF SHE NEEDS ANYTHING. CL IN REACH, BED IN LOWEST, SIDE RAILS X2. WILL CPOC.
--- NOTE | 2017-01-24 15:35 | NUR ---
HERE AND DISCUSSED CVL QUESTIONS AND THERE ARE NO CONTRAINDICTIONS OR REASONS SO WE WILL CONTINUE USE.
[2017-01-24 15:40] VITALS: BP 82/45
--- NOTE | 2017-01-24 18:15 | NUR ---
PT RESTING QUIETLY, RR EVEN AND UNLABORED. FAMILY AT BEDSIDE. PT DENIES NEEDS AT THIS TIME. ASKED PT IF SHE WANTED ME TO CHANGE HER DRESSINGS, BUT SHE REPORTS SHE WOULD RATHER HAVE DRESSING CHANGED LATER TONIGHT. WILL PASS ALONG IN SHIFT REPORT AND GIVE REPORT ON PT CONDTION FOR THE DAY.
--- NOTE | 2017-01-24 19:58 | NUR ---
PT RESTING IN BED. SHE HAS AN ISOLATED BEHAVIOR TODAY. I ASKED IF HER DAY WAS OK AND SHE SAID NO. PT DINNER TRAY HAS NOT BEEN TOUCHED AND SHE SAID SHE DOESNT WANT ANY FROM THE TRAY. THERE IS A SONIC MILKSHAKE ON TABLE. IN REPORT I WAS TOLD HER FAMILY VISITED TODAY. PT DENIES ANY NEEDS. NO S/S OF DISTRESS. BED LOW AND CALL LIGHT IN REACH. WILL CPOC
[2017-01-24 20:00] VITALS: BP 116/62
[2017-01-25] VITALS: BP 98/62
--- NOTE | 2017-01-25 05:30 | NUR ---
PT IN BED RESTING. ROOM VERY ODOROUS. PT COLOSTOMY BAG FULL AND CAME OFF. UROSTOMY LEAKING AT STOMA. CLEANED PT, GAVE HER A BATH. PUT ON A NEW GOWN. CHANGED LINEN. A NEW SORE ON RIGHT HEEL NOTED, AREA NON BLANCHABLE AT VERY BOTTOM OF HEEL. AROUND THAT AREA IS BLANCHABLE. PUT FOOT ON A BOOTIE ONCE I WAS DONE WITH PT AND HAD HER GET OFF OF HER RIGHT SIDE FOR A WHILE. ALSO PUT A PILLOW INBETWEEN LEGS. CHANGED PT LEFT HIP DRSG. INCISION HAS DRYED FLUID ON IT, LOOSE JENNIFER AND IT IS PINK AND RED. SOME AREAS ON INCISION ARE APPROXIMATAED. CLEANED WITH WOUND DRYING CAN WORKER AND PUT DRSG. BUTTOCK CLEANED WITH WOUND DRYING CAN WORKER. WOUND LOOKS WORSE THAN WHEN I CHANGED IT LAST WEEK. NEEDS TO BE ADDRESSED BY A WOUND CARE NURSE. SEVERAL AREAS HAVE TUNNELING, DRAINAGE IS PURLENT. PACKED WITH 4X4 GAUZE MOIST WITH DAKINS IN WOUND BEDS. 4X4 DRY GAUZE ON TOP LAYERED WITH 2 ABD PAD SIDE BY SIDE. AND TAPED DOWN. VAGINA HAS EDEMA, UPPER THIGH ON LEFT WHERE HER GLUDIAL FOLD SHOULD BE. PT HAS HAD PERCOCET, REPOSITIONED IN BED. PT DENIES ANY OTHER NEEDS AT THIS TIME. NO S/S OF DISTRESS. DID NOT CHANGE ANKLE DRSG'S, DRSG CDI, SOME DRAINAGE SHOWING THROUGH. WILL CPOC
--- NOTE | 2017-01-25 09:30 | NUR ---
AM ROUNDS - PT IN BED AND APPEARS TO BE SLEEPING AT THIS TIME WITH EQUAL AND NON LABORED BREATHING. PT IS ON ROOM AIR. CVL IN RIGHT NECK. BED AT LOWEST POSITION. CALL HOFF IN USE/REACH. SIDE RAILS UP0 X2. WILL CONTINUE TO MONITOR
[2017-01-25 12:04] VITALS: BP 85/40
[2017-01-25 16:12] VITALS: BP 89/52
--- NOTE | 2017-01-25 18:59 | NUR ---
PT IN BED. PT HAD AN EPISODE OF VOMITING TODAY, GREEN. NO URINE OUTPUT, DR. GOFF NOTIFIED. INCRASED NS TO 125CC/HR. WILL CONITNUE TO MONITOR
[2017-01-25 20:00] VITALS: BP 103/20
[2017-01-26] VITALS: BP 97/63
[2017-01-26 03:39] LABS: BASOPHILS 0.1 % (0-2); EOSINOPHILS 0.5 % (0-7); HEMATOCRIT 28.8 % (36.0-48.0); HEMOGLOBIN 8.7 g/dL (12-16); IMMATURE GRANULOCYTES 0.7 % (0-5); LYMPHOCYTES 28.6 % (15-50); MCH 24.4 pg (26.0-34.0); MCHC 30.2 g/dL (31.0-37.0); MCV 80.9 fL (80.0-100.0); MEAN PLATELET VOLUME 9.1 fL (7.4-10.4); MONOCYTES 6.7 % (2-11); NEUTROPHILS 63.4 % (40-80); PLATELET COUNT 311 10x3/uL (130-400); RBC 3.56 10x6/uL (4.00-5.40); RDW 17.5 % (11.5-14.5); WBC 8.9 10x3/uL (4.8-10.8)
[2017-01-26 03:54] LABS: ALBUMIN 1.3 g/dL (3.4-5.0); ALKALINE PHOSPHATASE 112 U/L (46-116); ALT (SGPT) 21 U/L (10-68); BILIRUBIN - TOTAL 0.21 mg/dL (0.2-1.3); CALC OSMOLALITY 274 mosm/kg (275-300); CALCIUM 7.8 mg/dL (8.5-10.1); CARBON DIOXIDE 27.2 mmol/L (21.0-32.0); CHLORIDE - SERUM 105 mmol/L (98-107); CREATININE - SERUM 0.6 mg/dL (0.6-1.3); GLUCOSE 88 mg/dL (74-106); POTASSIUM - SERUM 3.5 mmol/L (3.5-5.1); PROTEIN - SERUM 6.1 g/dL (6.4-8.2); SODIUM 140 mmol/L (136-145); UREA NITROGEN 5 mg/dL (7-18); eGFR NON AFRICAN AMERICAN > 90 mL/min (90-120)
[2017-01-26 04:00] VITALS: BP 97/50
--- NOTE | 2017-01-26 06:13 | NUR ---
PT IS REFUSING DRESSING CHANGE ON THIS SHIFT PT STATES "I WANT MY DRESSINGS TO BE CHANGED DURING THE DAY TIME." WHEN ASKED IF I COULD CHANGE HER DRESSING PT STATES "I WANT A GIRL NURSE."
--- NOTE | 2017-01-26 07:44 | NUR ---
RECIEVED REPORT ON PATIENT, PATIENT IS RESTING, AROUSES TO VOICE. PATIENT HAS A R IJ CVL WITH NS INFUSING AT 125ML/HR. PATIENT HAS A COLOSTOMY NOTED TO LEFT SIDE, AND A UROSTOMY NOTED TO RIGHT SIDE OF ABDOMEN. PATIENT DENIES ANY NEEDS AT THIS TIME. BED IS LOW AND LOCKED. WILL CONT TO MONITOR PATIENT. CPOC
[2017-01-26 08:48] VITALS: BP 90/54
--- NOTE | 2017-01-26 09:30 | NUR ---
MORNING MEDICATIONS GIVEN PER EMAR. LASIX HELD DUE TO BP. PATIENT IS RESTING, PATIENT IS DIAPHORETIC, TEMP IS 97.7, HR 86, BP 90/54, PATIENT STATES SHE JUST DOES NOT FEEL WELL. DR NAIR NOTIFIED. WILL CONT TO [facility] PATIENT. CPOC
--- NOTE | 2017-01-26 10:30 | NUR ---
PATIENT IS SLEEPING AT THIS TIME, NAD NOTED. CHEST RISES AND FALLS EQUALLY. PATIENT AROUSES TO VOICE. DEIES ANY NEEDS. WILL CONT TO MONITOR. CPOC
--- NOTE | 2017-01-26 11:12 | NUR ---
Patient Name: SANTANA PADILLA Encounter No: [id number] : 1990 Primary Insurance: BLUE CROSS FEP Anticipated DC Date: Planned Disposition: Nursing Facility [facility] External Planned Provider: [facility], SKILLED BED DCP follow-up note: CM CALLED [facility], , SPOKE TO [place] AND TRUNG, DISCUSSED IV ANTIBIOTICS THAT WILL BE NEEDED ON ALF BASIS; CM FAXED HOSPITAL UPDATE TO [facility] AT [phone]. CM WAITING DETERMINATION IF [facility] CAN MEET CURRENTLY PRESCRIBED ANTIBIOTIC NEED IN FACILITY. FOR DISCHARGE, NURSE REPORT TO BE CALLED TO [facility], , FAX DISCHARGE INFORMATION TO [facility] AT [phone]. AMBULANCE TRANSPORT Order Processing Manager: Zachary Geiger
--- NOTE | 2017-01-26 12:00 | NUR ---
PATIENT STILL REFUSING DRESSINGS TO BE CHANGED, WANTING TO REST AND WAIT UNTIL THIS AFTERNOON. INFORMED PATIENT DRESSINGS NEEDED TO BE CHANGED, AND SHE STATED SHE KNOWS, WE CAN CHANGE IN A LITTLE BIT. WILL CME BACK. CPOC
[2017-01-26 12:48] VITALS: BP 95/50
--- NOTE | 2017-01-26 14:30 | NUR ---
PATIENT C/O ITCHING, BENADRYL GIVEN IV 25MG. CPOC
--- NOTE | 2017-01-26 16:18 | NUR ---
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 Current tx is dakins solution wet to dry dressings. These wounds have improved considerably. Left groin is still being treated with maxorb ag. It too is healing. Left lateral ankle has healing stage 4 pressure injury. Left heel has 4.5cm x 4.5cm red / nonblanchable area (stage 1) Left great toe 1cm x 1cm (stage 1) Left upper foot 2cm x 2cm blister. Left hip surgical incision has ines intact. No redness or odor. Mepilex AG is being applied. Right lateral ankle healing stage 4 . Right heel has non-blanchable 1cm x 1cm (medial) Right medial ankle 1cm x 1cm healing stage 3 pressure injury. Santyl ointment is being applied to ankles (L lateral, R lateral, R medial) Pt is assisting with turning herself q2h. Wound care will continue monitoring.
--- NOTE | 2017-01-26 16:30 | NUR ---
DRESSINGS CHANGED PER WOUND CARE. SEE WOUND CARE NOTE. PATIENT DENIES ANY NEEDS AT THIS TIME. CPOC
[2017-01-26 16:50] VITALS: BP 125/68
[2017-01-26 18:08] LABS: AEROBE ID Final report (())
--- NOTE | 2017-01-26 18:19 | NUR ---
PATIENT RESTING AT THIS TIME, AROUSES TO VOICE, INFORMED PATIENT THAT THE SHIFT IS ALMOST OVER, ASKED IF THERE WAS ANYTHING I COULD DO BEFORE I LEAVE, DENIES ANY NEEDS. CPOC
--- NOTE | 2017-01-26 20:00 | NUR ---
ROUNDING NOTE: PT LAYING IN BED ON HER PHONE AT THE CHANGE OF SHIFT. PT IS A,A,OX3. PT IS ON RA, HAS NS RUNNING AT 125 CC/HR VIA RIGHT NECK CVL. REMAINS ON CONTACT ISOLATION FOR ESBL IN URINE. PT W/ RIGHT UROSTOMY TO DEGROOT BAG AND LEFT COLOSTOMY SELF CARE. SHE IS ALSO SELF CARE FOR T&P, BUT NEEDS ENCOURAGEMENT TO DO SO. PT HAS STAGE 4 SACRAL PRESSURE ULCER. SCDS ON. PT REQUESTING IV BENADRYL FOR ITCHING, WILL GIVE PER MD ORDER. PT IS AFEBRILE W/ VSS, WILL CONT TO MONITOR.
[2017-01-26 22:46] VITALS: BP 93/61
[2017-01-27 05:05] VITALS: BP 109/71
--- NOTE | 2017-01-27 06:23 | NUR ---
PT HAS BEEN AWAKE MOST OF THE NIGHT. SHE HAS BEEN MEDICATED WITH IV BENADRYL TWICE AND WITH PAIN MEDICINE PER REQUEST. PT HAS REMAINED AFEBRILE WITH STABLE VITAL SIGNS. NO CHANGES IN PATIENT STATUS. WILL CONT TO MONITOR.
--- NOTE | 2017-01-27 07:15 | NUR ---
RECIEVED REPORT ON PATIENT, PATIENT IS ALERT AND ORIENTED AT THIS TIME. PATIENT HAS A RIGHT IJ CVL WITH NS AT 125ML/HR. PATIENT C/O OF ITCHING, WILL GIVE BENADRYL. PATIENT DENIES ANY OTHER NEEDS AT THIS TIME. BED LOW AND LOCKED. CALL LIGHT IN REACH. CPOC
[2017-01-27 08:00] VITALS: BP 92/51
--- NOTE | 2017-01-27 09:03 | NUR ---
PATIET LAYING IN BED WITH EYES CLOSED. AROUSED EASILY WHEN SPOKEN TO. MORNING MEDS GIVEN. NO REQUESTS AT THIS TIME. CALL LIGHT IN REACH. CPOC.
--- NOTE | 2017-01-27 09:40 | OP ---
PATIENT NAME: SANTANA PADILLA MEDICAL RECORD: [id number] :[birth year] LOCATION:D. D.2113 ADMISSION DATE:01/04/17 SURGEON: KEYANA COY MD DATE OF OPERATION: 01/23/2017 PREOPERATIVE DIAGNOSES: 1. Candidemia. 2. Rule out port infection. POSTOPERATIVE DIAGNOSES: 1. Candidemia. 2. Rule out port infection. PROCEDURE: 1. Insertion of right internal jugular triple lumen central venous catheter. 2. Removal of right-sided subcutaneous port and vascular catheter. SURGEON: Keyana Coy MD MANAGER HOME HEALTHCARE: None. BLOOD LOSS: Minimal. ANESTHESIA: General. COMPLICATIONS: None. The risks, possible complications and alternatives to procedure were explained to the patient. She elects to proceed. The patient has a midline on the right. She states that it hurts. She would like to have a central line placed. OPERATIVE COURSE: The patient was conveyed to the operating room electively on 01/23/2017. General anesthesia was induced by the anesthesia staff. The right neck and right upper chest were sterilely prepped and draped. I percutaneously accessed the right internal jugular vein easily. A guidewire passed easily. A small skin amara was accomplished. A vessel dilator was used to dilate the subcutaneous tract. A 16-cm triple lumen central venous catheter was inserted to the hub. It was sutured in place times 3. All lumens flushed easily and aspirated dark, nonpulsatile blood. Attention was then turned to removal of the port and vascular catheter. Through the use of double curvilinear incisions, I excised the scar. I dissected down to the port pocket. I entered the port pocket. I was able to deliver the port. I cut the Prolene sutures and removed them. Cultures were obtained in the port pocket. No purulence and no fluid was identified in the port pocket. This port pocket, which was a pseudobursa was cauterized with electrocautery. A 3-0 Vicryl was then placed around the vascular tract into the central venous system. The port and the vascular catheter were removed in their entireties. I then tied down on the 3-0 Vicryl suture. I then ligated the fibrous track to the vascular system with a [id number] 3-0 Vicryl. The subdermis was approximated with interrupted 3-0 Vicryls. The skin was approximated with interrupted 3-0 Vicryls with some gaps left to allow any pus to drain should the subcutaneous pocket become purulent. A sterile dressing was applied. OPERATIVE REPORT [id number] SANTANA PADILLA The patient was then extubated and conveyed to the post-anesthesia care unit where she was in stable condition. TRANSINT:[id number] Voice Confirmation ID: [id number] DOCUMENT ID: [id number] KEYANA COY MD at 0940 CC: Eve ALBERTO and NONI NAIR MD [id number] DICTATION DATE: 01/23/17 1527 REVIEW NURSE: 01/23/17 1630 ADM IN [facility] [address] [place] [address]
--- NOTE | 2017-01-27 11:00 | NUR ---
PATIENT RESTING, MAXIPIME GIVEN. PATIENT AROUSES TO VOICE, DENIES ANY NEEDS AT THIS TIME. BED LOW AND LOCKED. CPOC
[2017-01-27 12:00] VITALS: BP 107/60
--- NOTE | 2017-01-27 12:30 | NUR ---
PATIENT IS RESTING, DENIES ANY NEEDS. CPOC
--- NOTE | 2017-01-27 13:46 | NUR ---
PATIENT SITTING UP IN BED, AWAKE AND ALERT. NO NEEDS AT THIS TIME, NAD NOTED. CPOC.
--- NOTE | 2017-01-27 13:52 | NUR ---
Nutrition follow-up: Pt receiving a regular diet. RDN's have gotten pt everything that she has requested and she is still not eating. Family is bringing in some food for pt; not sure how much pt is eating. Labs reviewed. Wounds appear to be worse per nursing. Recommend PEG tube placement and tube feeding started to meet pts increased nutritional needs if medically feasible and pt, physician agree. RDN following.
--- NOTE | 2017-01-27 14:41 | NUR ---
PATIENT ALERT AND ORIENTED AT THIS TIME, WATCHING TV. DENIES ANY NEEDS AT THIS TIME. WILL CONT TO MONITOR. CPOC
[2017-01-27 15:39] VITALS: BP 106/59
--- NOTE | 2017-01-27 15:57 | NUR ---
PERCOCET GIVEN FOR PAIN 6/10 IN HER BACK. WILL CONT TO MONITOR
--- NOTE | 2017-01-27 16:45 | NUR ---
WOUND CARE DONE PER ORDER. PATIENT DENIES ANY NEEDS. CPOC
--- NOTE | 2017-01-27 18:15 | NUR ---
PATIENT NOT WANTING TO EAT DINNER, STATES SHE DOES NOT HAVE AN APPETTITE. AT THIS TIME. STATES SHE MAY ORDER SOMETHING LATER. PATIENT DENIES ANY NEEDS. CPOC
[2017-01-27 22:54] VITALS: BP 117/65
[2017-01-28 04:27] VITALS: BP 117/61
[2017-01-28 05:22] LABS: BASOPHILS 0.2 % (0-2); EOSINOPHILS 0.4 % (0-7); HEMATOCRIT 28.5 % (36.0-48.0); HEMOGLOBIN 8.7 g/dL (12-16); IMMATURE GRANULOCYTES 2.5 % (0-5); LYMPHOCYTES 25.8 % (15-50); MCH 24.6 pg (26.0-34.0); MCHC 30.5 g/dL (31.0-37.0); MCV 80.7 fL (80.0-100.0); MEAN PLATELET VOLUME 9.4 fL (7.4-10.4); MONOCYTES 5.3 % (2-11); NEUTROPHILS 65.8 % (40-80); RBC 3.53 10x6/uL (4.00-5.40); RDW 18.2 % (11.5-14.5); WBC 12.2 10x3/uL (4.8-10.8)
[2017-01-28 05:25] LABS: PLATELET COUNT 489 10x3/uL (130-400)
[2017-01-28 05:44] LABS: ALBUMIN 1.3 g/dL (3.4-5.0); ALKALINE PHOSPHATASE 116 U/L (46-116); ALT (SGPT) 16 U/L (10-68); BILIRUBIN - TOTAL 0.23 mg/dL (0.2-1.3); CALC OSMOLALITY 274 mosm/kg (275-300); CALCIUM 7.5 mg/dL (8.5-10.1); CARBON DIOXIDE 24.8 mmol/L (21.0-32.0); CHLORIDE - SERUM 103 mmol/L (98-107); CREATININE - SERUM 0.6 mg/dL (0.6-1.3); GLUCOSE 107 mg/dL (74-106); POTASSIUM - SERUM 3.8 mmol/L (3.5-5.1); PROTEIN - SERUM 6.3 g/dL (6.4-8.2); SODIUM 139 mmol/L (136-145); UREA NITROGEN 5 mg/dL (7-18); eGFR NON AFRICAN AMERICAN > 90 mL/min (90-120)
[2017-01-28 08:39] VITALS: BP 97/53
--- NOTE | 2017-01-28 08:45 | NUR ---
MORNING MEDICATIONS GIVEN PT REFUSED HER MULTI VITAMIN AND EYE DROPS. PROVIDED PT WITH ALL OTHER MORNING MEDICATIONS ALONG WITH PRN PAIN MEDICATION AND BENADRYL REQUESTED. PTS SHEETS ARE SOILED FROM DRAINAGE FROM WOUND TO HER BUTTOCKS. DRSG CHANGE PROVIDED PER ORDERS AND NOW NEW CLEAN DRSG IN PLACE AND SECURED WITH TAPE. PT HAS A COLOSTOMY BAG TO HER LLQ AND SHE CHANGED BAG AND STOMA DRSG HERSELF. BLADDER HAS DRAINAGE BAG SYSTEM WELL AND DRAINING CLOUDY URINE. PT A&O AND STATES SHE IS READY TO BE DISCHARGED BACK TO [place] WHERE SHE CAME FROM. PT HAS A R.IJ CVL WITH DRSG CDI BIOPATCH ADHERED TO SKIN AND SWAB CAPS IN USE. PT DENIES ANY FURTHER NEEDS AT THIS TIME, CL IN REACH, BED IN LOWEST, SIDE RAILS X2. WILL CPOC.
--- NOTE | 2017-01-28 10:49 | NUR ---
PAGED TO VERIFY I CAN REMOVE JENNIFER AND HE OKAY'D IT. WILL REMOVE THEM TODAY. SITE LOOKS GOOD AND NO S/S OF INFECTION/REDDNESS OR DRAINAGE. WILL LEAVE [place] UNTIL REMOVAL.
--- NOTE | 2017-01-28 11:56 | NUR ---
AMARIS IVPB NOT AVAILABLE FROM PHARMACY AT THIS TIME. CALLED THEM AND SPOKE TO SHAY AND SHE STATES THEY WILL BRING IT UP.
[2017-01-28 12:13] VITALS: BP 101/57
--- NOTE | 2017-01-28 13:11 | NUR ---
STERILE CVL DRSG CHANGE DONE TO R.IJ. BIOPATCH IN PLACE AND DRSG AHERED TO SKIN, SWAB CAPS IN PLACE. PT HAD A LOT OF PAIN DURING CHANGE R/T THE TAPE/ADHESIVE PULLING ON HER SKIN. REMOVED PTS L.HIP JENNIFER WELL, CLEANSED SITE WITH ALCOHOL PAD AND THEN APPLIED STERI-STRIPS AND LEFT SMUTTER. PT RESTING IN BED AND C/O PAIN TO HER NECK, WILL PAGE AND REQUEST A ONE TIME BREAK-THROUGH DOSE OF PAIN MEDICAITON R/T ALL HER RECENT DRSG CHANGES. CL IN REACH, BED IN LOWEST, SIDE RAILS X2. WILL CPOC.
[2017-01-28 15:28] VITALS: BP 112/47
--- NOTE | 2017-01-28 17:06 | NUR ---
PT C/O HER NECK AND R.SHOULDER HURTING REQUESTING AND PROVIDED PRN PAIN MEDICATION ALONG WITH BENADRYL REQUESTED. PT RESTING IN BED AND VOICED THANKS. CL IN REACH, BED IN LOWEST, SIDE RAILS X2. WILL CPOC.
--- NOTE | 2017-01-28 18:00 | NUR ---
PT REFUSED DINNER AND ASKED FOR HER BENADRYL AGAIN, TOLD HER ITS 2 HOURS EARLY, SHE STATES "THATS FINE I WAS JUST WONDERING"
--- NOTE | 2017-01-28 20:07 | NUR ---
PT IS RESTING IN BED WITH EYES OPEN. ALERT AND ORIENTED X 3. DENIES ANY NEEDS AT THIS TIME, BUT WOULD LIKE BENEDRYL AKHIL. DRESSING TO LEFT HIP IS CDI. UROSTOMY IS PATENT AND DRAINING TO A GRAVITY BAG. COLOSTOMY IS PATENT. PT DOES OWN OSTOMY CARE. RIGHT IJ TRIPLE LUMEN IV IS INTACT. DRESSING TO COCCYX IS CDI. NO DRAINAGE NOTED. SR'S ARE UP X 3 IN BED. CALL LIGHT AND BEDSIDE TABLE ARE WITHIN EASY REACH.
[2017-01-28 21:14] VITALS: BP 101/48
--- NOTE | 2017-01-28 21:58 | NUR ---
PT IS RESTING QUIETLY IN BED WITH EYES CLOSED. RESPS ARE EVEN AND UNLABORED. NO ACUTE DISTRESS NOTED.
[2017-01-28 23:29] VITALS: BP 101/48
--- NOTE | 2017-01-29 02:05 | NUR ---
RESTING IN BED WITH EYES CLOSED.
--- NOTE | 2017-01-29 02:39 | NUR ---
PT RESTING IN BED WITH EYES CLOSED. NO ACUTE DISTRESS NOTED.
[2017-01-29 04:05] VITALS: BP 97/54
--- NOTE | 2017-01-29 04:48 | NUR ---
RESTING IN BED WITH EYES CLOSED.
--- NOTE | 2017-01-29 05:30 | NUR ---
SALES OPERATIONS ASSOCIATE AT BEDSIDE TO OBTAIN VITALS, WILL CONTINUE WITH PLAN OF CARE. CALL LIGHT IN REACH.
--- NOTE | 2017-01-29 07:45 | NUR ---
INTRODUCED MYSELF TO PT PRIMARY RN FOR TODAYS SHIFT. PT FAMILAR WITH ME FROM YESTERDAY AND STATES SHE HAD A HORRIBLE NIGHT BECAUSE SHE NEEDS BREAKTHROUGH PAIN MEDICATION. WE HAVE ALREADY DISCUSSED WITH THE DOCTOR AND PATIENT AND THEY ARE NOT DOING IT AT THIS TIME. OFFERED TV OR REPOSITIONING AND PT DENIES WANT/NEED. NO CURRENT NEEDS NOTED AT THIS TIME. CL IN REACH. WILL CPOC.
[2017-01-29 08:55] VITALS: BP 112/61
--- NOTE | 2017-01-29 09:51 | NUR ---
MORNING MEDICATIONS GIVEN ALONG WITH PRN BENADRYL AND PAIN MEDICATION. PT WAS COMPLETED SATURATED YESTERDAY WHEN I MET HER AND IS WELL TODAY FROM HER WOUND ON HER BUTTOCKS. PT REFUSED TO ALLOW ME TO CLEAN HER UP AND DO THE DRSG CHANGE AND STATES "MY STUFF NEEDS TO KICK IN FIRST" WENT INTO GREAT DETAIL ABOUT WOUND HEALING PROCESS AND THE IMPORTANCE OF KEEPING HER SKIN CLEAN AND DRY AND INFECTION PREVENTION HOWEVER PT SEEMS TO NOT BE CONCERNED AND STATES "I UNDERSTAND BUT I JUST NEED TO WAIT" WILL ALLOW HER TO WAIT AND TRY AGAIN LATER. NO FURTHER NEEDS AT THIS TIME.
--- NOTE | 2017-01-29 10:12 | NUR ---
Patient Name: SANTANA PADILLA Encounter No: [id number] : 1990 Primary Insurance: BLUE CROSS FEP Anticipated DC Date: Planned Disposition: Nursing Facility [facility] External Planned Provider: [facility], SKILLED BED DCP follow-up note: CM REVIEWED TREATMENT AND DISCHARGE PLAN WITH BEDSIDE NURSE. CM SPOKE TO DR. ALBERTO WHO CLARIFIED PLAN FOR DISCHARGE. CM CALLED [facility], , SPOKE TO CARLOS WHO REPORTS SHE RECEIVED FAX THIS MORNING FROM HER BOX AND THEY WERE LEANING TOWARD SENDING PT TO AN LTACH, BUT WILL REVIEW NEW PLAN WITH TREATMENT TEAM AND LET CM KNOW IF THEY WILL BE ACCEPTING BACK AT [facility]. CM FAXED HOSPITAL UPDATE TO [facility] AT [phone] WITH CURRENT ANTIBIOTICS LISTED. CM DISCUSSED WITH DR. NAIR. [facility] MAY WANT CM TO REFER PT TO [facility]. CM WAITING DETERMINATION IF [facility] CAN MEET CURRENTLY PRESCRIBED ANTIBIOTIC NEED IN FACILITY. FOR DISCHARGE, NURSE REPORT TO BE CALLED TO [facility], , FAX DISCHARGE INFORMATION TO [facility] AT [phone]. AMBULANCE TRANSPORT [employer] Con[employer]or: Zachary Geiger
--- NOTE | 2017-01-29 10:53 | NUR ---
PT ON PHONE TRYING TO FIGURE OUT WHAT PLACEMENT SHE WANTS HER [facility] WILL NOT ACCEPT HER BACK AND SHE WILL NEED [facility]. PT REFUSING [facility] CHANGE AGAIN AND STATES SHE IS EMOTIONAL. WILL GIVE HER SPACE AND TIME AND CTM.
[2017-01-29] MEDS ORDERED: [UNRECOGNIZED DRUG - OTHER] IV (11:08)
[2017-01-29] MEDS ORDERED: VANCOMYCIN 1 GM/1 G1 IV (11:10)
[2017-01-29] MEDS ORDERED: PROTONIX40 MG PO (11:12)
[2017-01-29 12:05] VITALS: BP 114/63
--- NOTE | 2017-01-29 13:17 | NUR ---
Patient Name: SANTANA PADILLA Encounter No: [id number] : 1990 Primary Insurance: [employer] CROSS FEP Anticipated DC Date: 01-29-2017 Planned Disposition: Field Service Tech Acute Care Facility External Planned Provider: JORGE METCALF DCP follow-up note: CM RECEIVED CALL FROM CARLOS OF [facility], , WHO REPORTS PT HAS CALLED WITH CONCERNS THAT [facility] WILL NOT ACCEPT HER; CARLOS INFORMED PT THAT IF [facility] WILL NOT ACCEPT, [facility] WILL TRY TO ACCOMODATE PT BACK AT [facility] BUT THAT THE TREATMENT TEAM AT THE SKILLED N[facility] PT WOULD HAVE BEST CHANCE OF SUCCESSFUL TREATMENT IN [facility]. CM SPOKE TO PT IN ROOM AT ABOUT 1245, PT CONSENTS TO REFERRAL TO [facility] AT [facility] AND DOES NOT WANT REFERRAL OUT OF [facility]. CM CALLED DAYRON OF [facility], , LTACH BED AVAILABLE AND PT WILL BE SCREENED FOR ADMISSION; [facility] AT [phone]. CM WAITING ADMISSION DETERMINATION FROM [facility]. Zachary Geiger, CASE MANAGEMENT
--- NOTE | 2017-01-29 13:49 | NUR ---
PT C/O NECK STRAIN/PAIN REQUESTED AND PROVIDED WITH PRN PAIN MEDICATION AND BENADRYL. PT STILL NOT "READY" FOR DRSG CHANGE, WILL CONTINUE TO ENCOURAGE IT AND TRY TO GET IT DONE. PT VOICED THANKS AND STATES "I REALLY HOPE LT[facility] REFUSES ME SO I CAN GO BACK TO [facility] BECAUSE IM USED TO IT THERE" CASE MANAGEMENT STILL WORKING ON PLACEMENT. PT IS AWARE AND WILL CPOC.
--- NOTE | 2017-01-29 13:59 | NUR ---
PT IRRITATED ABOUT HER SITUATION IN GENERAL AND STATES "I CANT GO TO LTAC BECAUSE IM BANNED FROM [facility] FOR NONCOMPLIANCY FOR HAVING ALCOHOL AND SMOKING MARIJUANA ON CAMPUS" TOLD PT THAT CASE MANAGEMENT WORKS ON ALL OF THAT AND WILL ADDRESS IF SHE IS ABLE OR NOT. PT THEN STATES "WELL IM NOT GOING TO AND IF I CANT GO BACK TO [place] THEN I GUESS I WILL JUST GO HOME AND NOONE WILL BE ABLE TO TAKE CARE OF ME" NOTIFIED PRIMARY DOCTOR AND CASE MANAGEMENT AND WE WILL SEE WHAT OPTIONS ARE AVAILABLE.
--- NOTE | 2017-01-29 16:52 | NUR ---
Patient Name: SANTANA PADILLA Encounter No: [id number] : 1990 Primary Insurance: [employer] CROSS FEP Anticipated DC Date: 01-29-2017 Planned Disposition: Care Home Acute Care Facility External Planned Provider: JORGE METCALF DCP follow-up note: CM CALLED DAYRON OF [facility], , LEFT TELEPHONE MESSAGE TO VERIFY FAX RECEIPT AND GET UPDATE ON ADMISSION ASSESSMENT FOR LTACH. CM WAITING ADMISSION DETERMINATION FROM [facility]. Zachary Geigre, CASE MANAGEMENT
--- NOTE | 2017-01-29 17:16 | NUR ---
PTS LINENS STILL SOILED BUT AGAIN SHE IS REQUESTING HER PRN MEDICATIONS. PT STATES "WELL [facility] CAN CHANGE IT RIGHT" DISCUSSED WOUND HEALING PROCESS AGAIN IN DETAIL WITH PT AND INFECTION PREVENTION AND PT STATES SHE UNDERSTANDS BUT SO MUCH IS GOING ON AND HAS UPSET HER AND SHE JUST WANTS "LEFT ALONE" OPEN DINNER TRAY AND ENCOURAGED HER TO EAT SOMETHING SHE HASNT EATEN AT ALL TODAY AND SHE REFUSED AND STATED NOW SHE IS NAUSEATED AND WANTS ZOFRAN. WILL GIVE REQUESTED MEDICATIONS AND CPOC.
--- NOTE | 2017-01-29 19:24 | NUR ---
PT RESTING IN BED. BED LOW AND CALL LIGHT IN REACH. PT DENIES ANY NEEDS AT THIS TIME. NO S/S OF DISTRESS. WILL CPOC
[2017-01-29 20:00] VITALS: BP 89/48
--- NOTE | 2017-01-29 22:06 | NUR ---
PT ASKED FOR PAIN MED AND BENADRYL. PT TALKING ABOUT NOT BEING ABLE TO GO BACK TO [facility]. PT SEEMS ANXIOUS ABOUT SITUATION. PT DENIES ANY OTHER NEEDS. NO S/S OF DISTRESS. WILL CPOC
--- NOTE | 2017-01-30 02:51 | NUR ---
PT REFUSED BATH, STATES SHE FEELS SICK AND CANNOT NOT HANDLE A BATH. PT IS ODOROUS, REFUSED A BATH AND DRESSING CHANGE DURING DAY SHIFT. PT HAS REFUSED ONCE TONIGHT. WILL ATTEMPT AGAIN AT 0500. PT HAS HAD ZOFRAN, PERCOCET, AND BENADRYL REQUESTED. PT CANNOT HAVE ANYTHING ELSE AT THIS TIME. PT BED LOW AND CALL LIGHT IN REACH EMPTIED 1000 ML OF YELLOW CONCENTRATED URINE WITH SEDIMENT FROM UROSTOMY. NO S/S OF DISTRESS. WILL CPOC
[2017-01-30 04:00] VITALS: BP 106/65
--- NOTE | 2017-01-30 06:35 | NUR ---
DRSG ON BUTTOCK CHANGED. TUNNELING SEEN. WOUND CLEANED AND NEW DRSG APPLIED. PT BATHED, NEW LINEN AND GOWN. ANKLES NOT CHANGED AT THIS TIME. DRSG CDI. PT ASKS FOR PAIN MEDS. WILL GIVE AT THIS TIME. PT DENIES ANY OTHER NEEDS. NO S/S OF DISTRESS.WILL CPOC
--- NOTE | 2017-01-30 07:45 | NUR ---
AM ROUNDS COMPLETED. SHIFT ASSESSMENT DONE. PT CURRENTLY DRY AND DRSG WAS CHANGED BY [facility] AND IS INTACT AND DRY. SHIFT ASSESSMENT COMPLETED. PT IS ANXIOUS TO FIND OUT ABOUT DISCHARGE PLACEMENT. WE ARE STILL WAITING AND TRYING TO SEE IF [facility] WILL ACCEPT HER. NO CURRENT NEEDS AT THIS TIME. WILL CPOC.
[2017-01-30 08:21] VITALS: BP 94/43
--- NOTE | 2017-01-30 10:00 | NUR ---
MORNING MEDICATIONS GIVEN. PT C/O PAIN AND ALSO WANTED HER BENADRYL AND WAS PROVIDED WITH IT EARLY AND WAS OKAY WITH IT A LITTLE EARLY THIS TIME. PT IS ABOUT TO HAVE HER PICC PLACED AND COMPLAINING ABOUT HOW ITS GOING TO UPSET HER AND SHE DEMANDED HER MEDS FIRST AND WAS PROVIDED WITH THEM. PT NOW RESTING AND REFUSED BREAKFAST AGAIN TODAY. NO FURTHER NEEDS AT THIS TIME. WILL CPOC.
--- NOTE | 2017-01-30 10:20 | NUR ---
VASCULAR NURSE AT BEDSIDE TO PLACE PICC LINE.
[2017-01-30 12:16] VITALS: BP 106/48
--- NOTE | 2017-01-30 14:24 | NUR ---
PT CALLED REQUESTING PRN PAIN MEDICATIONS AND BENADRYL AND WAS PROVIDED WITH IT. PT LYING BACK IN BED RESTING QUIETLY REFUSED LUNCH AND STATES SHE IS STILL NOT HUNGRY. CL IN REACH. WILL CPOC.
--- NOTE | 2017-01-30 15:40 | NUR ---
Patient Name: SANTANA PADILLA Encounter No: [id number] : 1990 Primary Insurance: [employer] FEP Anticipated DC Date: 01-29-2017 Planned Disposition: Intermediate Acute Care Facility External Planned Provider: JORGE METCALF DCP follow-up note: JAZMYN WAS ADVISED BY ALEXEI CHISHOLM THAT [facility] ADVISED THAT THEY HAVE SUBMITTED FOR INSURANCE AUTHORIZATION FROM 'S INSURANCE COMPANY FOR [facility] SERVICES. CM CALLED [facility], , LEFT TELEPHONE MESSAGE TO GET UPDATE ON ADMISSION ASSESSMENT FOR LTACH. CM CALLED [facility], , CARLOS WAS NOT IN, CM LEFT DETAILED MESSAGE WITH UPDATE ON LTACH EVALUATION. CM WAITING ADMISSION DETERMINATION FROM [facility]. Zachary Geiger, CASE MANAGEMENT
[2017-01-30 16:44] VITALS: BP 97/49
--- NOTE | 2017-01-30 19:34 | NUR ---
PT SITTING UP IN BED, HOB 45. PT WATCHING TV. ASKS FOR PAIN MEDS WHEN DUE, ASKS WHEN THEY ARE DUE. TOLD PT NOT UNTIL AFTER 2200. PT DENIES ANY NEEDS. NO S/S OF DISTRESS. BED LOW AND CALL LIGHT IN REACH. WILL CPOC
--- NOTE | 2017-01-30 20:18 | NUR ---
PT WATCHING TV EATING CHIPS. PT DENIES ANY NEEDS. BED LOW AND CALL LIGHT IN REACH. NS INFUSING TO RIGHT IJ @ 100 WITH MAXIPIME SECONDARY. PT HAS NO S/S OF DISTRESS.WILL CPOC
[2017-01-31] VITALS: BP 104/59
--- NOTE | 2017-01-31 03:00 | NUR ---
PT HAS HAD HER PERCOCET AND BENADRYL AND ZOFRAN REQUESTED. PT WAS SITTING UP IN BED MESSING WITH HER UROSTOMY, IT LEAKED. GOWN AND BLANKETS CHANGED. PT DECLINED THE OFFER OF HELP WITH UROSTOMY. SAID NO WHEN ASKED HER TO GO AHEAD AND EMPTY COLONOSTOMY. STATES IT IS NOT NEEDED YET. EMPTIED DEGROOT. 1050 OF CONCENTRATED YELLOW URINE WITH SEDIMENT PRESENT. PT DENIES ANY NEEDS. NO S/S OF DISTRESS. WILL CPOC
--- NOTE | 2017-01-31 06:30 | NUR ---
PT C/O PAIN IN BACK. ALSO C/O NECK FEELING NUMB BY HER IJ. ASSESSED. SOME REDNESS BUT OTHERWISE WNL. WILL PASS IN REPORT. PT DENIES ANY OTHER NEEDS. NO S/S OF DISTRESS. WILL CPOC
[2017-01-31 07:48] VITALS: BP 105/49
--- NOTE | 2017-01-31 08:32 | NUR ---
AM ROUNDS - PT IN BED AND AWAKE AT THIS TIME. PT HAS A RIGHT IJ. REFUSES SCD. LEFT COLOSTOMY. RIGHT UROSTOMY. BED AT LOWEST POSITION. CALL HOFF IN USE/REACH. SIDE RAILS UP X2. WILL COTNINUE TO MONITOR
[2017-01-31 12:03] VITALS: BP 101/47
--- NOTE | 2017-01-31 14:05 | NUR ---
WENT TO GIVE MEDICATION ADN WAS TOLD BY GENA DIANE, THAT SHE IS MAKING A DECISION AND TO STOP, MEDS CAN WAIT AND I NEEDED TO GO D/C ANOTHER PT BECAUSE THE ER IS FILLING UP. TRIED TO EXPLAIN TO GENA THAT THIS PT IS ON MULTIPLE IVPB AND EVERYTHING WILL BE PUSHED BACK. GENA RESTATED THAT MEDS CAN WAIT AND I NEEDED TO D/C MY OTHER PT.
[2017-01-31 16:24] VITALS: BP 103/54
--- NOTE | 2017-01-31 19:14 | NUR ---
PT RESTING IN BED. NS INFUSING AT 125 TO RIGHT IJ. PT BED LOW AND CALL LIGHT IN REACH. DENIES ANY NEEDS. NO S/S OF DISTRESS. WILL CPOC
[2017-01-31 20:00] VITALS: BP 100/60
--- NOTE | 2017-01-31 21:49 | NUR ---
VANC NOT GIVEN. VANC TROUGH IS HIGH AT 33. WILL HOLD THIS DOSE. PT C/O PAIN AND PAIN MED GIVEN. PT DENIES ANY NEEDS. NO S/S OF DISTRESS. WILL CPOC
[2017-02-01] VITALS (7 sets, daily range): BP systolic 93–110; BP diastolic 42–65
--- NOTE | 2017-02-01 00:45 | NUR ---
PT SITTING IN BED WATCHING A MOVIE ON HER PHONE. EATING SMALL AMOUNTS OF FOOD AND EATING AN ICECREAM. PT DENIES ANY NEEDS. NO S/S OF DISTRESS. WILL CPOC
--- NOTE | 2017-02-01 01:40 | NUR ---
PT C/O PAIN PERCOCET GIVEN. MAXIPIME GIVEN. PT DENIES ANY OTHER NEEDS. NO S/S OF DISTRESS.WILL CPOC
--- NOTE | 2017-02-01 01:59 | NUR ---
GOT PT UP IN CHAIR. PT STAYED IN CHAIR APPROX AN HOUR. PUSHED HER SELF AROUND THE BEST SHE COULD (CHAIR WAS TO BIG). STATED SHE FEELS ALOT BETTER BEING ABLE TO GET OUT OF THE BED AND ACTUALLY BEING ABLE TO SIT IN A CHAIR. PT HAS NO S/S OF DISTRESS. PARTIAL ASSIST TO CHAIR. DENIES ANY NEEDS. CHANGED BED LINEN AND FIXED BED. WILL CPOC
--- NOTE | 2017-02-01 03:20 | NUR ---
PT BACK TO BED. MAX ASSIST. PT DIAPHORETIC, STATES SHE IS COLD. CLEANED PT UP. DID A DRSG CHANGE TO BUTTOCK. PT WOUND IS WORSE SINCE LAST WEEK WHEN I HAD HER. IT HAS SINUS TRACTS, TUNNELING AND A MODERATE AMOUNT OF BLOODY DRAINAGE. BONE CAN BE FELT ON LEFT BUTTOCK WOUND. WHEN PT MOVES YOU CAN HEAR A SLUSH NOISE FROM THE DRAINAGE AMOUNT. WHEN YOU MOVE PT LEG IT CLICKS. NEED GINGER WOUND DOCTOR TO ASSESS WOUND FOR NEW DRSG TREATMENT. PT DRSG NOW CDI. PT DENIES ANY NEEDS. NO S/S OF DISTRESS. WILL CPOC
--- NOTE | 2017-02-01 03:59 | NUR ---
PT CHANGED COLOSTOMY BAG, FOLLEY DRAINAGE SYSTEM CHANGED. PT DENIES ANY NEEDS AT THIS TIME. NO S/S OF DISTRESS. WILL CPOC
--- NOTE | 2017-02-01 09:11 | NUR ---
AM ROUNDS - PT IS IN BED AND APPEARS TO BE SLEEPING AT THIS TIME WITH EQUAL AND NON LABORED BREATHING. RIGHT IJ, NS AT 50CC/HR. SCD, PT REFUSES. BED AT LOWEST POSITION. CALL HOFF IN USE/REACH. SIDE RAILS UP X2. WILL CONTINUE TO MONITOR
--- NOTE | 2017-02-01 10:46 | NUR ---
YESTERDAY MORNINGS TROUGH WAS NOT DRAWN BEFORE THE DOSE. I CANCELED THAT LEVEL AND REORDERED ONE TO BE DRAWN BEFORE THE NIGHTTIME DOSE. DURING THIS TIME A RANDOM WAS ORDERED, THE LEVEL WAS 33.6, THIS WAS ROUGHLY 2 HOURS POST DOSE MAKING THIS A PEAK THE TROUGH I ORDERED WITH THE 01/31 NIGHTTIME DOSE WAS 8.8, BUT SEEING A LEVEL OF 33.6, IT APPEARS THAT THE NIGHT NURSE HELD LAST NIGHTS DOSE. MOVING FORWARD I HAVE DECIDED TO BUMP UP HER DOSE TO 1.25 GRAM Q12H, BASED ON THE CORRECT TROUGH OF 8.8. WILL GET ANOTHER TROUGH ORDERD AFTER 4 DOSES TO VERIFY DOSE. PATIENT RECEIVED 5 DOSES AND WILL NEED 79 MORE TO GET HER FULL 42 DAYS OF TX.
--- NOTE | 2017-02-01 18:06 | NUR ---
PT DEGROOT LEAKED AND NO OUTPUT IN BAG.
--- NOTE | 2017-02-01 19:30 | NUR ---
RECEIVED REPORT, PT DENIES ANY NEEDS AT THIS TIME, BED IS LOW, SRX2, CALL LIGHT IN REACH, WILL CONTINUE PLAN OF CARE
--- NOTE | 2017-02-02 01:03 | NUR ---
C/O OF PAIN, WANTS PERCOCET, ZOFRAN, AND BENADRYL, GAVE ORDER
[2017-02-02 03:41] VITALS: BP 91/54
--- NOTE | 2017-02-02 07:54 | NUR ---
RECIEVED REPORT ON PATIENT, PATIENT IS RESTING, AROUSES TO VOICE. PATIENT HAS A R IJ CVL WITH NS INFUSING AT 75ML/HR. PATIENT HAS A COLOSTOMY NOTED TO LEFT SIDE, AND A UROSTOMY NOTED TO RIGHT SIDE OF ABDOMEN. PATIENT DENIES ANY NEEDS AT THIS TIME. BED IS LOW AND LOCKED. WILL CONT TO MONITOR PATIENT. CPOC CALL LIGHT IN REACH.
[2017-02-02 08:09] VITALS: BP 119/48
--- NOTE | 2017-02-02 10:05 | NUR ---
MORNING MEDICATIONS GIVEN, PATIENT HAS BEEN SLEEPING THIS AM. WOULD NOT TAKE MEDS THIS AM, NOW REQUESTING. BENADRYL AND PERCOCET GIVEN. PATIENT DENIES ANY OTHER NEEDS. CPOC
--- NOTE | 2017-02-02 11:14 | NUR ---
Patient Name: SANTANA PADILLA Encounter No: [id number] : 1990 Primary Insurance: [employer] FEP Anticipated DC Date: 01-29-2017 Planned Disposition: HALF-WAY FACILITY External Planned Provider: [facility], COMMERCIAL INSURANCE SKILLED BED DCP follow-up note: CM RECEIVED CALL FROM [facility], , WHO REPORTS THAT [facility] IS UNDER CONTRACT NEGOTIATIONS WITH [employer] AND CANNOT ACCEPT ANY BLUE CROSS INSURED PATIENTS AT THIS TIME. CM CALLED [facility], , WAS ADVISED THAT CARLOS WAS IN THE MORNING MEETING. CM LEFT DETAILED MESSAGE REGARDING ABOVE AND REQUESTED RETURN CALL. CM FAXED UPDATE WITH DISCHARGE INFORMATION TO [facility], . PT WAS DECLINED BY [facility] IN [place]. PT HAS DECLINED LTACH OUTSIDE [place]. [facility] INFORMED CM LAST WEEK THEY WOULD ATTEMPT TO ACCOMODATE PT'S NEEDS IF DECLINED BY [place] [facility]. CM WAITING RETURN CALL AND ADMISSION DETERMINATION FROM [facility]. Zachary Geiger, CASE MANAGEMENT
--- NOTE | 2017-02-02 11:30 | NUR ---
PATIENT REFUSING TO HAVE DRESSING CHANGED AT THIS TIME, REQUESTING TO BE DONE WHEN PAIN MEDICATION CAN BE GIVEN. WILL CHANGE LATER TODAY. CPOC
[2017-02-02 11:46] VITALS: BP 100/50
--- NOTE | 2017-02-02 12:30 | NUR ---
PATIENT IS RESTING AT THIS TIME, EATING LUNCH. DENIES ANY NEEDS. CPOC
--- NOTE | 2017-02-02 13:32 | NUR ---
Patient Name: SANTANA PADILLA Encounter No: [id number] : 1990 Primary Insurance: [employer] CROSS FEP Anticipated DC Date: 02-02-2017 Planned Disposition: Halfway Facility External Planned Provider: [facility], COMMERCIAL INSURANCE SKILLED BED DCP follow-up note: CM RECEIVED CALL FROM CARLOS OF [facility], , [facility] WILL ACCEPT PT BACK FOR SKILLED CARE TODAY. CM NOTIFIED PT WHO IS HAPPY AND IN AGREEMENT WITH DISCHARGE BACK TO [facility] TODAY. LATHE MACHINE OPERATOR NURSE AND BEDSIDE NURSE NOTIFIED. NURSE REPORT TO BE CALLED TO [facility], , PT TO TRANSPORT VIA AMBULANCE. Zachary Geiger, CASE MANGEMENT
--- NOTE | 2017-02-02 14:00 | NUR ---
WENT IN TO CHANGE PATIENT DRESSING, PATIENT IS SLEEPING. WILL CHANGE WHEN AWAKE. CPOC
--- NOTE | 2017-02-02 16:45 | NUR ---
PATIENT GIVEN DC INSTRUCTIONS. PAPER WORK SIGNED. DRERSSINGS CHANGED. PATIENT DENIES ANY QUESTIONS. PATIENT READY FOR DC
--- NOTE | 2017-02-02 17:43 | NUR ---
REPORT CALLED TO [facility]. GAVE REPORT TO
--- NOTE | 2017-02-02 18:15 | NUR ---
[facility] HERE FOR PICKUP. PATIENT READY FOR DC
[2017-02-07 15:08] LABS: AEROBE ID Final report (())
== END 2017-02-02 18:31 | DRG 853 ==
LOC: D.ER 20:58 → D.M2 23:47
PROVIDERS: Anesthesiology; Emergency Medicine; Orthopaedic Surgery; Student in an Organized Health Care Education/Training Program; ADMIT Family Medicine
PROC: 0QT70ZZ Resection of Left Upper Femur, Open Approach (ICD-10-PCS; principal; 2017-01-16 12:00)
PROC: 05HB33Z Insertion of Infusion Device into Right Basilic Vein, Percutaneous Approach (ICD-10-PCS; 2017-01-22)
PROC: B54MZZA Ultrasonography of Right Upper Extremity Veins, Guidance (ICD-10-PCS; 2017-01-22)
PROC: 0JPT0WZ Removal of Totally Implantable Vascular Access Device from Trunk Subcutaneous Tissue and Fascia, Open Approach (ICD-10-PCS; 2017-01-23)
PROC: 05H533Z Insertion of Infusion Device into Right Subclavian Vein, Percutaneous Approach (ICD-10-PCS; 2017-01-30)
DX: B37.89 Other sites of candidiasis (principal); L89.154 Pressure ulcer of sacral region, stage 4; L89.524 Pressure ulcer of left ankle, stage 4; L89.513 Pressure ulcer of right ankle, stage 3; M86.652 Other chronic osteomyelitis, left thigh; N39.0 Urinary tract infection, site not specified; G82.20 Paraplegia, unspecified; G40.909 Epilepsy, unspecified, not intractable, without status epilepticus; K21.9 Gastro-esophageal reflux disease without esophagitis; F41.8 Other specified anxiety disorders; E55.9 Vitamin D deficiency, unspecified; E53.8 Deficiency of other specified B group vitamins; E03.9 Hypothyroidism, unspecified; G89.29 Other chronic pain; B96.20 Unspecified Escherichia coli [E. coli] as the cause of diseases classified elsewhere; Z72.0 Tobacco use; H10.9 Unspecified conjunctivitis

== ENCOUNTER 2017-07-21 17:16 | Inpatient (IN) | payer BC ==
[~2017-07-21] VITALS: Ht 170.2 cm; Wt 68.0 kg
--- NOTE | ~2017-07-21 | OP ---
PATIENT NAME: SANTANA PADILLA MEDICAL RECORD: [id number] :[birth year] LOCATION:D.MS Lai[facility] ADMISSION DATE:07/21/17 SURGEON: JOSELUIS JIMENEZ MD DATE OF OPERATION: 07/28/2017 PREOPERATIVE DIAGNOSES: 1. Need for IV access. 2. Chronic osteomyelitis. 3. Paraplegia. 4. Sacral decubitus. 5. Lower extremity abscess. 6. Recurrent UTIs. 7. GERD. 8. Seizure disorder. POSTOPERATIVE DIAGNOSES: 1. Need for IV access. 2. Chronic osteomyelitis. 3. Paraplegia. 4. Sacral decubitus. 5. Lower extremity abscess. 6. Recurrent UTIs. 7. GERD. 8. Seizure disorder. PROCEDURE: 1. Right subclavian vein port placement. 2. Fluoroscopic interpretation. SURGEON: Joseluis Jimenez MD REPORT OF PROCEDURE: The patient's right chest was prepped and draped in sterile fashion. A needle was used to cannulate the right subclavian vein and a guidewire was advanced with fluoroscopic guidance. A skin incision was made on the right superolateral chest and a subcutaneous pouch was made over the pectoral fascia. The port was sutured to the pectoral fascia. The catheter was then cut with a beveled tip at 18 cm. The dilator trocar device was placed over the wire and the wire and dilator were removed. The catheter tip was advanced through the trocar. We aspirated nonpulsatile dark blood and then flushed the port with heparinized saline. The subcutaneous tissues were reapproximated with interrupted 3-0 Vicryl and the skin was closed with running subcutaneous 5-0 Monocryl. We then accessed the port and flushed it one last time before dressing was applied. COMPLICATIONS: None. CONDITION: Stable. ANESTHESIA: General endotracheal. BLOOD LOSS: Minimal. TRANSINT:[id number] Voice Confirmation ID: [id number] DOCUMENT ID: [id number] OPERATIVE REPORT [id number] RANDYSANTANA Phuc JOSELUIS JIMENEZ MD at 1031 CC: [id number] DICTATION DATE: 07/28/17 1530 CORPORATE COMMUNICATIONS INTERN: 07/28/17 1541 DIS IN 08/03/17 [place] [address]
--- NOTE | ~2017-07-21 | OP ---
PATIENT NAME: SANTANA PADILLA MEDICAL RECORD: [id number] :[birth year] LOCATION:D.MS Lai[facility]Zheng ADMISSION DATE:07/21/17 SURGEON: RENNY SAEZ MD DATE OF OPERATION: 07/22/2017 SURGEON: Renny Saez MD (JJ) ANESTHESIOLOGIST AND CRITICAL CARE: Myrtle Melara APRN PREOPERATIVE DIAGNOSIS: Complex multifocal fluid collection in the left thigh. POSTOPERATIVE DIAGNOSIS: Complex multifocal fluid collection in the left thigh. PROCEDURE PERFORMED: Incision and drainage of complex multiloculated abscess in the left inner thigh. Abscess cavity was 15 cm x 10 cm x 12 cm. Case was grossly contaminated. SPECIMENS: Fluid and tissue cultures. OPERATIVE COURSE: After consent was obtained, the patient was taken to the operating room and placed in the supine position on the operating table. Total intravenous anesthesia was given. A time-out was taken to confirm correct patient and procedure. The left thigh was prepped and draped in typical sterile fashion. An elliptical incision was made with a #15 blade scalpel over the apex of the indurated tissue. Finger dissection was then performed throughout the subcutaneous tissue. The abscess cavity was entered. There was approximately 150 cc of pus that was immediately returned. Fluid cultures were obtained as well and sent for microbiology. Finger dissection was performed to dissect all loculations within the abscess cavity. The abscess cavity extended to rectum, vagina, and left hip. The wound was copiously irrigated. Wound was then packed with Kerlix soaked in Betadine and peroxide. It was covered with sterile gauze dressing. At the end of the case, all needle and instrument counts were correct. No complications occurred. The patient was extubated and transferred to the PACU in stable condition. TRANSINT:[id number] Voice Confirmation ID: [id number] DOCUMENT ID: [id number] RENNY SAEZ MD at 1535 CC: [id number] DICTATION DATE: 07/22/17 1347 HEALTH PROMOTION COORDINATOR: 07/22/17 1535 [place] [address]
[~2017-07-21 17:16] MED LIST changes: +K-TAB10 MEQ PO; +MULTIPLE VITAMI1 TA1 PO; +PERCOCET 10/3251 TA1 PO; +PROTONIX40 MG PO; +REQUIP0.5 MG PO; +TRINESSA1 TAB PO; +VALIUM 2 MG TAB2 MG PO; +VANCOMYCIN 1 GM/1 G1 IV; +[UNRECOGNIZED DRUG - OTHER] IV
[2017-07-21 18:17] LABS: BASOPHILS 0.3 % (0-2); EOSINOPHILS 0.2 % (0-7); HEMATOCRIT 29.1 % (36.0-48.0); HEMOGLOBIN 8.2 g/dL (12-16); IMMATURE GRANULOCYTES 0.4 % (0-5); LYMPHOCYTES 13.6 % (15-50); MCH 21.1 pg (26.0-34.0); MCHC 28.2 g/dL (31.0-37.0); MCV 74.8 fL (80.0-100.0); MEAN PLATELET VOLUME 8.2 fL (7.4-10.4); NEUTROPHILS 81.5 % (40-80); PLATELET COUNT 625 10x3/uL (130-400); RBC 3.89 10x6/uL (4.00-5.40); RDW 21.3 % (11.5-14.5); WBC 19.8 10x3/uL (4.8-10.8)
[2017-07-21 18:29] LABS: INR 1.21 (0.85-1.17); PROTIME 14.9 SECONDS (11.6-15.0)
[2017-07-21 18:37] LABS: ALKALINE PHOSPHATASE 171 U/L (46-116); ALT (SGPT) 24 U/L (10-68); BILIRUBIN - TOTAL 0.42 mg/dL (0.2-1.3); CALC OSMOLALITY 272 mosm/kg (275-300); CALCIUM 8.9 mg/dL (8.5-10.1); CARBON DIOXIDE 30.2 mmol/L (21.0-32.0); CHLORIDE - SERUM 100 mmol/L (98-107); CREATININE - SERUM 0.7 mg/dL (0.6-1.3); GLUCOSE 121 mg/dL (74-106); POTASSIUM - SERUM 3.9 mmol/L (3.5-5.1); PROTEIN - SERUM 7.6 g/dL (6.4-8.2); SODIUM 136 mmol/L (136-145); UREA NITROGEN 12 mg/dL (7-18); eGFR NON AFRICAN AMERICAN > 90 mL/min (90-120)
[2017-07-21 18:44] LABS: D-DIMER-QUANTITATIVE 4.67 ug/mLFEU (0.20-0.54)
[2017-07-21 18:46] LABS: CREATINE KINASE 27 UL (21-215); PRO BNP 447 pg/mL (0-125)
[2017-07-21 18:49] LABS: TROPONIN-I < 0.017 ng/mL (0.000-0.060)
[2017-07-21 20:33] LABS: % SATURATION 4 % (15-55); IRON 9 ug/dl (35-150); TOTAL IRON BIND CAPACITY 199 ug/dl (260-445); UNSAT IRON BIND CAPACITY 190 ug/dl (150-375)
[2017-07-22 01:45] LABS: CKMB 0.7 U/L (0.0-3.6); CREATINE KINASE 50 UL (21-215); TROPONIN-I < 0.017 ng/mL (0.000-0.060)
[2017-07-22 03:17] LABS: APPEARANCE CLOUDY (CLEAR); BILIRUBIN NEGATIVE (NEGATIVE); COLOR YELLOW (YELLOW); GLUCOSE NEGATIVE (NEGATIVE); KETONE NEGATIVE (NEGATIVE); NITRITE POSITIVE (NEGATIVE); PROTEIN 2+ mg/dL (NEGATIVE)
[2017-07-22 03:18] LABS: BACTERIA MANY /hpf (NONE SEEN); EPITHELIAL CELLS 0-5 /hpf (0-5); RED CELLS - URINE 0-5 /hpf (0-5)
[2017-07-22 03:19] LABS: TRIPLE PHOSPHATE CRYSTALS 0-5 /hpf (NONE SEEN)
[2017-07-22 04:24] VITALS: BP 98/39; BMI 23.5
[2017-07-22 04:47] VITALS: BP 108/74
[2017-07-22 05:58] LABS: BASOPHILS 0.2 % (0-2); EOSINOPHILS 0.2 % (0-7); HEMATOCRIT 26.2 % (36.0-48.0); IMMATURE GRANULOCYTES 0.3 % (0-5); LYMPHOCYTES 14.4 % (15-50); MCH 21.1 pg (26.0-34.0); MCHC 27.9 g/dL (31.0-37.0); MCV 75.7 fL (80.0-100.0); MEAN PLATELET VOLUME 8.5 fL (7.4-10.4); MONOCYTES 4.1 % (2-11); NEUTROPHILS 80.8 % (40-80); PLATELET COUNT 592 10x3/uL (130-400); RBC 3.46 10x6/uL (4.00-5.40); RDW 21.3 % (11.5-14.5); WBC 17.3 10x3/uL (4.8-10.8)
[2017-07-22 06:06] LABS: CALCIUM 8.2 mg/dL (8.5-10.1); CARBON DIOXIDE 25.2 mmol/L (21.0-32.0); CHLORIDE - SERUM 100 mmol/L (98-107); GLUCOSE 120 mg/dL (74-106); POTASSIUM - SERUM 3.8 mmol/L (3.5-5.1); SODIUM 135 mmol/L (136-145); eGFR NON AFRICAN AMERICAN 80 mL/min (90-120)
[2017-07-22 06:07] LABS: CALC OSMOLALITY 268 mosm/kg (275-300); CREATININE - SERUM 0.9 mg/dL (0.6-1.3); UREA NITROGEN 7 mg/dL (7-18)
[2017-07-22 06:35] LABS: HEMOGLOBIN 7.3 g/dL (12-16)
[2017-07-22 08:03] VITALS: BP 95/57
[2017-07-22 14:55] VITALS: BP 98/50
[2017-07-22 21:41] VITALS: BP 129/73
[2017-07-23 02:35] VITALS: BP 106/59
[2017-07-23 06:17] LABS: BASOPHILS 0.1 % (0-2); EOSINOPHILS 0.6 % (0-7); HEMATOCRIT 25.4 % (36.0-48.0); IMMATURE GRANULOCYTES 0.3 % (0-5); LYMPHOCYTES 19.2 % (15-50); MCH 21.4 pg (26.0-34.0); MCHC 28.3 g/dL (31.0-37.0); MCV 75.6 fL (80.0-100.0); MEAN PLATELET VOLUME 8.5 fL (7.4-10.4); MONOCYTES 5.4 % (2-11); NEUTROPHILS 74.4 % (40-80); PLATELET COUNT 562 10x3/uL (130-400); RBC 3.36 10x6/uL (4.00-5.40); RDW 20.9 % (11.5-14.5); WBC 13.8 10x3/uL (4.8-10.8)
[2017-07-23 06:27] LABS: HEMOGLOBIN 7.2 g/dL (12-16)
[2017-07-23 07:10] LABS: ALBUMIN 1.8 g/dL (3.4-5.0); ALKALINE PHOSPHATASE 170 U/L (46-116); ALT (SGPT) 26 U/L (10-68); CALCIUM 8.4 mg/dL (8.5-10.1); CARBON DIOXIDE 26.2 mmol/L (21.0-32.0); CHLORIDE - SERUM 99 mmol/L (98-107); CREATININE - SERUM 0.7 mg/dL (0.6-1.3); GLUCOSE 116 mg/dL (74-106); MAGNESIUM - SERUM 1.7 mg/dL (1.8-2.4); PHOSPHOROUS 3.4 mg/dL (2.5-4.9); POTASSIUM - SERUM 3.6 mmol/L (3.5-5.1); PROTEIN - SERUM 6.9 g/dL (6.4-8.2); SODIUM 134 mmol/L (136-145); THYROID STIMULATING HORMONE 12.63 uIU/mL (0.36-3.74); eGFR NON AFRICAN AMERICAN > 90 mL/min (90-120)
[2017-07-23 07:12] LABS: CALC OSMOLALITY 265 mosm/kg (275-300); UREA NITROGEN 5 mg/dL (7-18)
[2017-07-23 09:07] VITALS: BP 113/59
[2017-07-23 13:13] VITALS: BP 93/55
[2017-07-23 17:45] VITALS: BP 106/57
[2017-07-23 20:00] VITALS: BP 113/52
[2017-07-23 22:16] VITALS: BP 106/58
[2017-07-24 05:26] VITALS: BP 106/60
[2017-07-24 05:36] LABS: BASOPHILS 0.2 % (0-2); EOSINOPHILS 1.6 % (0-7); IMMATURE GRANULOCYTES 0.3 % (0-5); LYMPHOCYTES 23.4 % (15-50); MCH 22.6 pg (26.0-34.0); MCHC 29.6 g/dL (31.0-37.0); MCV 76.4 fL (80.0-100.0); MEAN PLATELET VOLUME 8.5 fL (7.4-10.4); MONOCYTES 6.1 % (2-11); NEUTROPHILS 68.4 % (40-80); PLATELET COUNT 495 10x3/uL (130-400); RDW 20.2 % (11.5-14.5); WBC 10.6 10x3/uL (4.8-10.8)
[2017-07-24 05:37] LABS: HEMATOCRIT 31.1 % (36.0-48.0); HEMOGLOBIN 9.2 g/dL (12-16); RBC 4.07 10x6/uL (4.00-5.40)
[2017-07-24 05:51] LABS: CALC OSMOLALITY 272 mosm/kg (275-300); CALCIUM 8.5 mg/dL (8.5-10.1); CARBON DIOXIDE 27.4 mmol/L (21.0-32.0); CHLORIDE - SERUM 101 mmol/L (98-107); CREATININE - SERUM 0.6 mg/dL (0.6-1.3); GLUCOSE 107 mg/dL (74-106); MAGNESIUM - SERUM 1.7 mg/dL (1.8-2.4); PHOSPHOROUS 3.8 mg/dL (2.5-4.9); POTASSIUM - SERUM 3.8 mmol/L (3.5-5.1); SODIUM 138 mmol/L (136-145); UREA NITROGEN 5 mg/dL (7-18); eGFR NON AFRICAN AMERICAN > 90 mL/min (90-120)
[2017-07-24 08:03] VITALS: BP 96/59
[2017-07-24 10:35] VITALS: BMI 23.5
[2017-07-24 12:58] VITALS: BP 90/50
[2017-07-24 21:32] VITALS: BP 90/48
[2017-07-25 05:49] LABS: BASOPHILS 0.3 % (0-2); EOSINOPHILS 4.1 % (0-7); HEMATOCRIT 33.6 % (36.0-48.0); IMMATURE GRANULOCYTES 0.5 % (0-5); LYMPHOCYTES 30.2 % (15-50); MCH 22.8 pg (26.0-34.0); MCHC 29.8 g/dL (31.0-37.0); MCV 76.5 fL (80.0-100.0); MEAN PLATELET VOLUME 8.4 fL (7.4-10.4); MONOCYTES 5.8 % (2-11); NEUTROPHILS 59.1 % (40-80); PLATELET COUNT 496 10x3/uL (130-400); RBC 4.39 10x6/uL (4.00-5.40); RDW 20.5 % (11.5-14.5)
[2017-07-25 05:50] LABS: WBC 6.5 10x3/uL (4.8-10.8)
[2017-07-25 06:01] LABS: CALC OSMOLALITY 269 mosm/kg (275-300); CARBON DIOXIDE 28.5 mmol/L (21.0-32.0); CHLORIDE - SERUM 99 mmol/L (98-107); CREATININE - SERUM 0.5 mg/dL (0.6-1.3); GLUCOSE 101 mg/dL (74-106); POTASSIUM - SERUM 3.5 mmol/L (3.5-5.1); SODIUM 136 mmol/L (136-145); UREA NITROGEN 6 mg/dL (7-18); eGFR NON AFRICAN AMERICAN > 90 mL/min (90-120)
[2017-07-25 08:59] VITALS: BP 95/61
[2017-07-25 13:09] VITALS: BP 96/48
[2017-07-25 22:35] VITALS: BP 91/53
[2017-07-26 08:28] VITALS: BP 88/49
[2017-07-26 13:25] VITALS: BP 90/46
[2017-07-26 16:13] VITALS: BP 102/61
[2017-07-26 20:00] VITALS: BP 93/46
[2017-07-27] VITALS: BP 98/51
[2017-07-27 04:00] VITALS: BP 98/36
[2017-07-27 21:45] VITALS: BP 99/50
[2017-07-28 01:01] VITALS: BP 108/54
[2017-07-28 04:45] VITALS: BP 101/60
[2017-07-28 16:13] VITALS: BP 95/54
[2017-07-28 21:07] VITALS: BP 102/46
[2017-07-29 01:17] VITALS: BP 124/54
[2017-07-29 04:44] VITALS: BP 108/64
[2017-07-29 08:00] VITALS: BP 93/54
[2017-07-29 20:15] VITALS: BP 95/57
[2017-07-30 01:48] VITALS: BP 101/54
[2017-07-30 04:53] VITALS: BP 95/64
[2017-07-30 08:32] VITALS: BP 94/56
[2017-07-30 12:30] VITALS: BP 88/54
[2017-07-30 16:26] VITALS: BP 93/52
[2017-07-30 22:29] VITALS: BP 104/66
[2017-07-31 08:26] VITALS: BP 103/56
[2017-07-31 10:56] LABS: BASOPHILS 0.5 % (0-2); EOSINOPHILS 4.1 % (0-7); HEMATOCRIT 35.8 % (36.0-48.0); HEMOGLOBIN 10.2 g/dL (12-16); IMMATURE GRANULOCYTES 1.2 % (0-5); LYMPHOCYTES 42.5 % (15-50); MCH 22.7 pg (26.0-34.0); MCHC 28.5 g/dL (31.0-37.0); MCV 79.7 fL (80.0-100.0); MEAN PLATELET VOLUME 8.2 fL (7.4-10.4); MONOCYTES 5.2 % (2-11); NEUTROPHILS 46.5 % (40-80); PLATELET COUNT 455 10x3/uL (130-400); RBC 4.49 10x6/uL (4.00-5.40); RDW 21.2 % (11.5-14.5); WBC 7.8 10x3/uL (4.8-10.8)
[2017-07-31 11:08] LABS: CALC OSMOLALITY 277 mosm/kg (275-300); CALCIUM 8.1 mg/dL (8.5-10.1); CARBON DIOXIDE 33.9 mmol/L (21.0-32.0); CHLORIDE - SERUM 103 mmol/L (98-107); CREATININE - SERUM 0.5 mg/dL (0.6-1.3); GLUCOSE 89 mg/dL (74-106); POTASSIUM - SERUM 4.1 mmol/L (3.5-5.1); SODIUM 141 mmol/L (136-145); UREA NITROGEN 6 mg/dL (7-18); eGFR NON AFRICAN AMERICAN > 90 mL/min (90-120)
[2017-07-31 12:47] VITALS: BP 99/63
[2017-07-31 16:17] VITALS: BP 89/52
[2017-07-31 20:00] VITALS: BP 94/54
[2017-08-01] VITALS (11 sets, daily range): BP systolic 87–102; BP diastolic 45–56
[2017-08-01 06:45] LABS: BASOPHILS 0.1 % (0-2); EOSINOPHILS 4.2 % (0-7); HEMATOCRIT 34.3 % (36.0-48.0); HEMOGLOBIN 9.8 g/dL (12-16); IMMATURE GRANULOCYTES 1.2 % (0-5); MCH 22.7 pg (26.0-34.0); MCHC 28.6 g/dL (31.0-37.0); MCV 79.6 fL (80.0-100.0); MEAN PLATELET VOLUME 8.2 fL (7.4-10.4); MONOCYTES 5.5 % (2-11); PLATELET COUNT 421 10x3/uL (130-400); RBC 4.31 10x6/uL (4.00-5.40); RDW 21.1 % (11.5-14.5); WBC 6.9 10x3/uL (4.8-10.8)
[2017-08-01 06:57] LABS: APTT 29.2 SECONDS (22.8-39.4); INR 1.07 (0.85-1.17); PROTIME 13.5 SECONDS (11.6-15.0)
[2017-08-01 06:58] LABS: CALC OSMOLALITY 277 mosm/kg (275-300); CALCIUM 8.2 mg/dL (8.5-10.1); CARBON DIOXIDE 30.3 mmol/L (21.0-32.0); CHLORIDE - SERUM 104 mmol/L (98-107); CREATININE - SERUM 0.5 mg/dL (0.6-1.3); GLUCOSE 90 mg/dL (74-106); POTASSIUM - SERUM 3.7 mmol/L (3.5-5.1); SODIUM 141 mmol/L (136-145); UREA NITROGEN 4 mg/dL (7-18); eGFR NON AFRICAN AMERICAN > 90 mL/min (90-120)
[2017-08-02 04:00] VITALS: BP 105/95
[2017-08-02 12:29] VITALS: BP 101/58
[2017-08-02 20:00] VITALS: BP 94/59
[2017-08-03 04:20] VITALS: BP 94/57
[2017-08-03 06:29] LABS: BASOPHILS 0.2 % (0-2); EOSINOPHILS 4.3 % (0-7); HEMATOCRIT 35.4 % (36.0-48.0); HEMOGLOBIN 10.2 g/dL (12-16); IMMATURE GRANULOCYTES 0.6 % (0-5); LYMPHOCYTES 45.5 % (15-50); MCH 23.1 pg (26.0-34.0); MCHC 28.8 g/dL (31.0-37.0); MCV 80.1 fL (80.0-100.0); MEAN PLATELET VOLUME 8.6 fL (7.4-10.4); MONOCYTES 5.1 % (2-11); NEUTROPHILS 44.3 % (40-80); PLATELET COUNT 446 10x3/uL (130-400); RBC 4.42 10x6/uL (4.00-5.40); RDW 21.5 % (11.5-14.5); WBC 8.1 10x3/uL (4.8-10.8)
[2017-08-03 06:46] LABS: C-REACTIVE PROTEIN 3.1 mg/dL (0.0-0.9); CALC OSMOLALITY 275 mosm/kg (275-300); CALCIUM 8.6 mg/dL (8.5-10.1); CARBON DIOXIDE 30.8 mmol/L (21.0-32.0); CHLORIDE - SERUM 101 mmol/L (98-107); CREATININE - SERUM 0.6 mg/dL (0.6-1.3); GLUCOSE 101 mg/dL (74-106); POTASSIUM - SERUM 4.1 mmol/L (3.5-5.1); SODIUM 139 mmol/L (136-145); UREA NITROGEN 8 mg/dL (7-18); eGFR NON AFRICAN AMERICAN > 90 mL/min (90-120)
[2017-08-03 09:14] LABS: ERYTHROCYTE SEDIMENTATION RATE 46 mm/hr (0-20)
[2017-08-03] MEDS ORDERED: SYNTHROID150 MCG PO (11:08)
[2017-08-20 07:55] VITALS: Ht 170.2 cm; Wt 68.0 kg
== END 2017-08-03 15:09 | DRG 500 ==
LOC: D.MS → D.ER 17:16 → D.EDHOLD 20:20 → D.MS 20:20
PROVIDERS: Emergency Medicine; Family Medicine; Nurse Practitioner Family; Radiology Vascular & Interventional Radiology; Student in an Organized Health Care Education/Training Program; Surgery
PROC: 0J9M0ZZ Drainage of Left Upper Leg Subcutaneous Tissue and Fascia, Open Approach (ICD-10-PCS; principal; 2017-07-22 10:30)
PROC: 05H533Z Insertion of Infusion Device into Right Subclavian Vein, Percutaneous Approach (ICD-10-PCS; 2017-07-28)
PROC: B5161ZA Fluoroscopy of Right Subclavian Vein using Low Osmolar Contrast, Guidance (ICD-10-PCS; 2017-07-28)
PROC: 0K9P30Z Drainage of Left Hip Muscle with Drainage Device, Percutaneous Approach (ICD-10-PCS; 2017-08-01)
DX: M60.052 Infective myositis, left thigh (principal); L89.154 Pressure ulcer of sacral region, stage 4; G82.20 Paraplegia, unspecified; M86.652 Other chronic osteomyelitis, left thigh; N39.0 Urinary tract infection, site not specified; L03.116 Cellulitis of left lower limb; L03.115 Cellulitis of right lower limb; L02.416 Cutaneous abscess of left lower limb; G40.909 Epilepsy, unspecified, not intractable, without status epilepticus; N76.0 Acute vaginitis; F41.8 Other specified anxiety disorders; L89.520 Pressure ulcer of left ankle, unstageable; L89.510 Pressure ulcer of right ankle, unstageable; E03.9 Hypothyroidism, unspecified; R60.9 Edema, unspecified; E55.9 Vitamin D deficiency, unspecified; E53.8 Deficiency of other specified B group vitamins; B96.20 Unspecified Escherichia coli [E. coli] as the cause of diseases classified elsewhere; B96.4 Proteus (mirabilis) (morganii) as the cause of diseases classified elsewhere; R01.1 Cardiac murmur, unspecified; Z91.19 Patient's noncompliance with other medical treatment and regimen; L29.9 Pruritus, unspecified; T40.2X5A Adverse effect of other opioids, initial encounter; T36.1X5A Adverse effect of cephalosporins and other beta-lactam antibiotics, initial encounter; D50.9 Iron deficiency anemia, unspecified; E88.09 Other disorders of plasma-protein metabolism, not elsewhere classified; F17.200 Nicotine dependence, unspecified, uncomplicated

== ENCOUNTER → 2017-09-07 12:44 | Outpatient (CLI) | payer BC, MEDICAID ==
[2017-08-20 07:55] VITALS: BMI 23.5
--- NOTE | ~2017-09-07 | HEMODYNAMI ---
PATIENT:SANTANA PADILLA MEDICAL RECORD: [id number] : [birth year] LOCATION:ADAM ADMISSION DATE: 09/07/17 Generatedon:09/07/201716:53 Patient name: SANTANA PADILLA Patient #: [id number] SSN: D OB: 1990 Date of study: 09/07/2017 Page: Of Hemodynamic Procedure Report Patient Data Patient Demographics Procedure consent was obtained First Name: SANTANA Gender: Female Last Name: RANDY : 1990 Middle Initial: L Age: 27 year(s) Patient #: [id number] Race: Black Additional ID: [id number] Contact details Address: [address] [place] [address] ROAD State: [place] City: [place] Zip code: [address] Admission Admission Data Admission Date: 09/07/2017 Admission Time: 12:44 Procedure Procedure Types Cath Procedure Peripheral Cath Diagnostic Procedure Cath Peripheral PICC PICC Line Placement Procedure Description Procedure Date Procedure Date: 09/07/2017 Procedure Start Time: 15:59 Procedure Staff Name Function Zoraida Fofana MD Ordering physician Zoraida Fofana MD Interpreting machine bender Santos Tom MD Performing Physician Joanne Stevens RT Channel Opener Outsoles Vanessa Ferrara RN Nurse Humberto Cummins RT Scrub Procedure Data Cath Procedure Fluoroscopy Diagnostic fluoroscopy Total fluoroscopy Time: 2.8 time: 2.8 min min Diagnostic fluoroscopy Total fluoroscopy dose: 14 dose: 14 mGy mGy Hemodynamics Rest Pre Cath Intra NCS Post Cath Procedure Log Time Note 15:20:52 Time tracking: Call back (After hours or weekends) 15:25:52 Use device set IR Diagnostic 15:26:01 Sterile Angiographic Pack opened to sterile field. 15:26:02 Bag Decanter (2002S) opened to sterile field. 15:26:14 SHIELD Sorbaview ([id number]) opened to sterile field. 15:26:27 PowerPICC 5Fr double lumen catheter opened to sterile field. 15:59:02 PICC 15:59:08 Signed procedure consent form obtained from patient. 15:59:19 Right Arm area was prepped with chlora-prep and draped in sterile fashion 15:59:20 --------ALL STOP TIME OUT------ 15:59:21 Final Timeout: patient, procedure, and site verified with staff and physician. All members of the team are in agreement. 15:59:40 Local anesthetic to right arm with Lidocaine 1% by Santos Tom MD.INITIAL ACCESS ONLY 15:59:44 Procedure started. 15:59:44 Full Disclosure recording started 16:07:00 NITINOL .018 80cm wire ([id number]) opened to sterile field. 16:28:55 Left Arm area was prepped with chlora-prep and draped in sterile fashion 16:29:03 Venous access obtained using ultrasound guidance. 16:30:13 Tegaderm 4 x 4 ([id number]) opened to sterile field. 16:30:22 Tegaderm 4 x 4 (1626W) opened to sterile field. 16:46:18 PICC line was trimmed to 47cm and advanced to the superior vena cava.Position verified under fluoroscopy. 16:46:41 SUTURE ETHILON 2-0 BLK MONO FS opened to sterile field. 16:47:15 Procedure ended.(Physican Out) 16:49:59 Fluoroscopy time 02.80 minutes. 16:50:04 Fluoroscopy dose: 14 mGy 16:50:04 Flurop Dose total: 14 16:50:07 Procedure and supply charges have been captured, reviewed, submitted and are correct. 16:52:52 Report given to Other. 16:53:01 Patient transfered to Other with Wheelchair. Device Usage Item Name Manufacture Quantity Catalog Hospital Part Current Minimal Lot# / Number Charge Number Stock Stock Serial# Code Sterile Cardinal 1 [id number] 5 Angiographic Health Pack Bag Decanter Microtek 1 [id number] 96344 [id number] 5 () [employer] Inc[employer] SHIELD Centurion 1 [id number] [id number] 518452 5 Sorbaview ([id number]) PowerPICC Bard 1 [id number] [id number] 392007 154583 5 5Fr double lumen catheter NITINOL .018 Medtronic 1 [id number] 210802 5 80cm wire ([id number]) Tegaderm 4 x 3M 1 1626W 136148 137509 091100 5 4 (1626W) SUTURE Ethicon 1 [id number] [id number] 5 ETHILON 2-0 BLK MONO FS Signature Audit Brewer Stage Time Signature Unsigned Intra-Procedure 09/07/2017 Joanne Stevens 4:53:16 PM RT(R) [facility] [address] [place] [address]
[~2017-09-07 12:44] MED LIST changes: +SYNTHROID150 MCG PO
== END | disposition home or self-care (01) ==
LOC: D.OPS 12:30
DX: L02.91 Cutaneous abscess, unspecified (principal); G83.9 Paralytic syndrome, unspecified; Z01.812 Encounter for preprocedural laboratory examination

== ENCOUNTER 2018-03-10 21:01 | Emergency (ER) | payer BC, MEDICAID ==
[~2018-03-10] VITALS: Ht 170.2 cm; Wt 63.6 kg
[2018-03-10 21:04] VITALS: Ht 170.2 cm; Wt 63.6 kg
[2018-03-10] MEDS ORDERED: CELEXA40 MG PO (21:08)
[2018-03-10] MEDS ORDERED: XANAX1 MG PO (21:08)
[2018-03-10 23:17] LABS: BASOPHILS 0.2 % (0-2); EOSINOPHILS 1.7 % (0-7); HEMATOCRIT 35.4 % (36.0-48.0); IMMATURE GRANULOCYTES 0.7 % (0-5); LYMPHOCYTES 27.2 % (15-50); MCH 23.9 pg (26.0-34.0); MCHC 31.1 g/dL (31.0-37.0); MEAN PLATELET VOLUME 8.5 fL (7.4-10.4); NEUTROPHILS 66.2 % (40-80); RDW 19.3 % (11.5-14.5); WBC 11.2 10x3/uL (4.8-10.8)
[2018-03-10 23:20] LABS: PLATELET COUNT 648 10x3/uL (130-400)
[2018-03-10 23:48] LABS: ALBUMIN 2.5 g/dL (3.4-5.0); ALKALINE PHOSPHATASE 121 U/L (46-116); ALT (SGPT) 16 U/L (10-68); BILIRUBIN - TOTAL 0.32 mg/dL (0.2-1.3); CALC OSMOLALITY 270 mosm/kg (275-300); CALCIUM 8.1 mg/dL (8.5-10.1); CHLORIDE - SERUM 99 mmol/L (98-107); CREATINE KINASE 49 UL (21-215); CREATININE - SERUM 0.7 mg/dL (0.6-1.3); GLUCOSE 92 mg/dL (74-106); PRO BNP 26 pg/mL (0-125); PROTEIN - SERUM 8.3 g/dL (6.4-8.2); SODIUM 137 mmol/L (136-145); eGFR NON AFRICAN AMERICAN > 90 mL/min (90-120)
[2018-03-10 23:50] LABS: UREA NITROGEN 4 mg/dL (7-18)
[2018-03-11] MEDS ORDERED: CLEOCIN HCL300 MG PO (01:46)
[2018-03-11] MEDS ORDERED: HYDROCODON-ACE1 EAC7 PO (01:46)
[2018-03-11 02:48] VITALS: BP 116/72
== END 2018-03-11 02:45 | disposition home or self-care (01) ==
LOC: D.ER 21:01
PROVIDERS: Emergency Medicine
DX: M62.3 Immobility syndrome (paraplegic) (principal); M79.605 Pain in left leg; M79.604 Pain in right leg; M79.672 Pain in left foot; M79.671 Pain in right foot; F17.200 Nicotine dependence, unspecified, uncomplicated